=== PATIENT | male | born 1960 | race American Indian/Alaskan Native ===

== ENCOUNTER 2016-07-04 05:50 | Day surgery (SDC) | payer MEDICARE ==
--- NOTE | 2016-06-30 11:08 | Admit Criteria Form ---
Admission Criteria Documentation: AMBULATORY SURGERY EXCEPTION CRITERIA Ambulatory Surgery Exception Criteria ( Place 'X' for any and all applicable criteria): Surgery or procedure performed on ambulatory basis may require inpatient stay for[A] ANY ONE of the following(1)(2)(3)(4)(5)(6)(7)(8)(9): [X] I. A preoperative situation, condition, or finding that warrants inpatient stay as indicated by ANY ONE of the following: [] a) Inpatient care needed because of severity of a disease or condition rather than the surgery (eg, severe cardiac or respiratory disease, severe infection) (15) (16 ) (17) (18) [] b) Emergent procedure (eg, angioplasty for acute ischemia)(19) [] c) Complex surgical approach or situation as indicated by ANY ONE of the following(3): [] i) Open approach needed instead of usual endoscopic, transcatheter, or other less invasive procedure [] ii) Difficult approach because of previous operation [] iii) Airway monitoring required after open neck procedures(20)(21) [] iv) Large mass requiring unusually extensive dissection [] v) Additional complicating feature requiring inpatient care (eg, drain management)(22(23): [X] d) Major surgery in a pt with high anesthetic risk as indicated by ANY ONE of the following (2)(3)(5)(7)(8): [X] i) ASA risk class III or higher (severe systemic disease impairing function) [D] [] ii) Advanced age (eg, older than 85 years)(14)(24) [] iii) Symptomatic heart failure(25) [] iv) Symptomatic asthma or COPD(8)(21) [] v) Morbid obesity with hemodynamic or respiratory problems(20)( 21)(26)(27) [] vi) Obstructive sleep apnea(20)(21) [] vii) Former premature infants who are younger than 60 weeks [] viii) High risk for severe postoperative abnormalities (eg, severe postoperative hypocalcemia after parathyroidectomy for severe hyperparathyroidism)(27)( 28) [] ix) Unstable angina(25) [] e) Drug-related risk requiring inpatient stay as indicated by ANY ONE of the following(5)(10)(14)(32)(33) [] i) Procedure requires discontinuing drugs or other therapy (eg , antiarrhythmic medication, antiseizure medication), which necessitates inpatient observation or treatment.(18)(31) [] ii) Major surgery and high risk drug use as indicated by ANY ONE of the following: [] 1) Active abuse of cocaine or similar drug [] 2) Monoamine oxidase inhibitor use [] 3) Other drug identified as posing risk [] f) Inadequate outpatient care situation as indicated by ANY ONE of the following(5)(10)(14)(32)(33) [] i) Patient lives remote from medical facility and procedure has urgent complication potential, and temporary nearby residence cannot be arranged [] ii) Patient will have postprocedure incapacitation and inadequate assistance at home, or alternative level of care cannot be arranged. [] iii) Patient will have long general anesthesia or procedure side effect resolution time, and competent person to stay with patient on first postoperative night at home or alternative level of care cannot be arranged. []iv) Other inadequate outpatient situation that cannot be handled by other means [] II. A perioperative event, condition, or finding that warrants inpatient stay as indicated by ANY ONE of the following (1)(2)(3): [] a) Inadequate physiologic recovery: cardiovascular, respiratory, or hemodynamic status not normal or near preoperative baseline(18) [] b) Hemodynamic instability [] c) Patient not alert with near normal or baseline mental status [] d) Temperature not normal or as expected and not appropriate for outpatient treatment of condition [] e) Ambulatory or appropriate activity level status not yet achieved post procedure [E](34)(35)(36) [] f) Operative site not appropriate (eg, unexpected or excessive drainage or bleeding) [] g) Postoperative effects not resolved or adequately managed (eg, significant pain or vomiting not appropriate for outpatient or next level of care)(10)(12) [] h) Complicating features requiring inpatient care as indicated by ANY ONE of the following(37): [] i) Severe complications of procedure (eg, bowel injury, airway compromise, vascular injury,severe hemorrhage) [] ii) Extensive (eg, dissection far beyond usual scope of procedure ) or prolonged (eg, 120 minutes beyond usual) surgery needed requiring inpatient postoperative care [] iii) Conversion to an open or complex procedure that requires inpatient care (eg, open vs laparoscopic cholecystectomy, abdominal vs vaginal hysterectomy)(38) [] iv) Comorbid condition or test result identified during or post procedure that requires inpatient care (7) [] v) Malignant hyperthermia(30) [] vi) Other complicating feature requiring inpatient care(22)(23) Inpatient stay may be needed until ALL of the following are present (1)(2)(3)(4) (5)(6)(10)(14)(33)(40): []a) Physiologic recovery: cardiovascular, respiratory, and hemodynamic status normal or near preoperative baseline []b) Hemodynamic stability []c) Patient alert, with near normal or baseline mental status []d) Temperature appropriate: patient afebrile or temperature appropriate for outpt treatment of condition []e) Activity level appropriate: ambulatory or appropriate activity level post procedure []f) Operative site appropriate as indicated by ALL of the following: []i) Site dry or with expected drainage []ii) Any blood noted is as expected for procedure. []g) Postoperative effects resolved or managed as indicated by ALL of the following: []i) Pain management appropriate for outpatient (or next level of) care(10) []ii) Minimal nausea and vomiting: if present, successfully treated with oral medication(12) []iii) Headache, dizziness, or drowsiness (if present) are mild. []h) Voiding status acceptable as indicated by ANY ONE of the following: []i) Voiding spontaneously []ii) No voiding but instructions given for follow-up in 6 to 8 hours []iii) Urinary catheter in place, and instructions given for follow-up []i) Complicating features requiring inpatient care manageable at a lower level of care(37) []j) Comorbid conditions manageable at a lower level of care(37) The original [employer] content created by [employer] has been revised. The portions of the content which have been revised are identified through the use of italic text or in bold, and [employer] has neither reviewed nor approved the modified material. All other unmodified content is copyright [employer]. Please see references footnoted in the original [employer] edition 2016
[~2016-07-04 05:50] MED LIST: PEPCID PO NR
[2016-07-04] MEDS ORDERED: NACL 0.9% 1000 ML 1,000 ML IV SCH (06:00)
[2016-07-04] MEDS ORDERED: ANCEF/STERILE WATER 2 GM/20 ML 2 GM/20 ML SYRINGE IV NR (06:00)
[2016-07-04] MEDS ORDERED: NACL BACTERIOSTATIC INFILTRATI ONE (06:37)
--- NOTE | 2016-07-04 06:59 | Anesthesia Day of Surgery ---
Anesthesia Day of Surgery - Day of Surgery Patient Examined: Yes Patient H&P Reviewed: Yes Patient is NPO: Yes Beta Blockers: Yes
[2016-07-04] MEDS ORDERED: ZOFRAN IV PRN (07:01)
[2016-07-04] MEDS ORDERED: DILAUDID IV PRN (07:01)
--- NOTE | 2016-07-04 07:01 | Anesthesia Consultation ---
Anesthesia Consult and Med Hx Date of service: 07/04/16 - Airway Anesthetic Teeth Evaluation: Edentulous ROM Head & Neck: Adequate Mental/Hyoid Distance: Adequate Mallampati Class: Class II Intubation Access Assessment: Probably Good - Pulmonary Exam CTA: Yes (blbs clear) - Cardiac Exam Cardiac Exam: RRR - Pre-Operative Health Status ASA Pre-Surgery Classification: ASA4 Proposed Anesthetic Plan: General - Pulmonary Hx Smoking: Yes (1PPD) COPD: Yes - Cardiovascular System Hx Hypertension: Yes (5-6 YRS) Hx Coronary Artery Disease: Yes Hx Heart Attack/AMI: Yes (2016) Hx Heart Murmur: Yes Hx Peripheral Vascular Disease: Yes - Central Nervous System Hx Back Pain: Yes Hx Psychiatric Problems: No - Gastrointestinal Hx Gastroesophageal Reflux Disease: Yes (nausea) - Endocrine Hx Renal Disease: Yes Hx End Stage Renal Disease: Yes (on HD) Hx Cirrhosis: Yes Hx Liver Disease: Yes (CIRRHOSIS , HEPATITIS B) Hx Non-Insulin Dependent Diabetes: Yes - Hematic Hx Anemia: Yes - Other Systems Hx Cancer: No
[2016-07-04] MEDS ORDERED: MARCAINE 0.25% INFILTRATI ONE ×3 (07:07→08:59)
[2016-07-04] MEDS ORDERED: NACL 0.9% 500 ML 500 ML ONE (07:07)
[2016-07-04] MEDS ORDERED: HEPARIN 10,000 UNITS/10 ML ONE (07:07)
[2016-07-04] MEDS ORDERED: PROTAMINE SULFATE ONE (07:07)
[2016-07-04] MEDS ORDERED: PAPAVERINE ONE (07:07)
[2016-07-04] MEDS ORDERED: DIPRIVAN 10 MG/ML IV ONE ×2 (07:25)
[2016-07-04] MEDS ORDERED: XYLOCAINE MPF 2% ONE (07:25)
[2016-07-04] MEDS ORDERED: SUBLIMAZE ONE (07:25)
[2016-07-04] MEDS ORDERED: ZEMURON IV ONE (07:47)
[2016-07-04] MEDS ORDERED: NACL 0.9% 100 ML ONE (08:32)
[2016-07-04] MEDS ORDERED: DECADRON ONE (08:36)
[2016-07-04] MEDS ORDERED: ZOFRAN ONE (08:36)
[2016-07-04] MEDS ORDERED: HEPARIN 10,000 UNITS/10 ML 2,000 UNIT in NACL 0.9% 500 ML 500 ML IR ONE (08:39)
[2016-07-04] MEDS ORDERED: NACL 0.9% 1000 ML IR ONE (08:59)
[2016-07-04] MEDS ORDERED: NEO SYNEPHRINE/NS Syringe(OR USE) IV ONE (09:30)
[2016-07-04] MEDS ORDERED: NEOSTIGMINE ONE ×2 (09:30→09:50)
[2016-07-04] MEDS ORDERED: ROBINUL ONE (09:47)
--- NOTE | 2016-07-04 09:58 | Operative Report ---
Operative Report Operative Report: Date of procedure: 07/04/2016 Pre-operative diagnosis: Right hand ischemia due to steal syndrome from AV fistula. High takeoff of the radial artery. Post-operative diagnosis: The same Procedure name(s): 1. Ligation of radial artery just distal to the arteriovenous anastomosis. 2. Transposition of the radial artery onto the brachial artery. Surgeon: Dony Elmore MD, RPVI Pin Attacher: SHAWN Santana Anesthesia: Gen./local Findings 1. High takeoff of the right radial artery. 2. The fistula is anastomosed to the radial artery above antecubital fossa. 3. Calcified arteries. 4. Preserved thrill in the fistula at the end of the procedure. 5. Palpable pulse and strong triphasic Doppler signal in the radial artery distal to the radial brachial anastomosis. 6. Palpable pulse and strong triphasic Doppler signal in the proximal ulnar artery. 7. Positive Doppler signal in the radial artery at the wrist. Specimens: None EBL: 50 mL IV fluids: 450 mL Urine output: None Disposition: The recovery Indications: Patient was steal syndrome and in usual anatomy where the radial artery originated from the brachial artery at the axilla and the vein was anastomosis to the radial artery just above the antecubital fossa. Procedure: Patient was brought to the operating room laid on table in supine position. Right arm was prepped and draped in usual sterile fashion. The both radial artery and anastomosis were marked on the skin with a help of an ultrasound. The brachial artery was marked on the skin is well after being visualized with ultrasound. The skin was infiltrated with quarter percent Marcaine over the amador for brachial artery. The incision was made using #15 blade. Subcutaneous tissue was divided with Bovie electrocautery. The radial artery distal to the anastomosis was immediately located and dissected free back to the anastomosis. Once enough artery was dissected free it was encircled with a vessel loop. The incision was deepened immediately lateral to the radial artery using Bovie electrocautery. The brachial artery was located and dissected free; the care was taken not to injure the brachial vein. The brachial artery was encircled with Vesseloops proximally and distally patient received 3000 units of intravenous heparin. The radial artery was occluded distally with a vascular clamp. The arteriovenous anastomosis was also occluded with a vascular clamp. The radial artery was divided to right distal to the anastomosis. The proximal portion attached to the anastomosis was oversewn using 6-0 Prolene running suture. The distal portion of the artery was passed underneath the brachial vein to the brachial artery. The arteriotomy on brachial artery was made and 11 blade after it was controlled with vessel loops. It was extended with Kumar scissors. The radial artery was spatulated. The arterial-arterial anastomosis was performed using a running 6-0 Prolene stitch. Despite significant calcifications the anastomosis was completed in the routine fashion. Prior to completion of the anastomosis all arteries were back bled and there was excellent backbleeding from all 3 sites. Then anastomosis was completed. The clamps were removed. The hemostasis was excellent. There was a strong palpable pulse in the radial artery distal to the anastomosis. All vessels were interrogated with a Doppler. A triphasic Doppler signal was observed in all vessels. I did not feel palpable radial pulse at the wrist but there was a strong Doppler signal at the wrist. Once again hemostasis was observed. An incision was closed using 3-0 Vicryl interrupted subcutaneous sutures and 4-0 Monocryl running subcuticular suture. Patient tolerated procedure well. At the end of the case all instrument and sponge counts were correct.
[2016-07-04] MEDS ORDERED: TOPROL XL PO SCH (10:00)
--- NOTE | 2016-07-04 10:01 | Short Stay Summary ---
Short Stay Documentation - History H&P: obtained from office - Allergies and Medications Current Medications: Allergies metformin Adverse Reaction (Verified 03/30/16 09:16) "SPOT ON LIVER" Home Medications Medication Instructions Recorded Confirmed Last Taken Type HYDROcodone/APAP 10-325 [Pelham 1 each PO Q6HR PRN #20 tablet 06/10/13 07/04/16 07/03/16 19:00 Rx 10-325 mg TAB] Omeprazole [PriLOSEC] 1 tab PO DAILY 06/10/13 07/04/16 07/03/16 21:00 History Ondansetron [Zofran Odt] 8 mg PO TID PRN #20 tab.rapdis 06/10/13 07/04/16 21:00 Rx Vit B Cmplx 3/FA/Vit C/Biotin 1 tab PO TID 06/10/13 07/04/16 06/30/16 17:00 History [Dari-Norah Rx Tablet] Aspirin EC [Aspirin Enteric Coated 81 mg PO QDAY 12/16/15 07/04/16 07/04/16 05: 00 History TAB] Calcium Acetate [Phoslo] 667 mg PO TID 12/16/15 07/04/16 06/30/16 17:00 History Calcium Carbonate [Tums Ultra 1,177 mg PO TID 12/16/15 07/04/16 07/03/16 21:00 History Strength] Dexlansoprazole [Dexilant] 60 mg PO QDAY 12/16/15 07/04/16 07/03/16 08:00 History Ergocalciferol [Vitamin D2] 1 cap PO QWEEK 12/16/15 07/04/16 06/28/16 09:00 History ISOSORBIDE MONOnitrate [Imdur ER] 30 mg PO DAILY #30 tab.er.24h 12/16/1507/03/16 08:00 Rx Losartan [Cozaar] 25 mg PO QDAY #30 tablet 12/16/15 07/04/16 07/03/16 08:00 Rx Metoprolol Xl [Metoprolol 25 mg PO QDAY #30 tablet 12/16/15 07/04/16 07/04/16 07 :30 Rx SUCCINATE ER TAB] Simvastatin [Zocor TAB] 40 mg PO QHS #30 tablet 12/16/15 07/04/16 06/30/16 21: 00 Rx Active Medications Famotidine (Pepcid) 20 mg PO PREOP NR Stop: 07/04/16 23:54 Last Admin: 07/04/16 06:50 Dose: 20 mg Hydromorphone HCl (Dilaudid) 0.25 mg IV Q10MIN PRN PRN Reason: Pain, Moderate (4-6) Stop: 07/04/16 23:59 Cefazolin Sodium (Ancef/Sterile Water 2 Gm/20 Ml) 2 gm in 20 mls @ 80 mls/hr IV PREOP NR PRN Reason: Protocol Stop: 07/04/16 23:59 Sodium Chloride (Nacl 0.9% 1000 Ml) 1,000 mls @ 42 mls/hr IV DIRECT JOSH Last Admin: 07/04/16 06:40 Dose: 42 mls/hr Metoprolol Succinate (Toprol Xl) 25 mg PO QDAY JOSH Last Admin: 07/04/16 07:30 Dose: 25 mg - Brief post op/procedure progress note Procedure: Pre-operative diagnosis: Right hand ischemia due to steal syndrome from AV fistula. High takeoff of the radial artery. Post-operative diagnosis: The same Procedure name(s): 1. Ligation of radial artery just distal to the arteriovenous anastomosis. 2. Transposition of the radial artery onto the brachial artery. Surgeon: Dony Elmore MD, RPVI Pathology Teacher: SHAWN Santana Anesthesia: Gen./local Findings 1. High takeoff of the right radial artery. 2. The fistula is anastomosed to the radial artery above antecubital fossa. 3. Calcified arteries. 4. Preserved thrill in the fistula at the end of the procedure. 5. Palpable pulse and strong triphasic Doppler signal in the radial artery distal to the radial brachial anastomosis. 6. Palpable pulse and strong triphasic Doppler signal in the proximal ulnar artery. 7. Positive Doppler signal in the radial artery at the wrist. Specimens: None EBL: 50 mL IV fluids: 450 mL Urine output: None Disposition: The recovery - Disposition Condition at discharge: Good Disposition: DISCHARGED TO HOME OR SELFCARE Short Stay Discharge Plan Activity: advance as tolerated, avoid flexion, other (no heavy lifting for 6 weeks with right arm.) Wound: open to air Additional Instructions: Follow-up with Dr. Elmore in 2 weeks. Follow up with: PRIMARY CARE, [Primary Care Provider] - 7 Days
[2016-07-04] MEDS ORDERED: D50W (25GM) IV ONE (10:23)
[2016-07-04] MEDS ORDERED: D50W (25GM) IV PRN (10:28)
[2016-07-04 12:58] VITALS: BP 106/66
--- NOTE | 2016-07-04 13:30 | Post Anesthesia Evaluation ---
- Post Anesthesia Evaluation Patient Participated: Yes Airway Patent: Yes Stable Respiratory Function: Yes Nausea/Vomiting: No Temp > 96.8F: Yes Pain Manageable: Yes Adequeate Hydration: Yes Anesthesia Complications: No Block Receding Appropriately: Not Applicable Patient on Ventilator: No
== END 2016-07-04 05:51 | disposition home or self-care (01) ==
LOC: OR 05:50
PROVIDERS: ATTEND Surgery Vascular Surgery
DX: T82.898A Other specified complication of vascular prosthetic devices, implants and grafts, initial encounter (principal); E11.22 Type 2 diabetes mellitus with diabetic chronic kidney disease; I12.0 Hypertensive chronic kidney disease with stage 5 chronic kidney disease or end stage renal disease; N18.6 End stage renal disease; I25.10 Atherosclerotic heart disease of native coronary artery without angina pectoris; J44.9 Chronic obstructive pulmonary disease, unspecified; D64.9 Anemia, unspecified; K21.9 Gastro-esophageal reflux disease without esophagitis; F17.210 Nicotine dependence, cigarettes, uncomplicated; Y83.2 Surgical operation with anastomosis, bypass or graft as the cause of abnormal reaction of the patient, or of later complication, without mention of misadventure at the time of the procedure
CPT/HCPCS: 36415; 36838; 82962; 84132; J0690; J1100; J1644; J2370; J2405; J2704; J2710; J3010; J7030; J7040; J2440; J2720

== ENCOUNTER 2016-07-05 04:27 | Emergency (ER) | payer SELFPAY ==
[2016-07-05 04:41] VITALS: BP 147/82
[2016-07-05 05:01] LABS: Basophils % (Auto) 0.6 % (0.0-1.8); Eosinophils % (Auto) 0.4 % (0.0-4.3); Hematocrit 40.3 % (35.5-45.6); Hemoglobin 13.5 gm/dl (11.8-15.2); Mean Corpuscular HGB Conc 34 % (32-34); Mean Corpuscular Hemoglobin 34 pg (28-32); Mean Corpuscular Volume 101 fl (84-94); Red Blood Count 3.98 M/mm3 (3.65-5.03); Red Cell Distribution Width 16.6 % (13.2-15.2); White Blood Count 8.3 K/mm3 (4.5-11.0)
[2016-07-05 05:05] LABS: Platelet Count 94 K/mm3 (140-440)
[2016-07-05 05:19] LABS: BUN/Creatinine Ratio 3.49; Calcium 8.1 mg/dL (8.4-10.2); Chloride 89.4 mmol/L (98-107)
== END 2016-07-05 04:45 | disposition left against medical advice (07) ==
LOC: ED 04:27
DX: R10.9 Unspecified abdominal pain (principal); Z53.21 Procedure and treatment not carried out due to patient leaving prior to being seen by health care provider
CPT/HCPCS: 36415; 80048; 85025

== ENCOUNTER 2016-10-02 11:25 | Emergency (ER) | payer MEDICARE ==
--- NOTE | 2016-10-02 13:18 | Emergency Department Report ---
Chief Complaint: Rectal Pain Stated Complaint: HEMORRHOIDS Time Seen by Provider: 10/02/16 13:15 - HPI History of Present Illness: pt c/o abd pain x 1 week pt also c/o hemorrhoid pain - ROS Review of Systems: - constipation + diarrhea + abd pain - Exam Physical Exam: thin male, no acute distress abd soft, suprapubic mildly ttp MSE screening note: Focused history and physical exam performed. Due to findings the following was ordered: labs ED Disposition for MSE Condition: Stable
[2016-10-02 13:19] VITALS: BP 115/69
[2016-10-02 13:45] LABS: Basophils % (Auto) 1.3 % (0.0-1.8); Hematocrit 43.1 % (35.5-45.6); Hemoglobin 14.5 gm/dl (11.8-15.2); Mean Corpuscular HGB Conc 34 % (32-34); Mean Corpuscular Hemoglobin 33 pg (28-32); Mean Corpuscular Volume 98 fl (84-94); Red Cell Distribution Width 16.3 % (13.2-15.2); White Blood Count 7.4 K/mm3 (4.5-11.0)
[2016-10-02 13:57] LABS: Albumin 4.2 g/dL (3.9-5); Albumin/Globulin Ratio 1.3 %; BUN/Creatinine Ratio 3.66; Bilirubin,Total 0.6 mg/dL (0.1-1.2); Calcium 7.4 mg/dL (8.4-10.2); Chloride 90.7 mmol/L (98-107); Potassium 3.5 mmol/L (3.6-5.0); Total Protein 7.5 g/dL (6.3-8.2)
[2016-10-02 14:31] LABS: Platelet Count 61 K/mm3 (140-440)
--- NOTE | 2016-10-10 00:24 | ED Elopement Review ---
ED Pt Elopement review - Results review Lab results: Laboratory Tests 10/02/16 10/02/16 13:22 13:22 WBC 7.4 RBC 4.40 Hgb 14.5 Hct 43.1 MCV 98 H MCH 33 H MCHC 34 RDW 16.3 H Plt Count 61 L Lymph % (Auto) 27.6 Pershing % (Auto) 6.9 Eos % (Auto) 2.0 Baso % (Auto) 1.3 Lymph # 2.0 Pershing # 0.5 Eos # 0.1 Baso # 0.1 Seg Neutrophils % 62.2 Seg Neutrophils # 4.6 Sodium 136 L Potassium 3.5 L Chloride 90.7 L Carbon Dioxide 18 L Anion Gap 31 BUN 63 H Creatinine 17.2 H Estimated GFR 3 BUN/Creatinine Ratio 3.66 Glucose 83 Calcium 7.4 L Total Bilirubin 0.60 AST 30 ALT 17 Alkaline Phosphatase 40 Total Protein 7.5 Albumin 4.2 Albumin/Globulin Ratio 1.3 - Call Back decision Pt Call Back Decision: No action required
== END 2016-10-02 14:30 | disposition left against medical advice (07) ==
LOC: ED 11:25
DX: Z53.21 Procedure and treatment not carried out due to patient leaving prior to being seen by health care provider (principal)
CPT/HCPCS: 36415; 80053; 85025

== ENCOUNTER 2018-09-27 01:46 | Observation (INO) | payer MEDICARE ==
[2018-09-27 02:53] LABS: Basophils # (Auto) 0.1 K/mm3 (0.0-0.1); Basophils % (Auto) 1.1 % (0.0-1.8); Eosinophils # (Auto) 0.2 K/mm3 (0.0-0.4); Eosinophils % (Auto) 3.2 % (0.0-4.3); Hematocrit 41.9 % (35.5-45.6); Hemoglobin 13.5 gm/dl (11.8-15.2); Lymphocytes # (Auto) 1.1 K/mm3 (1.2-5.4); Lymphocytes % (Auto) 21.3 % (13.4-35.0); Mean Corpuscular HGB Conc 32 % (32-34); Mean Corpuscular Volume 90 fl (84-94); Monocytes # (Auto) 0.6 K/mm3 (0.0-0.8); Monocytes % (Auto) 10.8 % (0.0-7.3); Red Blood Count 4.66 M/mm3 (3.65-5.03); Red Cell Distribution Width 18.1 % (13.2-15.2)
[2018-09-27 02:56] LABS: Platelet Count 60 K/mm3 (140-440)
[2018-09-27 04:21] LABS: Albumin 4.2 g/dL (3.9-5); Calcium 9.6 mg/dL (8.4-10.2)
[2018-09-27] MEDS ORDERED: ZOFRAN IV ONE ×2 (05:52→08:43)
[2018-09-27] MEDS ORDERED: ZOFRAN ONE (05:55)
--- NOTE | 2018-09-27 06:09 | Emergency Department Report ---
ED Abdominal Pain HPI - General Chief Complaint: Abdominal Pain Stated Complaint: ABDOMINAL PAIN, N/V Time Seen by Provider: 09/27/18 06:08 Source: patient Mode of arrival: Ambulatory Limitations: No Limitations - History of Present Illness Initial Comments: Patient is a 57-year-old male presents to emergency room with complaints of abdominal pain. Patient states his pain started about 7 hours ago. Patient states the pain is worse with movement and vomiting. Patient states the pain is better with rest. Patient is complaining of nausea and vomiting as well. Patient states the pain is a 10 out of 10. Patient states the pain is nonradiating. Patient denies fever and chills. MD Complaint: abdominal pain -: Sudden Location: diffuse Radiation: none Migration to: no migration Severity: severe Severity scale (0 -10): 10 Quality: stabbing Consistency: constant Improves With: rest Worsens With: vomiting, movement Associated Symptoms: nausea, vomiting. denies: diarrhea, fever, chills, constipation, dysuria, hematemesis, hematochezia, melena, hematuria, syncope - Related Data Home Medications Medication Instructions Recorded Confirmed Last Taken Omeprazole [PriLOSEC] 1 tab PO DAILY 06/10/13 07/04/16 07/03/16 21:00 Vit B Comp No.3/Folic/C/Biotin 1 tab PO TID 06/10/13 07/04/16 06/30/16 17:00 [Dari-Norah Rx Tablet] Aspirin EC [Halfprin EC] 81 mg PO QDAY 12/16/15 07/04/16 07/04/16 05:00 Calcium Acetate [Phoslo] 667 mg PO TID 12/16/15 07/04/16 06/30/16 17:00 Calcium Carbonate [Tums Ultra 1,177 mg PO TID 12/16/15 07/04/16 07/03/16 21:00 Strength 1177MG CHEW] Dexlansoprazole [Dexilant] 60 mg PO QDAY 12/16/15 07/04/16 07/03/16 08:00 Ergocalciferol [Vitamin D2] 1 cap PO QWEEK 12/16/15 07/04/16 06/28/16 09:00 Previous Rx's Medication Instructions Recorded Last Taken Type HYDROcodone/APAP 10-325 [Datil 1 each PO Q6HR PRN #20 tablet 04/29/14 05/22/17 19:00 Rx 10-325 mg TAB] Ondansetron [Zofran Odt] 8 mg PO TID PRN #20 tab.rapdis 06/10/13 07/03/16 21:00 Rx ISOSORBIDE MONOnitrate [Imdur ER] 30 mg PO DAILY #30 tab.er.24h 12/16/15 08:00 Rx Losartan [Cozaar] 25 mg PO QDAY #30 tablet 12/16/15 07/03/16 08:00 Rx Metoprolol Xl [Metoprolol 25 mg PO QDAY #30 tablet 12/16/15 07/04/16 07:30 Rx SUCCINATE ER TAB] Simvastatin [Zocor TAB] 40 mg PO QHS #30 tablet 12/16/15 06/30/16 21:00 Rx oxyCODONE /ACETAMINOPHEN [Percocet 1 tab PO Q4HR #40 tab 07/04/16 Unknown Rx 5/325] Allergies Allergy/AdvReac Type Severity Reaction Status Date / Time metformin AdvReac "SPOT ON Verified 03/30/16 09:16 LIVER" ED Review of Systems ROS: Stated complaint: ABDOMINAL PAIN, N/V Other details as noted in HPI Constitutional: denies: chills, fever Eyes: denies: eye pain, eye discharge, vision change ENT: denies: ear pain, throat pain Respiratory: denies: cough, shortness of breath, wheezing Cardiovascular: denies: chest pain, palpitations Endocrine: no symptoms reported Gastrointestinal: abdominal pain, nausea, vomiting. denies: diarrhea, constipation, hematemesis, melena, hematochezia Genitourinary: denies: urgency, dysuria Musculoskeletal: denies: back pain, joint swelling, arthralgia Skin: denies: rash, lesions Neurological: denies: headache, weakness, paresthesias Psychiatric: denies: anxiety, depression Hematological/Lymphatic: denies: easy bleeding, easy bruising ED Past Medical Hx - Past Medical History Previous Medical History?: Yes Hx Hypertension: Yes (5-6 YRS) Hx Heart Attack/AMI: Yes (2015) Hx Congestive Heart Failure: Yes (4-5 YRS) Hx Diabetes: Yes (20YRS) Hx GERD: Yes Hx Liver Disease: Yes (CIRRHOSIS , HEPATITIS B) Hx Renal Disease: Yes (Dialysis M,W,F) Hx COPD: Yes Additional medical history: Anemia - Surgical History Past Surgical History?: Yes Hx Cholecystectomy: Yes Additional Surgical History: left dialysis graft, Toe amputation. FISTULA RIGHT ARM - Family History Family history: no significant - Social History Smoking Status: Current Every Day Smoker Substance Use Type: None - Medications Home Medications: Home Medications Medication Instructions Recorded Confirmed Last Taken Type HYDROcodone/APAP 10-325 [Datil 1 each PO Q6HR PRN #20 tablet 06/10/13 07/04/16 07/03/16 19:00 Rx 10-325 mg TAB] Omeprazole [PriLOSEC] 1 tab PO DAILY 06/10/13 07/04/16 07/03/16 21:00 History Ondansetron [Zofran Odt] 8 mg PO TID PRN #20 tab.rapdis 06/10/13 07/04/16 07/03/16 21:00 Rx Vit B Comp No.3/Folic/C/Biotin 1 tab PO TID 06/10/13 07/04/16 06/30/16 17:00 History [Dari-Norah Rx Tablet] Aspirin EC [Halfprin EC] 81 mg PO QDAY 12/16/15 07/04/16 07/04/16 05:00 History Calcium Acetate [Phoslo] 667 mg PO TID 12/16/15 07/04/16 06/30/16 17:00 History Calcium Carbonate [Tums Ultra 1,177 mg PO TID 12/16/15 07/04/16 07/03/16 21:00 History Strength 1177MG CHEW] Dexlansoprazole [Dexilant] 60 mg PO QDAY 12/16/15 07/04/16 07/03/16 08:00 History Ergocalciferol [Vitamin D2] 1 cap PO QWEEK 12/16/15 07/04/16 06/28/16 09:00 History ISOSORBIDE MONOnitrate [Imdur ER] 30 mg PO DAILY #30 tab.er.24h 12/16/15 07/04/16 07/03/16 08:00 Rx Losartan [Cozaar] 25 mg PO QDAY #30 tablet 12/16/15 07/04/16 07/03/16 08:00 Rx Metoprolol Xl [Metoprolol 25 mg PO QDAY #30 tablet 12/16/15 07/04/16 07/04/16 07:30 Rx SUCCINATE ER TAB] Simvastatin [Zocor TAB] 40 mg PO QHS #30 tablet 12/16/15 07/04/16 06/30/16 21:00 Rx oxyCODONE /ACETAMINOPHEN [Percocet 1 tab PO Q4HR #40 tab 07/04/16 Unknown Rx 5/325] ED Physical Exam - General Limitations: No Limitations General appearance: alert, in no apparent distress - Head Head exam: Present: atraumatic, normocephalic - Eye Eye exam: Present: normal appearance, PERRL Pupils: Present: normal accommodation - ENT ENT exam: Present: mucous membranes dry - Neck Neck exam: Present: normal inspection - Respiratory Respiratory exam: Present: normal lung sounds bilaterally. Absent: respiratory distress, wheezes, rales - Cardiovascular Cardiovascular Exam: Present: regular rate, normal rhythm. Absent: systolic murmur, diastolic murmur, rubs, gallop - GI/Abdominal GI/Abdominal exam: Present: soft, tenderness (generalized tenderness), normal bowel sounds - Rectal Rectal exam: Present: deferred - Extremities Exam Extremities exam: Present: normal inspection - Back Exam Back exam: Present: normal inspection - Neurological Exam Neurological exam: Present: alert, oriented X3 - Psychiatric Psychiatric exam: Present: normal affect, normal mood - Skin Skin exam: Present: warm, dry, intact, normal color. Absent: rash ED Course Vital Signs 09/27/18 09/27/18 09/27/18 01:51 04:24 04:42 Temperature 97.8 F Pulse Rate 79 75 Respiratory 20 16 18 Rate Blood Pressure 124/46 Blood Pressure 150/53 [Left] O2 Sat by Pulse 100 100 100 Oximetry 09/27/18 09/27/18 09/27/18 05:15 05:21 05:31 Temperature Pulse Rate Respiratory Rate Blood Pressure 147/63 147/63 147/63 Blood Pressure [Left] O2 Sat by Pulse 100 100 100 Oximetry 09/27/18 09/27/18 09/27/18 05:41 05:51 06:01 Temperature Pulse Rate Respiratory Rate Blood Pressure 147/63 147/63 147/63 Blood Pressure [Left] O2 Sat by Pulse 100 100 100 Oximetry 09/27/18 09/27/18 09/27/18 06:25 06:31 06:41 Temperature Pulse Rate Respiratory Rate Blood Pressure Blood Pressure [Left] O2 Sat by Pulse 100 100 99 Oximetry 09/27/18 09/27/18 09/27/18 06:51 07:01 07:11 Temperature Pulse Rate Respiratory Rate Blood Pressure Blood Pressure [Left] O2 Sat by Pulse 100 99 100 Oximetry 09/27/18 09/27/18 09/27/18 07:21 07:31 07:41 Temperature Pulse Rate Respiratory Rate Blood Pressure Blood Pressure [Left] O2 Sat by Pulse 100 100 100 Oximetry 09/27/18 09/27/18 09/27/18 07:51 08:01 08:11 Temperature Pulse Rate Respiratory Rate Blood Pressure Blood Pressure [Left] O2 Sat by Pulse 100 99 100 Oximetry 09/27/18 09/27/18 09/27/18 08:21 08:31 08:40 Temperature 97.8 F Pulse Rate 99 H Respiratory 18 Rate Blood Pressure Blood Pressure 119/70 [Left] O2 Sat by Pulse 100 100 99 Oximetry 09/27/18 09/27/18 09/27/18 08:41 08:51 09:00 Temperature Pulse Rate Respiratory Rate Blood Pressure 119/70 149/70 123/79 Blood Pressure [Left] O2 Sat by Pulse 100 100 100 Oximetry 09/27/18 09/27/18 09/27/18 09:01 09:11 09:21 Temperature Pulse Rate 108 H Respiratory Rate Blood Pressure 123/79 129/78 Blood Pressure 123/79 [Left] O2 Sat by Pulse 100 100 100 Oximetry 09/27/18 09:30 Temperature Pulse Rate Respiratory Rate Blood Pressure 129/78 Blood Pressure [Left] O2 Sat by Pulse 100 Oximetry - Reevaluation(s) Reevaluation #1: Discussed all results with patient. Patient to be admitted to the hospitalist service. Patient agrees with plan of care. 09/27/18 07:14 - Consultations Consultation #1: Hospitalist consulted for admission. Hospitalist to admit patient. Bridging orders are placed. 09/27/18 07:10 ED Medical Decision Making - Lab Data Result diagrams: 09/27/18 02:39 09/27/18 02:39 - Radiology Data Radiology results: report reviewed CT ABDOMEN AND PELVIS WITHOUT CONTRAST HISTORY: abd pain, n,v. COMPARISON: CT abdomen/pelvis from 03/31/2016 TECHNIQUE: CT images of the abdomen and pelvis were obtained without administration of intravenous contrast. All CT scans at this location are performed using CT dose reduction for ALARA by means of automated exposure control. FINDINGS: Lungs/bones: Lung bases are clear. There is DJD in the spine and pelvis with no acute osseous abnormality identified. Abdomen/pelvis: Cirrhotic morphology of the liver again noted with splenomegaly and varices. No significant ascites. The gallbladder is surgically absent. The pancreas and proximal GI tract appear unremarkable. There is mild bilateral adrenal thickening. Multiple simple bilateral renal cysts again noted as well as a few tiny parenchymal calcifications. There are extensive Monckeberg-type vascular calcifications, often seen with diabetics. Urinary bladder is mostly collapsed and contains a small stone measuring 7 mm on image #159 of series 2. No pelvic free fluid. No acute colonic abnormality identified. The appendix and terminal ileum are normal. IMPRESSION: 1. No acute abnormality identified. 2. Cirrhosis and sequelae of portal venous hypertension and additional incidental findings as above. - Medical Decision Making Patient is a 57-year-old emergency room with complaints of abdominal pain and nausea vomiting. Patient CT negative for acute findings. Patient's labs consistent with end-stage renal disease and thrombocytopenia.. Patient given multiple antiemetics and pain meds and unable to control the patient's symptoms. Patient admitted to the hospital service. - Differential Diagnosis nausea vomiting. Abdominal pain. Gastroenteritis. Critical Care Time: Yes Critical care attestation.: If time is entered above; I have spent that time in minutes in the direct care of this critically ill patient, excluding procedure time. Critical Care Time: 35 minutes ED Disposition Clinical Impression: Intractable abdominal pain, Gastroenteritis, End stage renal disease on margarita lysis, Thrombocytopenia Intractable nausea and vomiting Qualifiers: Vomiting type: unspecified Qualified Code(s): R11.2 - Nausea with vomiting, unspecified Abdominal pain Qualifiers: Abdominal location: generalized Qualified Code(s): R10.84 - Generalized abdominal pain Disposition: 09 OP ADMIT IP TO THIS HOSP Is pt being admited?: Yes Does the pt Need Aspirin: No Condition: Critical Time of Disposition: 07:08
[2018-09-27] MEDS ORDERED: PHENERGAN PR ONE (06:29)
[2018-09-27] MEDS ORDERED: DILAUDID IV ONE ×2 (06:29→08:44)
--- NOTE | 2018-09-27 06:51 | Cat Scan Report ---
CT ABDOMEN AND PELVIS WITHOUT CONTRAST HISTORY: abd pain, n,v. COMPARISON: CT abdomen/pelvis from 03/31/2016 TECHNIQUE: CT images of the abdomen and pelvis were obtained without administration of intravenous co ntrast. All CT scans at this location are performed using CT dose reduction for ALARA by means of au tomated exposure control. FINDINGS: Lungs/bones: Lung bases are clear. There is DJD in the spine and pelvis with no acute osseous abnorm ality identified. Abdomen/pelvis: Cirrhotic morphology of the liver again noted with splenomegaly and varices. No sign ificant ascites. The gallbladder is surgically absent. The pancreas and proximal GI tract appear unremarkable. There i s mild bilateral adrenal thickening. Multiple simple bilateral renal cysts again noted as well as a f ew tiny parenchymal calcifications. There are extensive Monckeberg-type vascular calcifications, ofte n seen with diabetics. Urinary bladder is mostly collapsed and contains a small stone measuring 7 mm on image #159 of series 2. No pelvic free fluid. No acute colonic abnormality identified. The appendix and terminal ileum ar e normal. IMPRESSION: 1. No acute abnormality identified. 2. Cirrhosis and sequelae of portal venous hypertension and additional incidental findings as above. Signer Name: James Faye MD Signed: 09/27/2018 6:46 AM Workstation Name: [id number][id number]
--- NOTE | 2018-09-27 08:50 | History and Physical Report ---
History of Present Illness Date of examination: 09/27/18 Date of admission: 09/27/18 History of present illness: Patient is a 57-year-old male with h/o ESRD, cirrhosis, HTN presents to emergenc y room with complaints of epigastric abdominal pain which started about 7 hours ago prior coming to ER. Patient states the pain is worse with movement and vomiting. Patient states the pain is better with rest. Patient is complaining of nausea and vomiting as well. Patient states the pain is a 10 out of 10, nonradiating. Patient denies any fever and chills. CT abdomen/pelvis in the ER showed no acute process. had prior admissions for similar reason. He is being admitted for further management. Past History Past Medical History: CAD, ESRD, heart failure, hypertension, liver disease (cirrhosis), other Past Surgical History: Other (AV access placement) Social history: smoking Family history: no significant family history Review of Systems Constitutional: no anorexia Ears, nose, mouth and throat: no ear pain Cardiovascular: no chest pain Respiratory: no cough Gastrointestinal: + nausea/vomiting Genitourinary Male: no dysuria Rectal: no pain Musculoskeletal: muscle cramps Integumentary: no rash Neurological: no head injury Psychiatric: no anxiety Endocrine: no cold intolerance Hematologic/Lymphatic: no easy bruising Allergic/Immunologic: no urticaria Medications and Allergies Allergies Allergy/AdvReac Type Severity Reaction Status Date / Time metformin AdvReac "SPOT ON Verified 03/30/16 09:16 LIVER" Home Medications Medication Instructions Recorded Confirmed Last Taken Type HYDROcodone/APAP 10-325 [[place] 1 each PO Q6HR PRN #20 tablet 06/10/13 07/04/16 07/03/16 19:00 Rx 10-325 mg TAB] Omeprazole [PriLOSEC] 1 tab PO DAILY 06/10/13 07/04/16 07/03/16 21:00 History Ondansetron [Zofran Odt] 8 mg PO TID PRN #20 tab.rapdis 06/10/13 07/04/16 07/03/16 21:00 Rx Vit B Comp No.3/Folic/C/Biotin 1 tab PO TID 06/10/13 07/04/16 06/30/16 17:00 History [Dari-Norah Rx Tablet] Aspirin EC [Halfprin EC] 81 mg PO QDAY 12/16/15 07/04/16 07/04/16 05:00 History Calcium Acetate [Phoslo] 667 mg PO TID 12/16/15 07/04/16 06/30/16 17:00 History Calcium Carbonate [Tums Ultra 1,177 mg PO TID 12/16/15 07/04/16 07/03/16 21:00 History Strength 1177MG CHEW] Dexlansoprazole [Dexilant] 60 mg PO QDAY 12/16/15 07/04/16 07/03/16 08:00 History Ergocalciferol [Vitamin D2] 1 cap PO QWEEK 12/16/15 07/04/16 06/28/16 09:00 History ISOSORBIDE MONOnitrate [Imdur ER] 30 mg PO DAILY #30 tab.er.24h 12/16/15 07/04/16 07/03/16 08:00 Rx Losartan [Cozaar] 25 mg PO QDAY #30 tablet 12/16/15 07/04/16 07/03/16 08:00 Rx Metoprolol Xl [Metoprolol 25 mg PO QDAY #30 tablet 12/16/15 07/04/16 07/04/16 07:30 Rx SUCCINATE ER TAB] Simvastatin [Zocor TAB] 40 mg PO QHS #30 tablet 12/16/15 07/04/16 06/30/16 21:00 Rx oxyCODONE /ACETAMINOPHEN [Percocet 1 tab PO Q4HR #40 tab 07/04/16 Unknown Rx 5/325] Exam - Physical Exam Narrative exam: General appearance: Present: mild distress, mal-nourished - EENT Eyes: Present: PERRL ENT: hearing intact, clear oral mucosa - Neck Neck: Present: supple, normal ROM - Respiratory Respiratory effort: normal Respiratory: bilateral: CTA - Cardiovascular Heart Sounds: Present: S1 & S2. Absent: rub, click - Extremities Extremities: pulses symmetrical, No edema Peripheral Pulses: within normal limits - Abdominal General gastrointestinal: Present: soft, + diffuse mild tender, non-distended, normal bowel sounds Male genitourinary: Present: normal - Integumentary Integumentary: Present: clear, warm, dry - Musculoskeletal Musculoskeletal: strength equal bilaterally, - Psychiatric Psychiatric: appropriate mood/affect, intact judgment & insight - Neurologic Neurologic: CNII-XII intact, moves all extremities - Constitutional Vitals: Temp Pulse Resp BP Pulse Ox 97.8 F 99 H 18 119/70 99 09/27/18 08:40 09/27/18 08:40 09/27/18 08:40 09/27/18 08:40 09/27/18 08:40 Results - Labs CBC & Chem 7: 09/27/18 02:39 09/27/18 02:39 Labs: Abnormal lab results 09/27/18 09/27/18 Range/Units 02:39 02:39 RDW 18.1 H (13.2-15.2) % Plt Count 60 L (140-440) K/mm3 [place] % (Auto) 10.8 H (0.0-7.3) % Lymph # 1.1 L (1.2-5.4) K/mm3 Potassium 3.1 L (3.6-5.0) mmol/L Creatinine 9.0 H (0.8-1.5) mg/dL Glucose 169 H (75-100) mg/dL Total Protein 8.8 H (6.3-8.2) g/dL Assessment and Plan 55M with ESRD, htn, CHF, Cirrhosis, DM who present with N/V / ESRD, HD per renal / DM, optimize insulins, fingerstick qachs / Chronic CHF, EF 35% on 2015, optimize meds, fluid status will be maintained via HD / HTn, continue home meds / N/V, Ct abdomen w/o acute finding, place on reglan and PPI /Thrombocytopenia, likely from liver disease /DVT Px, SCD CT abdomen/pelvis: 1. No acute abnormality identified. 2. Cirrhosis and sequelae of portal venous hypertension and additional incidental findings as above.
[2018-09-27] MEDS ORDERED: NORCO 10/325 PO PRN (08:55)
[2018-09-27] MEDS ORDERED: ZOFRAN ODT PO PRN (08:55)
[2018-09-27] MEDS ORDERED: HEPARIN SUB-Q SCH (10:00)
[2018-09-27] MEDS ORDERED: OMEPRAZOLE PO SCH (10:00)
[2018-09-27] MEDS ORDERED: NON-FORMULARY (Dexlansoprazole [Dexilant] 60 MG) PO SCH (10:00)
[2018-09-27] MEDS: HALFPRIN EC PO SCH (12:03)
[2018-09-27] MEDS: COLACE PO SCH ×2 (12:03→21:52)
[2018-09-27] MEDS: TOPROL XL PO SCH (12:45)
[2018-09-27] MEDS: COZAAR PO SCH (12:45)
[2018-09-27] MEDS: IMDUR PO SCH (12:45)
[2018-09-27] MEDS ORDERED: [UNRECOGNIZED DRUG - REMARK] PO SCH (14:00)
[2018-09-27] MEDS ORDERED: REGLAN PO PRN (14:02)
[2018-09-27] MEDS: PHOSLO PO SCH ×2 (14:13→19:09)
[2018-09-27 20:17] LABS: Hepatitis B Surface Antigen Reactive (Negative); Hepatitis C Virus Antibody Non-Reactive (NonReactive)
[2018-09-27] MEDS ORDERED: PRAVACHOL PO SCH (22:00)
[2018-09-27] MEDS ORDERED: NON-FORMULARY (Simvastatin 40 MG) PO SCH (22:00)
[2018-09-28] MEDS ORDERED: HEPARIN 10,000 UNITS/10 ML IV PRN (09:34)
[2018-09-28] MEDS ORDERED: NACL 0.9% 100 ML IV PRN (09:34)
[2018-09-28] MEDS: PHOSLO PO SCH (09:42)
[2018-09-28] MEDS: COZAAR PO SCH (09:42)
[2018-09-28] MEDS: HALFPRIN EC PO SCH (09:42)
[2018-09-28] MEDS: COLACE PO SCH (09:42)
[2018-09-28] MEDS: TOPROL XL PO SCH (09:43)
[2018-09-28] MEDS: IMDUR PO SCH (09:43)
[2018-09-28] MEDS ORDERED: Renal Caps PO SCH (10:00)
[2018-09-28] MEDS ORDERED: PROTONIX PO SCH (10:00)
--- NOTE | 2018-09-28 11:12 | Progress Note ---
Assessment and Plan 55M with ESRD, htn, CHF, Cirrhosis, DM who present with N/V / ESRD, HD per renal / DM, optimize insulins, fingerstick qachs / Chronic CHF, EF 35% on 2016, optimize meds, fluid status will be maintained via HD / HTn, continue home meds / N/V, Ct abdomen w/o acute finding, place on reglan and PPI /Thrombocytopenia, likely from liver disease /DVT Px, SCD CT abdomen/pelvis: 1. No acute abnormality identified. 2. Cirrhosis and sequelae of portal venous hypertension and additional incidental findings as above. Subjective Date of service: 09/28/18 Interval history: Patient seen and examined c/o nausea but abdominal pain improved Objective - Exam Narrative Exam: General appearance: Present: mild distress, mal-nourished - EENT Eyes: Present: PERRL ENT: hearing intact, clear oral mucosa - Neck Neck: Present: supple, normal ROM - Respiratory Respiratory effort: normal Respiratory: bilateral: CTA - Cardiovascular Heart Sounds: Present: S1 & S2. Absent: rub, click - Extremities Extremities: pulses symmetrical, No edema Peripheral Pulses: within normal limits - Abdominal General gastrointestinal: Present: soft, no tender, non-distended, normal bowel sounds Male genitourinary: Present: normal - Integumentary Integumentary: Present: clear, warm, dry - Musculoskeletal Musculoskeletal: strength equal bilaterally, - Psychiatric Psychiatric: appropriate mood/affect, intact judgment & insight - Neurologic Neurologic: CNII-XII intact, moves all extremities - Constitutional Vitals: Vital Signs - 12hr 09/27/18 09/28/18 09/28/18 23:40 05:05 06:23 Temperature 98.4 F 98.7 F Pulse Rate 83 72 Respiratory 18 16 Rate Blood Pressure 85/35 80/30 Blood Pressure 98/64 [Left] O2 Sat by Pulse 97 97 Oximetry - Labs CBC & Chem 7: 09/27/18 02:39 09/27/18 02:39
--- NOTE | 2018-09-28 12:38 | Discharge Summary ---
Providers - Providers Date of Admission: 09/27/18 07:13 Date of discharge: 09/28/18 Attending physician: JOSE JOSEPH 09/27/18 14:03 Consult to Physician [CONS] Routine Comment: Consulting Provider: JAIMIE LONGORIA Physician Instructions: Reason For Exam: ESRD [facility] Reason for admission: n/v Condition: Critical Pertinent studies: CT abdomen/pelvis: 1. No acute abnormality identified. 2. Cirrhosis and sequelae of portal venous hypertension and additional incidental findings as above. Hospital course: 55M with ESRD, htn, CHF, Cirrhosis, DM who present with N/V. CT abdomen/pelvis w/o any acute findings, placed on reglan and PPI> symptom improved, was tolerating renal diet. was discharged home in stable condition following HD next day. Discharge diagnosis: / ESRD, HD per renal / DM, optimize insulins, fingerstick qachs / Chronic CHF, EF 35% on 2016, optimize meds, fluid status will be maintained via HD / HTn, continue home meds / N/V, Ct abdomen w/o acute finding, placed on reglan and PPI - resolved. Likely GERD /Thrombocytopenia, likely from liver disease /DVT Px, SCD Physical exam; - Exam Narrative Exam: General appearance: Present: mild distress, mal-nourished - EENT Eyes: Present: PERRL ENT: hearing intact, clear oral mucosa - Neck Neck: Present: supple, normal ROM - Respiratory Respiratory effort: normal Respiratory: bilateral: CTA - Cardiovascular Heart Sounds: Present: S1 & S2. Absent: rub, click - Extremities Extremities: pulses symmetrical, No edema Peripheral Pulses: within normal limits - Abdominal General gastrointestinal: Present: soft, no tender, non-distended, normal bowel sounds Male genitourinary: Present: normal - Integumentary Integumentary: Present: clear, warm, dry - Musculoskeletal Musculoskeletal: strength equal bilaterally, - Psychiatric Psychiatric: appropriate mood/affect, intact judgment & insight - Neurologic Neurologic: CNII-XII intact, moves all extremities Disposition: DC-01 TO HOME OR SELFCARE Time spent for discharge: 34 minutes Core Measure Documentation - Palliative Care Palliative Care/ Comfort Measures: Not Applicable - Core Measures Any of the following diagnoses?: none Exam - Constitutional Vitals: Temp Pulse Resp BP Pulse Ox 98.7 F 72 16 98/64 97 09/28/18 05:05 09/28/18 05:05 09/28/18 05:05 09/28/18 06:23 09/28/18 05:05 Plan Activity: advance as tolerated Weight Bearing Status: Weight Bear as Tolerated Diet: renal Special Instructions: restrict fluid intake to (1.2L per day ) Follow up with: SELIN GANNON MD [Primary Care Provider] - 7 Days Prescriptions: Dexlansoprazole [Dexilant] 60 mg PO QDAY #30 cap.bp Metoclopramide [Reglan] 10 mg PO TID #60 tab
[2018-09-28 12:54] VITALS: BP 98/35
--- NOTE | 2018-09-28 13:45 | Consultation ---
History of Present Illness - Reason for Consult Consult date: 09/28/18 end stage renal disease - History of Present Illness Per medical records, patient is a poor historian Patient is a 57-year-old male with h/o ESRD, cirrhosis, HTN presents to emergency room with complaints of epigastric abdominal pain which started about 7 hours ago prior coming to ER. Patient states the pain is worse with movement and vomiting. Patient states the pain is better with rest. Patient is complaining of nausea and vomiting as well. Patient states the pain is a 10 out of 10, nonradiating. Patient denies any fever and chills. CT abdomen/pelvis in the ER showed no acute process. had prior admissions for similar reason. He is being admitted for further management. Past History Past Medical History: ESRD, heart failure, hypertension Family history: no significant family history Medications and Allergies Allergies Allergy/AdvReac Type Severity Reaction Status Date / Time metformin AdvReac "SPOT ON Verified 03/30/16 09:16 LIVER" Home Medications Medication Instructions Recorded Confirmed Last Taken Type HYDROcodone/APAP 10-325 [[place] 1 each PO Q6HR PRN #20 tablet 06/10/13 07/04/16 07/03/16 19:00 Rx 10-325 mg TAB] Vit B Comp No.3/Folic/C/Biotin 1 tab PO TID 06/10/13 07/04/16 06/30/16 17:00 History [Dari-Norah Rx Tablet] Aspirin EC [Halfprin EC] 81 mg PO QDAY 12/16/15 07/04/16 07/04/16 05:00 History Calcium Acetate [Phoslo] 667 mg PO TID 12/16/15 07/04/16 06/30/16 17:00 History Calcium Carbonate [Tums Ultra 1,177 mg PO TID 12/16/15 07/04/16 07/03/16 21:00 History Strength 1177MG CHEW] Ergocalciferol [Vitamin D2] 1 cap PO QWEEK 12/16/15 07/04/16 06/28/16 09:00 History ISOSORBIDE MONOnitrate [Imdur ER] 30 mg PO DAILY #30 tab.er.24h 12/16/15 07/04/16 07/03/16 08:00 Rx Losartan [Cozaar] 25 mg PO QDAY #30 tablet 12/16/15 07/04/16 07/03/16 08:00 Rx Metoprolol Xl [Metoprolol 25 mg PO QDAY #30 tablet 12/16/15 07/04/16 07/04/16 07:30 Rx SUCCINATE ER TAB] Simvastatin [Zocor TAB] 40 mg PO QHS #30 tablet 12/16/15 07/04/16 06/30/16 21:00 Rx Dexlansoprazole [Dexilant] 60 mg PO QDAY #30 nadeem.bp 09/28/18 Unknown Rx Metoclopramide [Reglan] 10 mg PO TID #60 tab 09/28/18 Unknown Rx Active Meds: Active Medications Acetaminophen/Hydrocodone Bitart ([place] 10/325) 1 each PO Q6H PRN PRN Reason: Pain Last Admin: 09/27/18 14:13 Dose: 1 each Documented by: Aspirin (Halfprin Ec) 81 mg PO QDAY [facility] Last Admin: 09/28/18 09:42 Dose: 81 mg Documented by: Calcium Acetate (Phoslo) 667 mg PO TIDWM [facility] Last Admin: 09/28/18 09:42 Dose: 667 mg Documented by: Docusate Sodium (Colace) 100 mg PO BID [facility] Last Admin: 09/28/18 09:42 Dose: 100 mg Documented by: Ergocalciferol (Vitamin D2) 50,000 unit PO [facility] Heparin Sodium (Porcine) (Heparin 10,000 Units/10 Ml) 1,000 unit IV KIKA PRN PRN Reason: hemodialysis Sodium Chloride (Nacl 0.9%) 100 mls @ 999 mls/hr IV KIKA PRN PRN Reason: Hypotension Isosorbide Mononitrate (Imdur) 30 mg PO DAILY [facility] Last Admin: 09/28/18 09:43 Dose: Not Given Documented by: Losartan Potassium (Cozaar) 25 mg PO QDAY [facility] Last Admin: 09/28/18 09:42 Dose: Not Given Documented by: Metoclopramide HCl (Reglan) 10 mg PO Q6H PRN PRN Reason: Nausea And Vomiting Last Admin: 09/27/18 19:07 Dose: 10 mg Documented by: Metoprolol Succinate (Toprol Xl) 25 mg PO QDAY [facility] Last Admin: 09/28/18 09:43 Dose: Not Given Documented by: Multivit/Ca Carb/B Cmplx/FA/Prenat (Renal Caps) 1 cap PO QDAY [facility] Last Admin: 09/28/18 09:42 Dose: 1 cap Documented by: Pantoprazole Sodium (Protonix) 40 mg PO DAILY [facility] Last Admin: 09/28/18 09:42 Dose: 40 mg Documented by: Pravastatin Sodium (Pravachol) 80 mg PO QHS [facility] Last Admin: 09/27/18 21:52 Dose: 80 mg Documented by: Review of Systems All systems: negative Exam - Vital Signs Vital signs: Vital Signs Temp Pulse Resp BP Pulse Ox 97.8 F 79 20 124/46 100 09/27/18 01:51 09/27/18 01:51 09/27/18 01:51 09/27/18 01:51 09/27/18 01:51 - General Appearance General appearance: frail, other (disheveled ) EENT: other (poor dentition) Respiratory: Clear to Ascultation Heart: regular, S1S2 Gastrointestinal: Present: normal. Absent: distended, masses Integumentary: warm and dry Musculoskeletal: Present: other (no edema) Psychiatric: cooperative Results - Lab Results 09/27/18 02:39 09/27/18 02:39 Most recent lab results Calcium 9.6 mg/dL (8.4-10.2) 09/27/18 02:39 Assessment and Plan Impression: * End stage renal disease on HD MWF * Abdominal pain/N/V * Hepatitis B virus * Cirrhosis * Thrombocytopenia Plan: * Due to hepatitis B SAg positive status, HD must be performed in isolation. However, patient is refusing to stay * HD today if patient agrees to stay for treatment today as he missed HD yesterday - otherwise, patient must leave AMA * UF as tolerated * Epogen TIW prn * Renal diet * Dose medications for renal function
[2018-10-02] MEDS ORDERED: VITAMIN D2 PO SCH (12:16)
== END 2018-09-28 14:16 | disposition left against medical advice (07) ==
LOC: ED 01:46 → 3A 07:13 → INTOOBSV 07:13
PROVIDERS: ADMIT Internal Medicine; ATTEND Internal Medicine
DX: R11.2 Nausea with vomiting, unspecified (principal); I13.2 Hypertensive heart and chronic kidney disease with heart failure and with stage 5 chronic kidney disease, or end stage renal disease; N18.6 End stage renal disease; I50.9 Heart failure, unspecified; E11.22 Type 2 diabetes mellitus with diabetic chronic kidney disease; K52.9 Noninfective gastroenteritis and colitis, unspecified; D72.829 Elevated white blood cell count, unspecified; F17.200 Nicotine dependence, unspecified, uncomplicated
CPT/HCPCS: 36415; 74176; 80053; 80074; 82962; 83690; 85025; 96374; 96375; 96376; 99284; 99406; A9270; G0378; J1170; J2405; Q0162; 80320; G0480

== ENCOUNTER 2018-11-10 15:54 | Emergency (ER) | payer MEDICARE ==
--- NOTE | 2018-11-10 16:19 | Event Note ---
ED Screening Note Date of service: 11/10/18 Time: 16:15 ED Screening Note: This is a 58 y.o. M. that presents to the ER with N/V and lower abdominal pain for 2 days. PMH HTN, ESRD on dialysis MWF, DM2, CHF This initial assessment/diagnostic orders/clinical plan/treatment(s) is/are subject to change based on patients health status, clinical progression and re- assessment by fellow clinical providers in the ED. Further treatment and workup at subsequent clinical providers discretion. Patient/guardian urged not to elope from the ED as their condition may be serious if not clinically assessed and managed. Initial orders include: Labs and CT of abdomen and pelvis
--- NOTE | 2018-11-10 17:07 | Cat Scan Report ---
CT ABDOMEN AND PELVIS WITHOUT CONTRAST INDICATION: Lower abdominal pain. COMPARISON: CT abdomen and pelvis without contrast from 09/27/2018. TECHNIQUE: Axial, coronal and sagittal CT imaging of the abdomen and pelvis was performed without co ntrast. Lack of intravenous contrast limits evaluation of the vascular and solid organs. All CT sca ns at this location are performed using CT dose reduction for ALARA by means of automated exposure co ntrol. FINDINGS: LOWER CHEST: The lung bases are clear. The heart size is normal without a pericardial effusion. Diffu se coronary atherosclerosis is seen with previously placed stents. LIVER: The liver is cirrhotic without an additional significant abnormality. BILIARY: Prior cholecystectomy. No biliary ductal dilatation. PANCREAS: No significant abnormality. SPLEEN: No significant abnormality. ADRENALS: No significant abnormality. KIDNEYS AND URETERS: There is moderate bilateral renal atrophy with numerous bilateral renal cysts. N o additional significant abnormality. GI TRACT: No significant abnormality of the stomach, small bowel or colon. Unremarkable appendix. PERITONEUM: No free fluid. No free air. No fluid collection. LYMPH NODES: No significant adenopathy. VASCULATURE: The aorta is normal in caliber with severe generalized atherosclerosis. URINARY BLADDER: Partially collapsed without a distinct acute abnormality. REPRODUCTIVE ORGANS: No significant abnormality. ADDITIONAL FINDINGS: None. SKELETAL SYSTEM: No acute abnormality. IMPRESSION: 1. No acute abnormality of the abdomen or pelvis. 2. Additional findings as above. Signer Name: Lele Pearl MD Signed: 11/10/2018 5:02 PM Workstation Name: [email or web address]
[2018-11-10 17:09] LABS: Basophils # (Auto) 0.1 K/mm3 (0.0-0.1); Basophils % (Auto) 1.3 % (0.0-1.8); Eosinophils # (Auto) 0.1 K/mm3 (0.0-0.4); Eosinophils % (Auto) 1.4 % (0.0-4.3); Hemoglobin 12.9 gm/dl (11.8-15.2); Lymphocytes # (Auto) 1.2 K/mm3 (1.2-5.4); Lymphocytes % (Auto) 20.4 % (13.4-35.0); Mean Corpuscular HGB Conc 32 % (32-34); Mean Corpuscular Volume 87 fl (84-94); Monocytes # (Auto) 0.6 K/mm3 (0.0-0.8); Monocytes % (Auto) 9.8 % (0.0-7.3); Red Blood Count 4.73 M/mm3 (3.65-5.03); Red Cell Distribution Width 17.4 % (13.2-15.2)
[2018-11-10 17:27] LABS: Platelet Count 80 K/mm3 (140-440)
[2018-11-10] MEDS ORDERED: MORPHINE 4 MG/1 ML INJ IM ONE (17:27)
[2018-11-10] MEDS ORDERED: ONDANSETRON 4 MG/2 ML INJ IM ONE (17:27)
--- NOTE | 2018-11-10 17:30 | Emergency Department Report ---
ED Abdominal Pain HPI - General Chief Complaint: Abdominal Pain Stated Complaint: N/V Time Seen by Provider: 11/10/18 16:14 Source: patient, family Mode of arrival: Wheelchair Limitations: Physical Limitation - History of Present Illness Initial Comments: Patient is 58 years old male with history of end-stage renal disease on hemodialysis. Patient presented to the ER complaining of diffuse abdominal pain, crampy in nature associated with nausea and vomiting. Patient denied any diarrhea. No hematemesis, hematochezia or melena. Patient also denied any fever or chills. Patient stated that he had his dialysis 2 days ago and some was to be dialyzed tomorrow. Patient denied any chest pain, shortness of breath or any other complaint. MD Complaint: abdominal pain -: days(s) (3) Location: diffuse Radiation: none Severity: moderate - Related Data Home Medications Medication Instructions Recorded Confirmed Last Taken Vit B Comp No.3/Folic/C/Biotin 1 tab PO TID 06/10/13 07/04/16 06/30/16 17:00 [Dari-Norah Rx Tablet] Aspirin EC [Halfprin EC] 81 mg PO QDAY 12/16/15 07/04/16 07/04/16 05:00 Calcium Acetate [Phoslo] 667 mg PO TID 12/16/15 07/04/16 06/30/16 17:00 Calcium Carbonate [Tums Ultra 1,177 mg PO TID 12/16/15 07/04/16 07/03/16 21:00 Strength 1177MG CHEW] Ergocalciferol [Vitamin D2] 1 cap PO QWEEK 12/16/15 07/04/16 06/28/16 09:00 Previous Rx's Medication Instructions Recorded Last Taken Type HYDROcodone/APAP 10-325 [[place] 1 each PO Q6HR PRN #20 tablet 06/10/13 07/03/16 19:00 Rx 10-325 mg TAB] ISOSORBIDE MONOnitrate [Imdur ER] 30 mg PO DAILY #30 tab.er.24h 12/16/15 07/03/16 08:00 Rx Losartan [Cozaar] 25 mg PO QDAY #30 tablet 12/16/15 07/03/16 08:00 Rx Metoprolol Xl [Metoprolol 25 mg PO QDAY #30 tablet 12/16/15 07/04/16 07:30 Rx SUCCINATE ER TAB] Simvastatin [Zocor TAB] 40 mg PO QHS #30 tablet 12/16/15 06/30/16 21:00 Rx Dexlansoprazole [Dexilant] 60 mg PO QDAY #30 09/28/18 Unknown Rx Metoclopramide [Reglan] 10 mg PO TID #60 tab 09/28/18 Unknown Rx Allergies Allergy/AdvReac Type Severity Reaction Status Date / Time metformin AdvReac "SPOT ON Verified 03/30/16 09:16 LIVER" ED Review of Systems ROS: Stated complaint: N/V Other details as noted in HPI Comment: All other systems reviewed and negative Constitutional: denies: chills, fever Respiratory: denies: orthopnea, shortness of breath, SOB with exertion Gastrointestinal: abdominal pain, nausea, vomiting. denies: diarrhea, constipation, hematemesis, melena, hematochezia Musculoskeletal: denies: back pain Neurological: denies: headache, weakness, numbness, paresthesias, confusion, abnormal gait ED Past Medical Hx - Past Medical History Previous Medical History?: Yes Hx Hypertension: Yes Hx Heart Attack/AMI: Yes Hx Congestive Heart Failure: Yes (4-5 YRS) Hx Diabetes: Yes Hx GERD: Yes Hx Liver Disease: Yes (CIRRHOSIS , HEPATITIS B) Hx Renal Disease: Yes (Dialysis M,W,F) Hx Asthma: No Hx COPD: Yes Additional medical history: Anemia - Surgical History Past Surgical History?: Yes Hx Cholecystectomy: Yes Additional Surgical History: left dialysis graft, Toe amputation. FISTULA RIGHT ARM - Social History Smoking Status: Current Every Day Smoker Substance Use Type: Prescribed - Medications Home Medications: Home Medications Medication Instructions Recorded Confirmed Last Taken Type HYDROcodone/APAP 10-325 [[place] 1 each PO Q6HR PRN #20 tablet 06/10/13 07/04/16 07/03/16 19:00 Rx 10-325 mg TAB] Vit B Comp No.3/Folic/C/Biotin 1 tab PO TID 06/10/13 07/04/16 06/30/16 17:00 History [Dari-Norah Rx Tablet] Aspirin EC [Halfprin EC] 81 mg PO QDAY 12/16/15 07/04/16 07/04/16 05:00 History Calcium Acetate [Phoslo] 667 mg PO TID 12/16/15 07/04/16 06/30/16 17:00 History Calcium Carbonate [Tums Ultra 1,177 mg PO TID 12/16/15 07/04/16 07/03/16 21:00 History Strength 1177MG CHEW] Ergocalciferol [Vitamin D2] 1 cap PO QWEEK 12/16/15 07/04/16 06/28/16 09:00 History ISOSORBIDE MONOnitrate [Imdur ER] 30 mg PO DAILY #30 tab.er.24h 12/16/15 07/04/16 07/03/16 08:00 Rx Losartan [Cozaar] 25 mg PO QDAY #30 tablet 12/16/15 07/04/16 07/03/16 08:00 Rx Metoprolol Xl [Metoprolol 25 mg PO QDAY #30 tablet 12/16/15 07/04/16 07/04/16 07:30 Rx SUCCINATE ER TAB] Simvastatin [Zocor TAB] 40 mg PO QHS #30 tablet 12/16/15 07/04/16 06/30/16 21:00 Rx Dexlansoprazole [Dexilant] 60 mg PO QDAY #30 cap.dr.bp 09/28/18 Unknown Rx Metoclopramide [Reglan] 10 mg PO TID #60 tab 09/28/18 Unknown Rx ED Physical Exam - General Limitations: Physical Limitation General appearance: alert, in no apparent distress - Head Head exam: Present: atraumatic, normocephalic, normal inspection - Eye Eye exam: Present: normal appearance, PERRL - ENT ENT exam: Present: normal exam, normal orophraynx, mucous membranes moist - Neck Neck exam: Present: normal inspection, full ROM. Absent: tenderness, meningi smus, lymphadenopathy, thyromegaly - Respiratory Respiratory exam: Present: normal lung sounds bilaterally - Cardiovascular Cardiovascular Exam: Present: regular rate, normal rhythm, systolic murmur - GI/Abdominal GI/Abdominal exam: Present: soft, normal bowel sounds. Absent: distended, tenderness, guarding, rebound, rigid, organomegaly, mass, bruit, pulsatile mass, hernia - Back Exam Back exam: Present: normal inspection, full ROM. Absent: CVA tenderness (R), CVA tenderness (L) - Neurological Exam Neurological exam: Present: alert, oriented X3, CN II-XII intact - Psychiatric Psychiatric exam: Present: normal mood - Skin Skin exam: Present: warm, intact, normal color ED Course Vital Signs 11/10/18 15:55 Temperature 98.1 F Pulse Rate 57 L Respiratory 18 Rate Blood Pressure 127/49 O2 Sat by Pulse 100 Oximetry ED Medical Decision Making - Lab Data Result diagrams: 11/10/18 16:24 11/10/18 16:24 - Radiology Data Radiology results: report reviewed - Medical Decision Making Patient is 58 years old male with history of end-stage renal disease on hemodialysis. Patient presented to the ER complaining of diffuse abdominal pain, crampy in nature associated with nausea and vomiting. Patient denied any diarrhea. No hematemesis, hematochezia or melena. Patient also denied any fever or chills. Patient stated that he had his dialysis 2 days ago and some was to be dialyzed tomorrow. Patient denied any chest pain, shortness of breath or any other complaint. Labs reviewed with no acute finding. CT abd/pelvis is unremarkable. Patient stated that he feel much better. Patient advised to f/u with his pcp in the next 2-3 days and to return to the ER if symptoms not improved. Critical care attestation.: If time is entered above; I have spent that time in minutes in the direct care of this critically ill patient, excluding procedure time. ED Disposition Clinical Impression: End stage renal disease on dialysis, Abdominal pain Disposition: - TO HOME OR SELFCARE Is pt being admited?: No Condition: Stable Instructions: Chronic Kidney Disease (ED), Abdominal Pain (ED) Referrals: PRIMARY CARE, [Referring] - 3-5 Days
[2018-11-10 17:49] LABS: Albumin 4.2 g/dL (3.9-5); Calcium 8.8 mg/dL (8.4-10.2)
[2018-11-10 19:37] VITALS: BP 136/55
== END 2018-11-10 19:39 | disposition home or self-care (01) ==
LOC: ED 15:54
DX: R10.84 Generalized abdominal pain (principal); R11.2 Nausea with vomiting, unspecified; E11.22 Type 2 diabetes mellitus with diabetic chronic kidney disease; I13.2 Hypertensive heart and chronic kidney disease with heart failure and with stage 5 chronic kidney disease, or end stage renal disease; I50.9 Heart failure, unspecified; N18.6 End stage renal disease; D64.9 Anemia, unspecified; K21.9 Gastro-esophageal reflux disease without esophagitis; K74.60 Unspecified cirrhosis of liver; J44.9 Chronic obstructive pulmonary disease, unspecified; F17.200 Nicotine dependence, unspecified, uncomplicated; Z99.2 Dependence on renal dialysis; Z79.899 Other long term (current) drug therapy; Z90.49 Acquired absence of other specified parts of digestive tract; Z79.4 Long term (current) use of insulin; Z88.2 Allergy status to sulfonamides
CPT/HCPCS: 36415; 74176; 80053; 83690; 85025; 96372; 99284; J2270; J2405

== ENCOUNTER 2019-01-05 10:07 | Inpatient (IN) | payer MEDICARE ==
[2019-01-05] MEDS ORDERED: SODIUM CHLORIDE 0.9% 500 ML 500 ML IV ONE (10:47)
--- NOTE | 2019-01-05 11:19 | XRay Report ---
CHEST 1 VIEW INDICATION / CLINICAL INFORMATION: possible Sepsis. COMPARISON: 11/09/2015 chest radiograph FINDINGS: HEART / MEDIASTINUM: Normal cardiomediastinal silhouette allowing for AP technique. An LAD stent is n oted. LUNGS / PLEURA: Subtle, patchy focal airspace opacity in the left retrocardiac region. No pneumothora x. IMPRESSION: 1. New airspace opacity in the left retrocardiac region is concerning for a mild/early left lower lob e pneumonia. Signer Name: Heriberto Raines MD Signed: 01/05/2019 11:15 AM Workstation Name: [id number]
[2019-01-05] MEDS ORDERED: CEFEPIME/NS 1 GM/100 ML 1 GM/100 ML BAG IV ONE (11:22)
[2019-01-05 11:32] LABS: Hematocrit 30.7 % (35.5-45.6); Hemoglobin 10.3 gm/dl (11.8-15.2); Mean Corpuscular HGB Conc 34 % (32-34); Mean Corpuscular Volume 87 fl (84-94); Red Blood Count 3.53 M/mm3 (3.65-5.03); Red Cell Distribution Width 19.9 % (13.2-15.2)
[2019-01-05 11:33] LABS: Platelet Count 69 K/mm3 (140-440)
[2019-01-05 11:45] LABS: INR 1.17 (0.87-1.13)
[2019-01-05 11:50] LABS: Alanine Aminotransferase 47 units/L (7-56); Albumin 3.8 g/dL (3.9-5); BUN/Creatinine Ratio 3; Bilirubin,Direct 0.7 mg/dL (0-0.2); Blood Urea Nitrogen 32 mg/dL (9-20); Calcium 7.9 mg/dL (8.4-10.2); Hemolysis Index 22
[2019-01-05 11:57] LABS: Creatine Kinase MB < 1.0 ng/mL (0.0-4.0)
[2019-01-05] MEDS ORDERED: VANCOMYCIN PHARMACY TO DOSE IV SCH (12:00)
[2019-01-05 12:07] LABS: Partial Thromboplastin Time 36.8 Sec. (24.2-36.6)
--- NOTE | 2019-01-05 12:08 | Cat Scan Report ---
CT HEAD WITHOUT CONTRAST INDICATION / CLINICAL INFORMATION: L hemiparesis. TECHNIQUE: All CT scans at this location are performed using CT dose reduction for ALARA by means of automated e xposure control. COMPARISON: Head CT with contrast 05/21/2018 FINDINGS: HEMORRHAGE: No evidence of intracranial hemorrhage or extra-axial fluid collection. EXTRA-AXIAL SPACES: Cortical sulci, sylvian fissures and basilar cisterns have an unremarkable appear ance. VENTRICULAR SYSTEM: The ventricular system is of normal size and configuration. CEREBRAL PARENCHYMA: Extensive periventricular and deep white matter lucencies noted consistent with advanced microvascular ischemic change, greater than expected for the patient's age of 58 years. MIDLINE SHIFT OR HERNIATION: There is no mass effect. CEREBELLUM / BRAINSTEM: Brainstem and cerebellum have an unremarkable appearance. INTRACRANIAL VESSELS: Extensively calcified atherosclerotic plaque is observed along the course of th e cavernous and supraclinoid segments of both internal carotid arteries. Similar findings are seen at the distal vertebral arteries. ORBITS: The orbits have an unremarkable appearance. SOFT TISSUES of HEAD: No significant abnormality. CALVARIUM: Evaluation of bone windows reveals no abnormalities. PARANASAL SINUSES / MASTOID AIR CELLS: Paranasal sinuses are free from inflammatory mucosal disease. Mastoid air cells are normally pneumatized. ADDITIONAL FINDINGS: Incidental note is made of extensive calcification of the falx. IMPRESSION: 1. Moderate microvascular ischemic changes in both cerebral hemispheres. 2. No acute intracranial abnormalities are identified on head CT without contrast. Signer Name: Jeremy Meredith MD Signed: 01/05/2019 12:04 PM Workstation Name: [id number]
[2019-01-05] MEDS ORDERED: SODIUM CHLORIDE 0.9% 1000 ML 1,000 ML ONE (12:23)
[2019-01-05] MEDS ORDERED: VANCOMYCIN 1,500 MG in SODIUM CHLORIDE 0.9% 500 ML 500 ML IV ONE (12:30)
[2019-01-05 12:32] LABS: Chol/HDL Ratio 3.61 %; HDL Cholesterol 34 mg/dL (40-59); LDL Cholesterol,Direct 69 mg/dL (50-130)
--- NOTE | 2019-01-05 12:51 | Emergency Department Report ---
ED Neuro Deficit HPI - General Chief Complaint: Weakness Stated Complaint: L ARM WEAKNESS/NUMBNESS Time Seen by Provider: 01/05/19 10:46 Source: family, EMS Mode of arrival: Wheelchair Limitations: No Limitations - History of Present Illness Initial Comments: 58 year old male is accompanied by a lady who maybe his or significant other. She states that he was able to walk last night. She found him sitting in a chair at about 8:00 in the morning which was the first time he was seen. His speech was slurred. He was unable to time the onset of his symptoms. She suspected that his left arm was weak as well. She was unaware of his fever. He arrived with a temperature of 103. The patient states that they had been to dialysis last week. They were told that the patient's blood pressure was running low. However he did receive a complete dialysis run last Sunday. There is no known history of prior left- sided deficit in the last records that I reviewed. However the lady that is here mentions that the patient has had some difficulty walking and perhaps some difficulty with his left side before. Not withstanding, he seems to be acutely weak since yesterday on his left side. -: During the night Location: speech, left face, left arm, left leg Presenting Symptoms: Present: Weak/Paralyzed One Side History of same: No (not entirely certain) Place: home Severity: moderate Quality: weak Improves With: none Worsens With: none On Anticoagulants: No - Related Data Home Medications: Home Medications Medication Instructions Recorded Confirmed Last Taken Vit B Comp No.3/Folic/C/Biotin 1 tab PO TID 06/10/13 07/04/16 06/30/16 17:00 [Dari-Norah Rx Tablet] Aspirin EC [Halfprin EC] 81 mg PO QDAY 12/16/15 07/04/16 07/04/16 05:00 Calcium Acetate [Phoslo] 667 mg PO TID 12/16/15 07/04/16 06/30/16 17:00 Calcium Carbonate [Tums Ultra 1,177 mg PO TID 12/16/15 07/04/16 07/03/16 21:00 Strength 1177MG CHEW] Ergocalciferol [Vitamin D2] 1 cap PO QWEEK 12/16/15 07/04/16 06/28/16 09:00 Previous Rx's Medication Instructions Recorded Last Taken Type HYDROcodone/APAP 10-325 [[place] 1 each PO Q6HR PRN #20 tablet 06/10/13 07/03/16 19:00 Rx 10-325 mg TAB] ISOSORBIDE MONOnitrate [Imdur ER] 30 mg PO DAILY #30 tab.er.24h 12/16/15 07/03/16 08:00 Rx Losartan [Cozaar] 25 mg PO QDAY #30 tablet 12/16/15 07/03/16 08:00 Rx Metoprolol Xl [Metoprolol 25 mg PO QDAY #30 tablet 12/16/15 07/04/16 07:30 Rx SUCCINATE ER TAB] Simvastatin [Zocor TAB] 40 mg PO QHS #30 tablet 12/16/15 06/30/16 21:00 Rx Dexlansoprazole [Dexilant] 60 mg PO QDAY #30 cap. 09/28/18 Unknown Rx Metoclopramide [Reglan] 10 mg PO TID #60 tab 09/28/18 Unknown Rx Ondansetron [Zofran Odt] 4 mg PO Q8HR PRN #14 tab.rapdis 11/10/18 Unknown Rx traMADoL [Ultram] 50 mg PO Q6HR PRN #14 tablet 11/10/18 Unknown Rx Allergies/Adverse Reactions: Allergies Allergy/AdvReac Type Severity Reaction Status Date / Time metformin AdvReac "SPOT ON Verified 03/30/16 09:16 LIVER" ED Review of Systems ROS: Stated complaint: L ARM WEAKNESS/NUMBNESS Other details as noted in HPI Comment: Unobtainable due to pts medical conditions ED Past Medical Hx - Past Medical History Previous Medical History?: Yes Hx Hypertension: Yes Hx Heart Attack/AMI: Yes Hx Congestive Heart Failure: Yes (4-5 YRS) Hx Diabetes: Yes Hx GERD: Yes Hx Liver Disease: Yes (CIRRHOSIS , HEPATITIS B) Hx Renal Disease: Yes (Dialysis M,W,F) Hx Asthma: No Hx COPD: Yes Additional medical history: Anemia, Stents X 6 approx 3 monts (10/2018) - Surgical History Hx Cholecystectomy: Yes Additional Surgical History: left dialysis graft, Toe amputation. FISTULA RIGHT ARM - Social History Smoking Status: Current Every Day Smoker Substance Use Type: None - Medications Home Medications: Home Medications Medication Instructions Recorded Confirmed Last Taken Type HYDROcodone/APAP 10-325 [[place] 1 each PO Q6HR PRN #20 tablet 06/10/13 07/04/16 07/03/16 19:00 Rx 10-325 mg TAB] Vit B Comp No.3/Folic/C/Biotin 1 tab PO TID 06/10/13 07/04/16 06/30/16 17:00 History [Dari-Norah Rx Tablet] Aspirin EC [Halfprin EC] 81 mg PO QDAY 12/16/15 07/04/16 07/04/16 05:00 History Calcium Acetate [Phoslo] 667 mg PO TID 12/16/15 07/04/16 06/30/16 17:00 History Calcium Carbonate [Tums Ultra 1,177 mg PO TID 12/16/15 07/04/16 07/03/16 21:00 History Strength 1177MG CHEW] Ergocalciferol [Vitamin D2] 1 cap PO QWEEK 12/16/15 07/04/16 06/28/16 09:00 History ISOSORBIDE MONOnitrate [Imdur ER] 30 mg PO DAILY #30 tab.er.24h 12/16/15 07/04/16 07/03/16 08:00 Rx Losartan [Cozaar] 25 mg PO QDAY #30 tablet 12/16/15 07/04/16 07/03/16 08:00 Rx Metoprolol Xl [Metoprolol 25 mg PO QDAY #30 tablet 12/16/15 07/04/16 07/04/16 07:30 Rx SUCCINATE ER TAB] Simvastatin [Zocor TAB] 40 mg PO QHS #30 tablet 12/16/15 07/04/16 06/30/16 21:00 Rx Dexlansoprazole [Dexilant] 60 mg PO QDAY #30 cap.dr.bp 09/28/18 Unknown Rx Metoclopramide [Reglan] 10 mg PO TID #60 tab 09/28/18 Unknown Rx Ondansetron [Zofran Odt] 4 mg PO Q8HR PRN #14 tab.rapdis 11/10/18 Unknown Rx traMADoL [Ultram] 50 mg PO Q6HR PRN #14 tablet 11/10/18 Unknown Rx ED Neuro Physical Exam - General Limitations: Altered Mental Status (apparent subacute stroke) General appearance: alert, in no apparent distress Suspected Stroke: Yes - Head Head exam: Present: atraumatic, normocephalic - Eye Eye exam: Present: normal appearance. Absent: scleral icterus - ENT ENT exam: Present: mucous membranes moist, other (partial facial paresis) - Neck Neck exam: Present: normal inspection. Absent: tenderness, meningismus - Respiratory Respiratory exam: Present: normal lung sounds bilaterally. Absent: respiratory distress - Cardiovascular Cardiovascular Exam: Present: regular rate, normal rhythm. Absent: systolic murmur, diastolic murmur, rubs, gallop - GI/Abdominal GI/Abdominal exam: Present: soft, normal bowel sounds. Absent: distended, tenderness, guarding, rebound - Rectal Rectal exam: Present: deferred - Extremities Exam Extremities exam: Present: normal inspection - Back Exam Back exam: Present: normal inspection - Neurological Exam Neurological exam: Present: altered (aphasic), motor sensory deficit. Absent: CN II-XII intact - NIHSS Assessment Interval: Baseline 1a. Level of Consciousness: arousable/minor stimuli 1b. LOC Questions: answers 1 question correctly 1c. LOC Commands: performs tasks correctly 2. Best Gaze: normal 3. Visual: no visual loss (difficult to determine) 4. Facial Palsy: minor paralysis 5b. Motor Arm Right: no drift 5a. Motor Arm Left: some gravity effort 6a. Motor Leg Left: drift 6b. Motor Leg Right: no drift 7. Limb Ataxia: absent 8. Sensory: normal 9. Best Language: mild/moderate aphasia 10. Dysarthria: mild/moderate dysarthria 11. Extinction/Inattention: no abnormality Total Score: 8 Stroke Severity: Moderate Stroke - Psychiatric Psychiatric exam: Present: normal mood, flat affect - Skin Skin exam: Present: warm, dry, intact, normal color. Absent: rash ED Course Vital Signs 01/05/19 01/05/19 01/05/19 10:29 11:01 11:15 Temperature 103.2 F H Pulse Rate 88 80 Respiratory 20 24 Rate Blood Pressure 108/51 105/35 114/72 O2 Sat by Pulse 97 97 Oximetry - Reevaluation(s) Reevaluation #1: The patient was treated with empiric antibiotic's. He is noted to have a platelet count of 69,000. I am going to defer that decision to give aspirin to Dr. Richey considering this substantial thrombocytopenia which is chronic. The patient was given empiric antibiotics for presumed serious bacterial infection. However his lactic acid level 1.7. 01/05/19 13:00 Rapid a for thrombolytics due to the onset of his symptoms being sometime during the night. - Lab Data Result diagrams: 01/05/19 11:18 01/05/19 11:18 Lab Results 01/05/19 01/05/19 01/05/19 Range/Units 11:18 11:18 11:18 WBC 8.6 (4.5-11.0) K/mm3 RBC 3.53 L (3.65-5.03) M/mm3 Hgb 10.3 L (11.8-15.2) gm/dl Hct 30.7 L (35.5-45.6) % MCV 87 (84-94) fl MCH 29 (28-32) pg MCHC 34 (32-34) % RDW 19.9 H (13.2-15.2) % Plt Count 69 L (140-440) K/mm3 PT 14.8 (12.2-14.9) Sec. INR 1.17 H (0.87-1.13) APTT 36.8 H (24.2-36.6) Sec. VBG pH (7.320-7.420) Sodium (137-145) mmol/L Potassium (3.6-5.0) mmol/L Chloride (98-107) mmol/L Carbon Dioxide (22-30) mmol/L Anion Gap mmol/L BUN (9-20) mg/dL Creatinine (0.8-1.5) mg/dL Estimated GFR ml/min BUN/Creatinine Ratio % Glucose (75-100) mg/dL POC Glucose (70-105) Lactic Acid 1.70 (0.7-2.0) mmol/L Calcium (8.4-10.2) mg/dL Magnesium (1.7-2.3) mg/dL Total Bilirubin (0.1-1.2) mg/dL Direct Bilirubin (0-0.2) mg/dL Indirect Bilirubin mg/dL AST (5-40) units/L ALT (7-56) units/L Alkaline Phosphatase (35-129) units/L Total Creatine Kinase (55-170) units/L CK-MB (CK-2) (0.0-4.0) ng/mL CK-MB (CK-2) Rel Index (0-4) Troponin T (0.00-0.029) ng/mL Total Protein (6.3-8.2) g/dL Albumin (3.9-5) g/dL Albumin/Globulin Ratio % Triglycerides (2-149) mg/dL Cholesterol (50-199) mg/dL LDL Cholesterol Direct (50-130) mg/dL HDL Cholesterol (40-59) mg/dL Cholesterol/HDL Ratio % 01/05/19 01/05/19 01/05/19 Range/Units 11:18 11:18 12:02 WBC (4.5-11.0) K/mm3 RBC (3.65-5.03) M/mm3 Hgb (11.8-15.2) gm/dl Hct (35.5-45.6) % MCV (84-94) fl MCH (28-32) pg MCHC (32-34) % RDW (13.2-15.2) % Plt Count (140-440) K/mm3 PT (12.2-14.9) Sec. INR (0.87-1.13) APTT (24.2-36.6) Sec. VBG pH 7.497 H (7.320-7.420) Sodium 132 L (137-145) mmol/L Potassium 3.3 L (3.6-5.0) mmol/L Chloride 92.6 L (98-107) mmol/L Carbon Dioxide 19 L (22-30) mmol/L Anion Gap 24 mmol/L BUN 32 H (9-20) mg/dL Creatinine 9.6 H (0.8-1.5) mg/dL Estimated GFR 7 ml/min BUN/Creatinine Ratio 3 % Glucose 88 (75-100) mg/dL POC Glucose 93 (70-105) Lactic Acid (0.7-2.0) mmol/L Calcium 7.9 L (8.4-10.2) mg/dL Magnesium 1.80 (1.7-2.3) mg/dL Total Bilirubin 1.60 H (0.1-1.2) mg/dL Direct Bilirubin 0.7 H (0-0.2) mg/dL Indirect Bilirubin 0.9 mg/dL AST 36 (5-40) units/L ALT 47 (7-56) units/L Alkaline Phosphatase 93 (35-129) units/L Total Creatine Kinase 157 (55-170) units/L CK-MB (CK-2) < 1.0 (0.0-4.0) ng/mL CK-MB (CK-2) Rel Index 0.6 (0-4) Troponin T 0.380 H* (0.00-0.029) ng/mL Total Protein 8.5 H (6.3-8.2) g/dL Albumin 3.8 L (3.9-5) g/dL Albumin/Globulin Ratio 0.8 % Triglycerides 108 (2-149) mg/dL Cholesterol 123 (50-199) mg/dL LDL Cholesterol Direct 69 (50-130) mg/dL HDL Cholesterol 34 L (40-59) mg/dL Cholesterol/HDL Ratio 3.61 % - EKG Data -: EKG Interpreted by Me EKG shows normal: sinus rhythm Rate: normal Interpretation: other (somewhat diffuse ST depressions intraventricular conduction delay degree AV block) - Radiology Data Radiology results: image reviewed CT the head no acute findings - Thrombolytic Inclusion/Exclusion Thrombolytic Exclusion Criteria: Symptom Onset > 3 Hours Critical Care Time: Yes Critical care time in (mins) excluding proc time.: 45 Critical care attestation.: If time is entered above; I have spent that time in minutes in the direct care of this critically ill patient, excluding procedure time. ED Disposition Clinical Impression: Febrile illness, acute, End stage renal failure on dialysis, Abnormal EKG, Hypokalemia CVA (cerebral vascular accident) Qualifiers: CVA mechanism: unspecified Qualified Code(s): I63.9 - Cerebral infarction, unspecified Disposition: OP ADMIT IP TO THIS HOSP Is pt being admited?: Yes Does the pt Need Aspirin: Yes (deferred to hospitalist) Condition: Stable Referrals: PRIMARY CARE, [Primary Care Provider] - 3-5 Days Time of Disposition: 13:06
[2019-01-05] MEDS ORDERED: POTASSIUM CHLORIDE ER 20 MEQ TAB PO ONE ×2 (13:02→16:46)
[2019-01-05 14:13] LABS: Anisocytosis 1+; Basophils % (Manual) 0 % (0.0-1.8); Eosinophils % (Manual) 0 % (0.0-4.3); Giant Platelets Rare; Platelet Estimate Consistent w Auto; Total Cells Counted 100
[2019-01-05] MEDS ORDERED: ACETAMINOPHEN 325 MG/10.15 ML ORAL LIQD UNIT DOSE ONE (16:45)
[2019-01-05] MEDS ORDERED: ACETAMINOPHEN 325 MG TAB PO ONE (17:29)
[2019-01-05] MEDS ORDERED: traMADol 50 MG TAB PO PRN (21:53)
[2019-01-05] MEDS ORDERED: HYDROcodone/ACETAMINOPHEN 10-325MG TAB PO PRN (21:53)
[2019-01-05] MEDS ORDERED: HYDROmorphone 1 MG/1 ML INJ IV PRN (21:55)
[2019-01-05] MEDS ORDERED: ONDANSETRON 4 MG/2 ML INJ IV PRN (21:55)
[2019-01-05] MEDS ORDERED: NON-FORMULARY EACH (Simvastatin 40 MG) PO SCH (22:00)
[2019-01-05] MEDS: ASPIRIN EC 81 MG TAB PO SCH (23:25)
[2019-01-05] MEDS: PRAVASTATIN 80 MG TAB PO SCH (23:25)
[2019-01-05] MEDS: FAMOTIDINE 10 MG TAB PO SCH (23:25)
[2019-01-06] MEDS: ONDANSETRON 4 MG ODT TAB PO PRN (02:09)
[2019-01-06] MEDS: ACETAMINOPHEN 325 MG TAB PO PRN ×2 (02:09→17:00)
--- NOTE | 2019-01-06 07:23 | Event Note ---
Date: 01/05/19 See H/p in reports Acute CVA with L Hemiparesis
[2019-01-06] MEDS ORDERED: METOCLOPRAMIDE 10 MG TAB PO SCH (08:00)
[2019-01-06] MEDS ORDERED: NON-FORMULARY EACH (Vit B Comp No.3/Folic/C/Biotin [Rena-Vite Rx Tablet] 1 TAB) PO SCH (08:00)
--- NOTE | 2019-01-06 08:02 | History and Physical Report ---
CHIEF COMPLAINT: Slurred speech and left arm weakness since morning. HISTORY OF PRESENT ILLNESS: A 58-year-old male accompanied by his fiancee, comes in for slurred speech and left upper extremity weakness since morning around 8:00 a.m. As per the fiancee, the patient had slurred speech and left upper arm weakness. No fever. In the ER, the patient had a temperature of 103. The patient's past medical history is significant for hypotension and end-stage renal disease, on dialysis. He received complete dialysis on 01/03/2019. The patient had a left-sided weakness before. As per fiancee, the left-sided weakness is more now and slurred speech is new. PAST MEDICAL HISTORY: Significant for hypertension, coronary artery disease, hyperlipidemia, and GERD. PAST SURGICAL HISTORY: Cholecystectomy, left arm dialysis graft, toe amputation, also fistula in the right thumb. SOCIAL HISTORY: Smokes over a pack a day. FAMILY HISTORY: Hypertension. CURRENT MEDICATIONS: On the chart. REVIEW OF SYSTEMS: Significant for slurred speech and left upper extremity weakness. PHYSICAL EXAMINATION: GENERAL: Elderly male. Poor x-ray historian, looks older than his age. VITAL SIGNS: Blood pressure is 109/38, temperature is 98.9 and 100.3, initial temperature was 103.2. HEENT: Unremarkable. Pupils equal and reactive. No left facial weakness. NECK: Supple, no lymphadenopathy, no thyromegaly. LUNGS: Clear to auscultation and percussion. Good air entry. CARDIOVASCULAR: S1, S2 heard. No gallop, no murmur, no rub. Apical impulse in left fifth intercostal space and midclavicular line. ABDOMEN: Soft and benign. No hepatosplenomegaly. No guarding, no rigidity. Hernial orifices are normal. EXTREMITIES: Good pedal pulses. CENTRAL NERVOUS SYSTEM: Alert and oriented x 3. Left upper extremity weakness present, 3/5 power. Left lower extremity, 4/5 power. Reflexes were brisk on the left side. LABORATORY DATA: Labs are significant for white count of 8600, H and H of 10.3 and 30.7, platelet count of 69,000. Sodium is 132, potassium is 3.3, BUN and creatinine is 32 and 9.6, calcium is 7.9, magnesium is 1.8. Troponin is 0.380. HDL cholesterol is 34. Chest x-ray, new airspace density in the left concerning for left lower lobe pneumonia. Head CT, no acute pneumonia, no acute findings. Moderate microvascular ischemic changes. ASSESSMENT AND PLAN: 1. Left lower lobe pneumonia. IV antibiotics for now. 2. Acute cerebrovascular accident to be ruled out. The patient to get MRI and Neurology consult. Also, echocardiogram, and carotid duplex scan. Stroke protocol initiated. 3. Hypertension. Continue losartan and metoprolol. 4. Gastroesophageal reflux disease. Continue Dexilant. 5. End-stage renal disease. Continue dialysis. 6. Coronary artery disease. Continue isosorbide. 7. Deep venous thrombosis prophylaxis. The patient's platelet count is low. Heparin was not initiated. 8. Gastrointestinal prophylaxis. The patient is already on PPIs. In summary, the patient has left lower lobe pneumonia, possible acute cerebrovascular accident, hypertension and end-stage renal disease, on dialysis. JOB# [id number] THIAGO/BEAU GARCIA
[2019-01-06] MEDS: CALCIUM ACETATE 667 MG CAP PO SCH ×3 (08:52→18:42)
[2019-01-06] MEDS: METOCLOPRAMIDE 10 MG TAB PO SCH ×3 (08:53→17:00)
[2019-01-06 09:42] LABS: Basophils # (Auto) 0.1 K/mm3 (0.0-0.1); Basophils % (Auto) 0.5 % (0.0-1.8); Eosinophils % (Auto) 0.2 % (0.0-4.3); Hematocrit 32.9 % (35.5-45.6); Hemoglobin 10.9 gm/dl (11.8-15.2); Lymphocytes # (Auto) 0.9 K/mm3 (1.2-5.4); Lymphocytes % (Auto) 8.6 % (13.4-35.0); Mean Corpuscular HGB Conc 33 % (32-34); Mean Corpuscular Volume 88 fl (84-94); Monocytes # (Auto) 1.4 K/mm3 (0.0-0.8); Monocytes % (Auto) 13.1 % (0.0-7.3); Red Blood Count 3.76 M/mm3 (3.65-5.03)
[2019-01-06 09:44] LABS: Platelet Count 68 K/mm3 (140-440); Red Cell Distribution Width 20.2 % (13.2-15.2)
[2019-01-06 10:00] LABS: Albumin 3.5 g/dL (3.9-5); Calcium 8.3 mg/dL (8.4-10.2)
[2019-01-06] MEDS: FAMOTIDINE 10 MG TAB PO SCH (10:10)
[2019-01-06] MEDS: FOLIC ACID/VIT B COMP W-C 1 MG (RENAL CAPS) PO SCH (10:10)
[2019-01-06] MEDS: ASPIRIN EC 81 MG TAB PO SCH (10:10)
[2019-01-06] MEDS: METOPROLOL SUCCINATE XL 25 MG TAB PO SCH (10:11)
[2019-01-06] MEDS: LOSARTAN 25 MG TAB PO SCH (10:12)
--- NOTE | 2019-01-06 10:53 | Consultation ---
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 He also reports slurred speech. He denies any fever, chills, N, V, D, CORONADO, dizziness, cp, sob, leg swelling, diplopia or syncope. His initial temperature was 103.2 F. He was last dialyzed on 01/03. His symptoms have resolved now. CXR showed early PNA. Pt was admitted for treatment of CVA / TIA, PNA and ESRD. Nephrology was consulted for further evaluation. Past History Past Medical History: anemia, diabetes, dialysis, ESRD, hypertension, other (Smoking, PAD) Medications and Allergies Allergies Allergy/AdvReac Type Severity Reaction Status Date / Time metformin AdvReac "SPOT ON Verified 03/30/16 09:16 LIVER" Home Medications Medication Instructions Recorded Confirmed Last Taken Type HYDROcodone/APAP 10-325 [[place] 1 each PO Q6HR PRN #20 tablet 06/10/13 07/04/16 07/03/16 19:00 Rx 10-325 mg TAB] Vit B Comp No.3/Folic/C/Biotin 1 tab PO TID 06/10/13 07/04/16 06/30/16 17:00 History [Dari-Norah Rx Tablet] Aspirin EC [Halfprin EC] 81 mg PO QDAY 12/16/15 07/04/16 07/04/16 05:00 History Calcium Acetate [Phoslo] 667 mg PO TID 12/16/15 07/04/16 06/30/16 17:00 History Calcium Carbonate [Tums Ultra 1,177 mg PO TID 12/16/15 07/04/16 07/03/16 21:00 History Strength 1177MG CHEW] Ergocalciferol [Vitamin D2] 1 cap PO QWEEK 12/16/15 07/04/16 06/28/16 09:00 History ISOSORBIDE MONOnitrate [Imdur ER] 30 mg PO DAILY #30 tab.er.24h 12/16/15 0 07/04/16 07/03/16 08:00 Rx Losartan [Cozaar] 25 mg PO QDAY #30 tablet 12/16/15 07/04/16 07/03/16 08:00 Rx Metoprolol Xl [Metoprolol 25 mg PO QDAY #30 tablet 12/16/15 07/04/16 07/04/16 07:30 Rx SUCCINATE ER TAB] Simvastatin [Zocor TAB] 40 mg PO QHS #30 tablet 12/16/15 07/04/16 06/30/16 21:00 Rx Dexlansoprazole [Dexilant] 60 mg PO QDAY #30 cap.bp 09/28/18 Unknown Rx Metoclopramide [Reglan] 10 mg PO TID #60 tab 09/28/18 Unknown Rx Ondansetron [Zofran Odt] 4 mg PO Q8HR PRN #14 tab.rapdis 11/10/18 Unknown Rx traMADoL [Ultram] 50 mg PO Q6HR PRN #14 tablet 11/10/18 Unknown Rx Active Meds: Active Medications Acetaminophen (Tylenol) 650 mg PO Q4H PRN PRN Reason: Pain MILD(1-3)/Fever >100.5/CORONADO Last Admin: 01/06/19 02:09 Dose: 650 mg Documented by: Acetaminophen/Hydrocodone Bitart ([place] 10/325) 1 each PO Q6HR PRN PRN Reason: Pain, Moderate (4-6) Aspirin (Halfprin Ec) 81 mg PO QDAY [facility] Last Admin: 01/06/19 10:10 Dose: 81 mg Documented by: Calcium Acetate (Phoslo) 667 mg PO TIDWM [facility] Last Admin: 01/06/19 08:52 Dose: 667 mg Documented by: Famotidine (Pepcid) 10 mg PO BID [facility] Last Admin: 01/06/19 10:10 Dose: 10 mg Documented by: Hydromorphone HCl (Dilaudid) 0.5 mg IV Q3H PRN PRN Reason: Pain , Severe (7-10) Azithromycin 500 mg/ Sodium (Chloride) 250 mls @ 250 mls/hr IV Q24HR [facility]; Protocol Isosorbide Mononitrate (Imdur) 30 mg PO DAILY [facility] Last Admin: 01/06/19 10:10 Dose: 30 mg Documented by: Losartan Potassium (Cozaar) 25 mg PO QDAY [facility] Last Admin: 01/06/19 10:12 Dose: 25 mg Documented by: Metoclopramide HCl (Reglan) 5 mg PO TIDAC [facility] Last Admin: 01/06/19 08:53 Dose: 5 mg Documented by: Metoprolol Succinate (Metoprolol Xl) 25 mg PO QDAY [facility] Last Admin: 01/06/19 10:11 Dose: 25 mg Documented by: Multivit/Ca Carb/B Cmplx/FA/Prenat (Renal Caps) 1 cap PO QDAY [facility] Last Admin: 01/06/19 10:10 Dose: 1 cap Documented by: Ondansetron HCl (Zofran Odt) 4 mg PO Q8HR PRN PRN Reason: Nausea And Vomiting Last Admin: 01/06/19 02:09 Dose: 4 mg Documented by: Ondansetron HCl (Zofran) 4 mg IV Q8H PRN PRN Reason: Nausea And Vomiting Pravastatin Sodium (Pravachol) 80 mg PO QHS [facility] Last Admin: 01/05/19 23:25 Dose: 80 mg Documented by: Sodium Chloride (Sodium Chloride Flush Syringe 10 Ml) 10 ml IV BID [facility] Last Admin: 01/06/19 10:12 Dose: 10 ml Documented by: Sodium Chloride (Sodium Chloride Flush Syringe 10 Ml) 10 ml IV PRN PRN PRN Reason: LINE FLUSH Tramadol HCl (Ultram) 50 mg PO Q6HR PRN PRN Reason: Pain, Moderate (4-6) Review of Systems Constitutional: weight gain, anorexia, fatigue, chronic pain, no weight loss, no fever, no chills Cardiovascular: high blood pressure, no chest pain, no orthopnea, no edema, no syncope, no lightheadedness, no shortness of breath, no leg edema Respiratory: no cough, no hemoptysis, no shortness of breath, no dyspnea on exertion Gastrointestinal: abdominal pain (on eating), no nausea (on eating, has an appt to see GI), no vomiting, no diarrhea, no melena, no jaundice Genitourinary Male: no dysuria, no hematuria Rectal: no bleeding Musculoskeletal: no muscle weakness Integumentary: no redness, no sores Neurological: transient paralysis, weakness, tingling, aphasia, change in speec h, gait dysfunction, no seizures, no syncope, no convulsions, no change in mentation, no confusion, no memory loss, no double vision, no loss of vision Exam - Vital Signs Vital signs: Vital Signs Temp Pulse Resp BP 103.2 F H 88 20 108/51 01/05/19 10:29 01/05/19 10:29 01/05/19 10:29 01/05/19 10:29 - General Appearance General appearance: well-developed, appears stated age, other (not in distress) EENT: ATNC, PERRL, hearing intact, vision intact Neck: Present: neck supple, trachea midline Respiratory: Clear to Ascultation Heart: regular, S1S2, no murmurs Gastrointestinal: Present: normoactive bowel sounds. Absent: tenderness, distended Integumentary: no rash, warm and dry Neurologic: no focal deficit, no asterixis, alert and oriented x3 Musculoskeletal: Present: other (no edema, R arm AVF, b/l TMA) Psychiatric: cooperative Results - Lab Results 01/06/19 08:30 01/06/19 08:30 Most recent lab results Calcium 8.3 mg/dL (8.4-10.2) L 01/06/19 08:30 Magnesium 1.80 mg/dL (1.7-2.3) 01/05/19 11:18 Assessment and Plan 1. ESRD: Continue hemodialysis three times a week, MWF schedule. Hemodialysis: 01/06. 2. FEN: Metabolic acidosis, HD today. Renal diet. Monitor. 3. Suspected acute CVA. 4. Pneumonia: Continue Abx. 5. DM type 2. 6. HTN. 7. Anemia: POA. Monitor. Epogen if needed. 8. Thrombocytopenia: POA, chronic. 9. PAD.
[2019-01-06] MEDS ORDERED: SODIUM CHLORIDE 0.9% 100 ML IV PRN (10:55)
[2019-01-06] MEDS: AZITHROMYCIN 500 MG in SODIUM CHLORIDE 0.9% 250ML 250 ML IV SCH (11:00)
--- NOTE | 2019-01-06 11:41 | Vascular Lab Report ---
"DUPLEX DOPPLER ULTRASOUND CAROTID, BILATERAL INDICATION: stroke. FINDINGS: RIGHT CAROTID: Mild plaque Right CCA velocity: 69 cm/sec. Right ICA peak systolic velocity: 70 cm/sec. ICA/CCA PSV Ratio: 1. Right Vertebral Artery: Antegrade flow. LEFT CAROTID: Mild plaque Left CCA velocity: 68 cm/sec. Left ICA peak systolic velocity: 90 cm/sec. ICA/CCA PSV Ratio: 1.3. Left Vertebral Artery: Antegrade flow. IMPRESSION: 1. Right Internal Carotid Artery: Less than 50% diameter stenosis. 2. Left Internal Carotid Artery: Less than 50% diameter stenosis. Velocity criteria are extrapolated from diameter data as defined by the Society of Radiologists in Ul trasound Consensus Conference, Radiology 2003; 229;340-346. Degree of Stenosis (%) || ICA PSV (cm/sec) || Plaque estimate (%) || ICA/CCA PSV Ratio Normal <125 None <2.0 <50 <125 <50 <2.0 50-69 125-230 50 2.0-4.0 70 but less than 100 >230 50 >4.0 Near occlusion High, low, or none visible variable Total occlusion None visible; no lumen N/A Signer Name: Dain Carl MD Signed: 01/06/2019 11:37 AM Workstation Name: [id number]
--- NOTE | 2019-01-06 12:03 | Consultation ---
History of Present Illness Consult date: 01/06/19 Reason for Consult: Stroke Chief complaint: Slurred speech, left sided weakness History of present illness: Patient is a 58 y/o man w/ a h/o hypertension, coronary artery disease, hyperlipidemia, GERD, end-stage renal disease on hemodialysis, HBV. Yesterday morning at approximately 8 AM, the patient awoke and was noted to have symptoms of slurred speech and left-sided weakness. His last known well was when he went to sleep the night before, on Sunday night. Patient was brought to [facility] for further evaluation. His left-sided weakness has resolved, however he continues to have mild slurred speech, and his partner states that it does not look like it is returned back to baseline yet. Patient notes that he is not compliant with medications at home. Patient was also noted to be febrile on admission, and was found to have a pneumonia. Past History Past Medical History: anemia, diabetes, dialysis, ESRD, hypertension, other (Smoking, PAD) Social history: smoking Family history: hypertension Medications and Allergies Allergies Allergy/AdvReac Type Severity Reaction Status Date / Time metformin AdvReac "SPOT ON Verified 03/30/16 09:16 LIVER" Home Medications Medication Instructions Recorded Confirmed Last Taken Type HYDROcodone/APAP 10-325 [Marvell 1 each PO Q6HR PRN #20 tablet 06/10/13 07/04/16 07/03/16 19:00 Rx 10-325 mg TAB] Vit B Comp No.3/Folic/C/Biotin 1 tab PO TID 06/10/13 07/04/16 06/30/16 17:00 History [Dari-Norah Rx Tablet] Aspirin EC [Halfprin EC] 81 mg PO QDAY 12/16/15 07/04/16 07/04/16 05:00 History Calcium Acetate [Phoslo] 667 mg PO TID 12/16/15 07/04/16 06/30/16 17:00 History Calcium Carbonate [Tums Ultra 1,177 mg PO TID 12/16/15 07/04/16 07/03/16 21:00 History Strength 1177MG CHEW] Ergocalciferol [Vitamin D2] 1 cap PO QWEEK 12/16/15 07/04/16 06/28/16 09:00 History ISOSORBIDE MONOnitrate [Imdur ER] 30 mg PO DAILY #30 tab.er.24h 12/16/15 07/04/16 07/03/16 08:00 Rx Losartan [Cozaar] 25 mg PO QDAY #30 tablet 12/16/15 07/04/16 07/03/16 08:00 Rx Metoprolol Xl [Metoprolol 25 mg PO QDAY #30 tablet 12/16/15 07/04/16 07/04/16 07:30 Rx SUCCINATE ER TAB] Simvastatin [Zocor TAB] 40 mg PO QHS #30 tablet 12/16/15 07/04/16 06/30/16 21:00 Rx Dexlansoprazole [Dexilant] 60 mg PO QDAY #30 cap.drEvelynbp 09/28/18 Unknown Rx Metoclopramide [Reglan] 10 mg PO TID #60 tab 09/28/18 Unknown Rx Ondansetron [Zofran Odt] 4 mg PO Q8HR PRN #14 tab.rapdis 11/10/18 Unknown Rx traMADoL [Ultram] 50 mg PO Q6HR PRN #14 tablet 11/10/18 Unknown Rx Active Meds: Active Medications Acetaminophen (Tylenol) 650 mg PO Q4H PRN PRN Reason: Pain MILD(1-3)/Fever >100.5/CORONADO Last Admin: 01/06/19 02:09 Dose: 650 mg Documented by: Acetaminophen/Hydrocodone Bitart ([place]vell 10/325) 1 each PO Q6HR PRN PRN Reason: Pain, Moderate (4-6) Aspirin (Halfprin Ec) 81 mg PO QDAY [facility] Last Admin: 01/06/19 10:10 Dose: 81 mg Documented by: Calcium Acetate (Phoslo) 667 mg PO TIDWM [facility] Last Admin: 01/06/19 08:52 Dose: 667 mg Documented by: Famotidine (Pepcid) 10 mg PO BID [facility] Last Admin: 01/06/19 10:10 Dose: 10 mg Documented by: Hydromorphone HCl (Dilaudid) 0.5 mg IV Q3H PRN PRN Reason: Pain , Severe (7-10) Azithromycin 500 mg/ Sodium (Chloride) 250 mls @ 250 mls/hr IV Q24HR [facility]; Protocol Sodium Chloride (Nacl 0.9%) 100 mls @ 999 mls/hr IV KIKA PRN PRN Reason: Hypotension Isosorbide Mononitrate (Imdur) 30 mg PO DAILY [facility] Last Admin: 01/06/19 10:10 Dose: 30 mg Documented by: Losartan Potassium (Cozaar) 25 mg PO QDAY [facility] Last Admin: 01/06/19 10:12 Dose: 25 mg Documented by: Metoclopramide HCl (Reglan) 5 mg PO TIDAC [facility] Last Admin: 01/06/19 08:53 Dose: 5 mg Documented by: Metoprolol Succinate (Metoprolol Xl) 25 mg PO QDAY [facility] Last Admin: 01/06/19 10:11 Dose: 25 mg Documented by: Multivit/Ca Carb/B Cmplx/FA/Prenat (Renal Caps) 1 cap PO QDAY [facility] Last Admin: 01/06/19 10:10 Dose: 1 cap Documented by: Ondansetron HCl (Zofran Odt) 4 mg PO Q8HR PRN PRN Reason: Nausea And Vomiting Last Admin: 01/06/19 02:09 Dose: 4 mg Documented by: Ondansetron HCl (Zofran) 4 mg IV Q8H PRN PRN Reason: Nausea And Vomiting Pravastatin Sodium (Pravachol) 80 mg PO QHS [facility] Last Admin: 01/05/19 23:25 Dose: 80 mg Documented by: Sodium Chloride (Sodium Chloride Flush Syringe 10 Ml) 10 ml IV BID [facility] Last Admin: 01/06/19 10:12 Dose: 10 ml Documented by: Sodium Chloride (Sodium Chloride Flush Syringe 10 Ml) 10 ml IV PRN PRN PRN Reason: LINE FLUSH Tramadol HCl (Ultram) 50 mg PO Q6HR PRN PRN Reason: Pain, Moderate (4-6) Review of Systems All systems: negative Neurological: weakness, change in speech Physical Examination - Vital Signs Vital Signs: Vital Signs Temp Pulse Resp BP 103.2 F H 88 20 108/51 01/05/19 10:29 01/05/19 10:29 01/05/19 10:29 01/05/19 10:29 - Physical Exam Narrative exam: Patient is awake, alert, oriented 4, follows complex commands. Pupils equal, round, reactive to light. Visual merchant full, EOMI, tongue midline, no facial weakness noted, bilaterally intact to light touch. 5/5 strength noted in all extremities. Bilaterally intact to light touch in all extremities. Bilaterally intact to finger to nose and heel to graham. 2+ reflexes throughout. Not noted to have any significant dysarthria or aphasia. - Constitutional General appearance: comfortable - EENT EENT: Present: ATNC, PERRL, mucous membranes moist, hearing intact, vision intact - Respiratory Respiratory: Present: normal breath sounds, no respiratory distress - Cardiovascular Cardiovascular: Present: regular rate, normal S1, normal S2 Extremities: Present: no clubbing, cyanosis, no inflammation - Gastrointestinal Gastrointestinal: Present: normoactive bowel sounds, soft, non-tender - Integumentary Integumentary: Present: normal - Musculoskeletal Musculoskeletal: Present: no fluid collection, no pain - Psychiatric Psychiatric: Present: mood/affect appropriate - Level of Consciousness 1a. Level of Consciousness: alert/keenly responsive - LOC Questions 1b. LOC Questions: answers both correctly - LOC Command 1c. LOC Commands: performs tasks correctly - Best Gaze 2. Best Gaze: normal - Visual 3. Visual: no visual loss - Facial Palsy 4. Facial Palsy: normal symmetrical movement - Motor Arm 5a. Motor Arm Left: no drift 5b. Motor Arm Right: no drift - Motor Leg 6a. Motor Leg Left: no drift 6b. Motor Leg Right: no drift - Limb Ataxia 7. Limb Ataxia: absent - Sensory 8. Sensory: normal - Best Language 9. Best Language: no aphasia - Dysarthria 10. Dysarthria: normal - Extinction and Inattention 11. Extinction/Inattention: no abnormality - Scoring Total Score: 0 Stroke Severity: No Stroke Symptoms Results - Laboratory Findings CBC and BMP: 01/06/19 08:30 01/06/19 08:30 Abnormal Lab Findings: Abnormal Labs 01/05/19 01/05/19 01/05/19 11:18 11:18 11:18 RBC 3.53 L Hgb 10.3 L Hct 30.7 L RDW 19.9 H Plt Count 69 L Lymph % (Auto) [place] % (Auto) Lymph # [place] # Seg Neutrophils % Seg Neuts % (Manual) 72.0 H Monocytes % (Manual) 10.0 H Seg Neutrophils # Monocytes # (Manual) 0.9 H INR 1.17 H APTT 36.8 H VBG pH 7.497 H Sodium Potassium Chloride Carbon Dioxide BUN Creatinine Glucose Calcium Total Bilirubin Direct Bilirubin Troponin T Total Protein Albumin HDL Cholesterol 01/05/19 01/06/19 01/06/19 11:18 08:30 08:30 RBC Hgb 10.9 L Hct 32.9 L RDW 20.2 H Plt Count 68 L Lymph % (Auto) 8.6 L [place] % (Auto) 13.1 H Lymph # 0.9 L [place] # 1.4 H Seg Neutrophils % 77.6 H Seg Neuts % (Manual) Monocytes % (Manual) Seg Neutrophils # 8.2 H Monocytes # (Manual) INR APTT VBG pH Sodium 132 L 133 L Potassium 3.3 L Chloride 92.6 L 92.2 L Carbon Dioxide 19 L 18 L BUN 32 H 48 H Creatinine 9.6 H 12.0 H Glucose 102 H Calcium 7.9 L 8.3 L Total Bilirubin 1.60 H 1.60 H Direct Bilirubin 0.7 H Troponin T 0.380 H* Total Protein 8.5 H 8.6 H Albumin 3.8 L 3.5 L HDL Cholesterol 34 L Assessment and Plan Patient is a 58 y/o man w/ a h/o hypertension, coronary artery disease, hyperlipidemia, GERD, end-stage renal disease on hemodialysis, HBV, who p/w slurred speech and left sided weakness. According to the patient's clinical findings, he likely had a stroke or a TIA. Plan: 1. Stroke vs. TIA: - Check MRI/MRA - Echo pending - CT head unremarkable - LDL 69, cont. statin - Telemetry monitoring while in house - Cont. ASA - PT/OT/ST - DVT Ppx: recommend lovenox 2. Hypertension: - Recommend BP goal of normotension, as it has been >48 hours since symptom onset. - Will continue to monitor patient. Thank you for allowing me to take part in the care of this patient. Vivek Hernandez MD Neurology
--- NOTE | 2019-01-06 19:19 | Progress Note ---
Assessment and Plan Total Time Spent with Patient (Minutes): 28 - Patient Problems (1) Left-sided weakness Current Visit: Yes Status: Acute Plan to address problem: Patient with left sided weakness see below CVA. (2) CVA (cerebral vascular accident) Current Visit: Yes Status: Acute Qualifiers: CVA mechanism: unspecified Qualified Code(s): I63.9 - Cerebral infarction, unspecified Plan to address problem: CVA versus TIA. Left extremity weakness has resolved. CT scan only shows ch ronic ischemic changes. MRI cannot be performed as of yet secondary to stent placement in heart. Symptoms of weakness has resolved now. Could be all secondary to sepsis and pneumonia as well. (3) End stage renal disease on dialysis Current Visit: Yes Status: Acute Plan to address problem: Patient requires hemodialysis we'll obtain renal consult for hemodialysis. (4) Febrile illness, acute Current Visit: Yes Status: Acute Plan to address problem: Sepsis septic shock. Secondary to pneumonia. (5) End-stage renal disease needing dialysis Current Visit: No Status: Acute (6) Septic shock Current Visit: Yes Status: Acute Plan to address problem: Patient was septic shock fever 102 hypotensive with clear etiology including left lower lobe pneumonia. We'll add vancomycin as well possibility of line sepsis. His processes patient is been noncompliant. Follow culture data. Supportive care hemodialysis and fluid if required. If patient develops persistent hypo-tension we'll transfer to ICU. 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 History Interval history: Patient 58-year-old male with a history of end-stage renal disease, hypertension and coronary disease tobacco abuse presents with slurred speech and left upper extremity weakness that began approximately 8 AM this morning. Patient also had a temperature 101.3 and was hypotensive. Initial evaluation chest x-ray found patient to have left lower lobe pneumonia. Also had left-sided weakness. At present patient is awake alert and follows commands no evidence of weakness on extremities at this particular time patient speaks clearly. of emre bedside state patient is at baseline. Only little weaker. Hospitalist Physical - Constitutional Vitals: Temp Pulse Resp BP Pulse Ox 98.5 F 98 H 20 95/64 100 01/06/19 18:29 01/06/19 18:29 01/06/19 18:29 01/06/19 18:29 01/06/19 16:37 General appearance: Present: no acute distress, cachectic - EENT Eyes: Present: PERRL, EOM intact, irregular pupil - Neck Neck: Present: supple, normal ROM - Respiratory Respiratory effort: normal Respiratory: bilateral: CTA - Cardiovascular Rhythm: regular Heart Sounds: Present: S1 & S2 - Extremities Extremities: no ischemia, pulses intact, pulses symmetrical, No edema, normal t emperature Peripheral Pulses: within normal limits - Abdominal General gastrointestinal: soft, non-tender, non-distended, hypoactive bowel sounds - Integumentary Integumentary: Present: clear, warm, dry - Psychiatric Psychiatric: appropriate mood/affect, intact judgment & insight, cooperative - Neurologic Neurologic: CNII-XII intact, moves all extremities Results - Labs CBC & Chem 7: 01/06/19 08:30 01/06/19 08:30 Labs: Laboratory Last Values WBC 10.6 K/mm3 (4.5-11.0) 01/06/19 08:30 RBC 3.76 M/mm3 (3.65-5.03) 01/06/19 08:30 Hgb 10.9 gm/dl (11.8-15.2) L 01/06/19 08:30 Hct 32.9 % (35.5-45.6) L 01/06/19 08:30 MCV 88 fl (84-94) 01/06/19 08:30 MCH 29 pg (28-32) 01/06/19 08:30 MCHC 33 % (32-34) 01/06/19 08:30 RDW 20.2 % (13.2-15.2) H 01/06/19 08:30 Plt Count 68 K/mm3 (140-440) L 01/06/19 08:30 Lymph % (Auto) 8.6 % (13.4-35.0) L 01/06/19 08:30 [place] % (Auto) 13.1 % (0.0-7.3) H 01/06/19 08:30 Eos % (Auto) 0.2 % (0.0-4.3) 01/06/19 08:30 Baso % (Auto) 0.5 % (0.0-1.8) 01/06/19 08:30 Lymph # 0.9 K/mm3 (1.2-5.4) L 01/06/19 08:30 [place] # 1.4 K/mm3 (0.0-0.8) H 01/06/19 08:30 Eos # 0.0 K/mm3 (0.0-0.4) 01/06/19 08:30 Baso # 0.1 K/mm3 (0.0-0.1) 01/06/19 08:30 Add Manual Diff Complete 01/05/19 11:18 Total Counted 100 01/05/19 11:18 Seg Neutrophils % 77.6 % (40.0-70.0) H 01/06/19 08:30 Seg Neuts % (Manual) 72.0 % (40.0-70.0) H 01/05/19 11:18 Band Neutrophils % 0 % 01/05/19 11:18 Lymphocytes % (Manual) 18.0 % (13.4-35.0) 01/05/19 11:18 Reactive Lymphs % (Man) 0 % 01/05/19 11:18 Monocytes % (Manual) 10.0 % (0.0-7.3) H 01/05/19 11:18 Eosinophils % (Manual) 0 % (0.0-4.3) 01/05/19 11:18 Basophils % (Manual) 0 % (0.0-1.8) 01/05/19 11:18 Metamyelocytes % 0 % 01/05/19 11:18 Myelocytes % 0 % 01/05/19 11:18 Promyelocytes % 0 % 01/05/19 11:18 Blast Cells % 0 % 01/05/19 11:18 Nucleated RBC % Not Reportable 01/05/19 11:18 Seg Neutrophils # 8.2 K/mm3 (1.8-7.7) H 01/06/19 08:30 Seg Neutrophils # Man 6.2 K/mm3 (1.8-7.7) 01/05/19 11:18 Band Neutrophils # 0.0 K/mm3 01/05/19 11:18 Lymphocytes # (Manual) 1.5 K/mm3 (1.2-5.4) 01/05/19 11:18 Abs React Lymphs (Man) 0.0 K/mm3 01/05/19 11:18 Monocytes # (Manual) 0.9 K/mm3 (0.0-0.8) H 01/05/19 11:18 Eosinophils # (Manual) 0.0 K/mm3 (0.0-0.4) 01/05/19 11:18 Basophils # (Manual) 0.0 K/mm3 (0.0-0.1) 01/05/19 11:18 Metamyelocytes # 0.0 K/mm3 01/05/19 11:18 Myelocytes # 0.0 K/mm3 01/05/19 11:18 Promyelocytes # 0.0 K/mm3 01/05/19 11:18 Blast Cells # 0.0 K/mm3 01/05/19 11:18 WBC Morphology Not Reportable 01/05/19 11:18 Hypersegmented Neuts Not Reportable 01/05/19 11:18 Hyposegmented Neuts Not Reportable 01/05/19 11:18 Hypogranular Neuts Not Reportable 01/05/19 11:18 Smudge Cells Not Reportable 01/05/19 11:18 Toxic Granulation Not Reportable 01/05/19 11:18 Toxic Vacuolation Not Reportable 01/05/19 11:18 Dohle Bodies Not Reportable 01/05/19 11:18 Pelger-Huet Anomaly Not Reportable 01/05/19 11:18 Gustavo Rods Not Reportable 01/05/19 11:18 Platelet Estimate Consistent w auto 01/05/19 11:18 Clumped Platelets Not Reportable 01/05/19 11:18 Plt Clumps, EDTA Not Reportable 01/05/19 11:18 Large Platelets Not Reportable 01/05/19 11:18 Giant Platelets Rare 01/05/19 11:18 Platelet Satelliting Not Reportable 01/05/19 11:18 Plt Morphology Comment Not Reportable 01/05/19 11:18 RBC Morphology Not Reportable 01/05/19 11:18 Dimorphic RBCs Not Reportable 01/05/19 11:18 Polychromasia Not Reportable 01/05/19 11:18 Hypochromasia Not Reportable 01/05/19 11:18 Poikilocytosis Not Reportable 01/05/19 11:18 Anisocytosis 1+ 01/05/19 11:18 Microcytosis Few 01/05/19 11:18 Macrocytosis Not Reportable 01/05/19 11:18 Spherocytes Not Reportable 01/05/19 11:18 Pappenheimer Bodies Not Reportable 01/05/19 11:18 Sickle Cells Not Reportable 01/05/19 11:18 Target Cells Not Reportable 01/05/19 11:18 Tear Drop Cells Not Reportable 01/05/19 11:18 Ovalocytes Not Reportable 01/05/19 11:18 Helmet Cells Not Reportable 01/05/19 11:18 [place] Bodies Not Reportable 01/05/19 11:18 [place] Rings Not Reportable 01/05/19 11:18 Richard Cells Not Reportable 01/05/19 11:18 Bite Cells Not Reportable 01/05/19 11:18 Crenated Cell Not Reportable 01/05/19 11:18 Elliptocytes Not Reportable 01/05/19 11:18 Acanthocytes (Spur) Not Reportable 01/05/19 11:18 Rouleaux Not Reportable 01/05/19 11:18 Hemoglobin C Crystals Not Reportable 01/05/19 11:18 Schistocytes Not Reportable 01/05/19 11:18 Malaria parasites Not Reportable 01/05/19 11:18 [place] Bodies Not Reportable 01/05/19 11:18 Hem Pathologist Commnt No 01/05/19 11:18 PT 14.8 Sec. (12.2-14.9) 01/05/19 11:18 INR 1.17 (0.87-1.13) H 01/05/19 11:18 APTT 36.8 Sec. (24.2-36.6) H 01/05/19 11:18 VBG pH 7.497 (7.320-7.420) H 01/05/19 11:18 Sodium 133 mmol/L (137-145) L 01/06/19 08:30 Potassium 4.4 mmol/L (3.6-5.0) D 01/06/19 08:30 Chloride 92.2 mmol/L (98-107) L 01/06/19 08:30 Carbon Dioxide 18 mmol/L (22-30) L 01/06/19 08:30 Anion Gap 27 mmol/L 01/06/19 08:30 BUN 48 mg/dL (9-20) H 01/06/19 08:30 Creatinine 12.0 mg/dL (0.8-1.5) H 01/06/19 08:30 Estimated GFR 5 ml/min 01/06/19 08:30 BUN/Creatinine Ratio 4 % 01/06/19 08:30 Glucose 102 mg/dL (75-100) H 01/06/19 08:30 POC Glucose 93 (70-105) 01/05/19 12:02 Hemoglobin A1c 5.5 % (4-6) 01/05/19 23:09 Lactic Acid 1.80 mmol/L (0.7-2.0) 01/05/19 14:41 Calcium 8.3 mg/dL (8.4-10.2) L 01/06/19 08:30 Magnesium 1.80 mg/dL (1.7-2.3) 01/05/19 11:18 Total Bilirubin 1.60 mg/dL (0.1-1.2) H 01/06/19 08:30 Direct Bilirubin 0.7 mg/dL (0-0.2) H 01/05/19 11:18 Indirect Bilirubin 0.9 mg/dL 01/05/19 11:18 AST 29 units/L (5-40) 01/06/19 08:30 ALT 40 units/L (7-56) 01/06/19 08:30 Alkaline Phosphatase 89 units/L (35-129) 01/06/19 08:30 Ammonia 40.0 umol/L (25-60) 01/05/19 14:41 Total Creatine Kinase 157 units/L (55-170) 01/05/19 11:18 CK-MB (CK-2) < 1.0 ng/mL (0.0-4.0) 01/05/19 11:18 CK-MB (CK-2) Rel Index 0.6 (0-4) 01/05/19 11:18 Troponin T 0.380 ng/mL (0.00-0.029) H* 01/05/19 11:18 Total Protein 8.6 g/dL (6.3-8.2) H 01/06/19 08:30 Albumin 3.5 g/dL (3.9-5) L 01/06/19 08:30 Albumin/Globulin Ratio 0.7 % 01/06/19 08:30 Triglycerides 108 mg/dL (2-149) 01/05/19 11:18 Cholesterol 123 mg/dL (50-199) 01/05/19 11:18 LDL Cholesterol Direct 69 mg/dL (50-130) 01/05/19 11:18 HDL Cholesterol 34 mg/dL (40-59) L 01/05/19 11:18 Cholesterol/HDL Ratio 3.61 % 01/05/19 11:18 - Imaging and Cardiology Chest x-ray: report reviewed, image reviewed CT Scan - head: report reviewed, image reviewed Active Medications - Current Medications Current Medications: Generic Name Dose Route Start Last Admin Trade Name Freq PRN Reason Stop Dose Admin Acetaminophen 650 mg 01/05/19 21:55 01/06/19 17:00 Tylenol PO 650 mg Q4H PRN Administration Pain MILD(1-3)/Fever >100.5/CORONADO Acetaminophen/Hydrocodone Bitart 1 each 01/05/19 21:53 [place] 10/325 PO Q6HR PRN Pain, Moderate (4-6) Aspirin 81 mg 01/05/19 22:00 01/06/19 10:10 Halfprin Ec PO 81 mg QDAY JOSH Administration Calcium Acetate 667 mg 01/06/19 08:00 01/06/19 18:42 Phoslo PO 667 mg TIDWM JOSH Administration Famotidine 10 mg 01/05/19 22:00 01/06/19 10:10 Pepcid PO 10 mg BID JOSH Administration Hydromorphone HCl 0.5 mg 01/05/19 21:55 Dilaudid IV Q3H PRN Pain , Severe (7-10) Azithromycin 500 mg/ Sodium 250 mls @ 250 mls/hr 01/06/19 10:00 01/06/19 11:00 Chloride IV 250 mls/hr Q24HR JOSH Administration Protocol Sodium Chloride 100 mls @ 999 mls/hr 01/06/19 10:55 Nacl 0.9% IV KIKA PRN Hypotension Isosorbide Mononitrate 30 mg 01/06/19 10:00 01/06/19 10:10 Imdur PO 30 mg DAILY JOSH Administration Losartan Potassium 25 mg 01/06/19 10:00 01/06/19 10:12 Cozaar PO 25 mg QDAY JOSH Administration Metoclopramide HCl 5 mg 01/06/19 07:30 01/06/19 17:00 Reglan PO 5 mg TIDAC JOSH Administration Metoprolol Succinate 25 mg 01/06/19 10:00 01/06/19 10:11 Metoprolol Xl PO 25 mg QDAY JOSH Administration Multivit/Ca Carb/B Cmplx/FA/Prenat 1 cap 01/06/19 10:00 01/06/19 10:10 Renal Caps PO 1 cap QDAY JOSH Administration Ondansetron HCl 4 mg 01/05/19 21:53 01/06/19 02:09 Zofran Odt PO 4 mg Q8HR PRN Administration Nausea And Vomiting Ondansetron HCl 4 mg 01/05/19 21:55 Zofran IV Q8H PRN Nausea And Vomiting Pravastatin Sodium 80 mg 01/05/19 22:00 01/05/19 23:25 Pravachol PO 80 mg QHS JOSH Administration Sodium Chloride 10 ml 01/05/19 22:00 01/06/19 10:12 Sodium Chloride Flush Syringe 10 Ml IV 10 ml BID JOSH Administration Sodium Chloride 10 ml 01/05/19 21:55 Sodium Chloride Flush Syringe 10 Ml IV PRN PRN LINE FLUSH Tramadol HCl 50 mg 01/05/19 21:53 Ultram PO Q6HR PRN Pain, Moderate (4-6)
[2019-01-06] MEDS ORDERED: VANCOMYCIN PHARMACY TO DOSE IV SCH (21:00)
[2019-01-07] MEDS: FAMOTIDINE 10 MG TAB PO SCH ×3 (00:14→22:10)
[2019-01-07] MEDS: ACETAMINOPHEN 325 MG TAB PO PRN (00:14)
[2019-01-07] MEDS: PRAVASTATIN 80 MG TAB PO SCH ×2 (00:14→22:10)
[2019-01-07] MEDS: METOCLOPRAMIDE 10 MG TAB PO SCH ×3 (08:37→19:27)
[2019-01-07] MEDS: CALCIUM ACETATE 667 MG CAP PO SCH ×3 (08:38→19:27)
--- NOTE | 2019-01-07 09:19 | Progress Note ---
Assessment and Plan 1. ESRD: Continue hemodialysis three times a week, MWF schedule. Hemodialysis: 01/07. 2. FEN: Metabolic acidosis, HD today. Renal diet. Monitor. 3. Malfunctioning AVF: S/p angioplasty. 4. Suspected acute CVA. 5. Pneumonia: Continue Abx. 6. DM type 2. 7. HTN. 8. Anemia: POA. Monitor. Epogen if needed. 9. Thrombocytopenia: POA, chronic. 10. PAD. Examination: General appearance: well-developed, appears stated age, not in distress HEENT: ATNC, ROLLY, hearing intact, vision intact Neck: neck supple, trachea midline Respiratory: Clear to Ascultation Heart: regular, S1S2, no murmurs Gastrointestinal: normoactive bowel sounds, not tender, not distended Integumentary: no rash, warm and dry Neurologic: no focal deficit, no asterixis, alert and oriented x3 Musculoskeletal: b/l TMA Ext: No edema Hemodialysis access: R arm AVF with absent bruit Subjective Date of service: 01/07/19 Interval history: Patient was seen and examined at the bedside. Unable to dialyze yesterday due to clotted access. Objective - Vital Signs Vital signs: Vital Signs - 12hr 01/06/19 01/07/19 23:27 03:28 Temperature 98.9 F 98.7 F Pulse Rate 49 L 68 Respiratory 18 18 Rate Blood Pressure 81/21 80/40 O2 Sat by Pulse 87 100 Oximetry - Lab 01/06/19 08:30 01/07/19 09:13 Most recent lab results Calcium 8.3 mg/dL (8.4-10.2) L 01/06/19 08:30 Magnesium 1.80 mg/dL (1.7-2.3) 01/05/19 11:18 Medications & Allergies - Medications Allergies/Adverse Reactions: Allergies metformin Adverse Reaction (Verified 03/30/16 09:16) "SPOT ON LIVER" Home Medications: Home Medications Medication Instructions Recorded Confirmed Last Taken Type HYDROcodone/APAP 10-325 [[place] 1 each PO Q6HR PRN #20 tablet 06/10/13 01/07/19 07/03/16 19:00 Rx 10-325 mg TAB] Vit B Comp No.3/Folic/C/Biotin 1 tab PO TID 06/10/13 01/07/19 06/30/16 17:00 History [Dari-Norah Rx Tablet] Aspirin EC [Halfprin EC] 81 mg PO QDAY 12/16/15 01/07/19 07/04/16 05:00 History Calcium Acetate [Phoslo] 667 mg PO TID 12/16/15 01/07/19 06/30/16 17:00 History Calcium Carbonate [Tums Ultra 1,177 mg PO TID 12/16/15 01/07/19 07/03/16 21:00 History Strength 1177MG CHEW] Ergocalciferol [Vitamin D2] 1 cap PO QWEEK 12/16/15 01/07/19 06/28/16 09:00 History ISOSORBIDE MONOnitrate [Imdur ER] 30 mg PO DAILY #30 tab.er.24h 12/16/15 01/07/19 07/03/16 08:00 Rx Losartan [Cozaar] 25 mg PO QDAY #30 tablet 12/16/15 01/07/19 07/03/16 08:00 Rx Metoprolol Xl [Metoprolol 25 mg PO QDAY #30 tablet 12/16/15 01/07/19 07/04/16 07:30 Rx SUCCINATE ER TAB] Simvastatin [Zocor TAB] 40 mg PO QHS #30 tablet 12/16/15 01/07/19 06/30/16 21:00 Rx Dexlansoprazole [Dexilant] 60 mg PO QDAY #30 cap.bp 09/28/18 01/07/19 Unknown Rx Metoclopramide [Reglan] 10 mg PO TID #60 tab 09/28/18 01/07/19 Unknown Rx Ondansetron [Zofran Odt] 4 mg PO Q8HR PRN #14 tab.rapdis 11/10/18 01/07/19 Unknown Rx traMADoL [Ultram] 50 mg PO Q6HR PRN #14 tablet 11/10/18 01/07/19 Unknown Rx Active Medications: Generic Name Dose Route Start Last Admin Trade Name Freq PRN Reason Stop Dose Admin Acetaminophen 650 mg 01/05/19 21:55 01/07/19 00:14 Tylenol PO 650 mg Q4H PRN Administration Pain MILD(1-3)/Fever >100.5/CORONADO Acetaminophen/Hydrocodone Bitart 1 each 01/05/19 21:53 [place] 10/325 PO Q6HR PRN Pain, Moderate (4-6) Aspirin 81 mg 01/05/19 22:00 01/06/19 10:10 Halfprin Ec PO 81 mg QDAY JOSH Administration Calcium Acetate 667 mg 01/06/19 08:00 01/07/19 08:38 Phoslo PO 667 mg TIDWM JOSH Administration Famotidine 10 mg 01/05/19 22:00 01/07/19 00:14 Pepcid PO 10 mg BID JOSH Administration Hydromorphone HCl 0.5 mg 01/05/19 21:55 Dilaudid IV Q3H PRN Pain , Severe (7-10) Azithromycin 500 mg/ Sodium 250 mls @ 250 mls/hr 01/06/19 10:00 01/06/19 11:00 Chloride IV 250 mls/hr Q24HR JOSH Administration Protocol Sodium Chloride 100 mls @ 999 mls/hr 01/06/19 10:55 Nacl 0.9% IV KIKA PRN Hypotension Isosorbide Mononitrate 30 mg 01/06/19 10:00 01/06/19 10:10 Imdur PO 30 mg DAILY JOSH Administration Losartan Potassium 25 mg 01/06/19 10:00 01/06/19 10:12 Cozaar PO 25 mg QDAY JOSH Administration Metoclopramide HCl 5 mg 01/06/19 07:30 01/07/19 08:37 Reglan PO 5 mg TIDAC JOSH Administration Metoprolol Succinate 25 mg 01/06/19 10:00 01/06/19 10:11 Metoprolol Xl PO 25 mg QDAY JOSH Administration Multivit/Ca Carb/B Cmplx/FA/Prenat 1 cap 01/06/19 10:00 01/06/19 10:10 Renal Caps PO 1 cap QDAY JOSH Administration Ondansetron HCl 4 mg 01/05/19 21:53 01/06/19 02:09 Zofran Odt PO 4 mg Q8HR PRN Administration Nausea And Vomiting Ondansetron HCl 4 mg 01/05/19 21:55 Zofran IV Q8H PRN Nausea And Vomiting Pravastatin Sodium 80 mg 01/05/19 22:00 01/07/19 00:14 Pravachol PO 80 mg QHS JOSH Administration Sodium Chloride 10 ml 01/05/19 22:00 01/07/19 00:17 Sodium Chloride Flush Syringe 10 Ml IV 10 ml BID JOSH Administration Sodium Chloride 10 ml 01/05/19 21:55 Sodium Chloride Flush Syringe 10 Ml IV PRN PRN LINE FLUSH Tramadol HCl 50 mg 01/05/19 21:53 Ultram PO Q6HR PRN Pain, Moderate (4-6)
[2019-01-07 10:05] LABS: Calcium 8.1 mg/dL (8.4-10.2)
[2019-01-07] MEDS: FOLIC ACID/VIT B COMP W-C 1 MG (RENAL CAPS) PO SCH (10:32)
[2019-01-07] MEDS: METOPROLOL SUCCINATE XL 25 MG TAB PO SCH (10:32)
[2019-01-07] MEDS: ASPIRIN EC 81 MG TAB PO SCH (10:32)
[2019-01-07] MEDS: LOSARTAN 25 MG TAB PO SCH (10:33)
[2019-01-07] MEDS: AZITHROMYCIN 500 MG in SODIUM CHLORIDE 0.9% 250ML 250 ML IV SCH (10:43)
[2019-01-07] MEDS ORDERED: MIDAZOLAM 2 MG/2 ML INJ ONE (11:52)
[2019-01-07] MEDS ORDERED: HEPARIN 10,000 UNITS/10 ML VIAL ONE (11:52)
[2019-01-07] MEDS ORDERED: LIDOCAINE 1%/EPINEPHRINE 1:100,000 VIAL (20 ML) INFILTRATI ONE (11:52)
[2019-01-07] MEDS ORDERED: fentaNYL 100 MCG/2 ML INJ ONE (11:52)
[2019-01-07] MEDS ORDERED: HEPARIN/NS 5000 UNIT/500ML 1,000 ML IR ONE (11:52)
[2019-01-07] MEDS ORDERED: SODIUM CHLORIDE 0.9% 250ML 250 ML ONE (11:53)
--- NOTE | 2019-01-07 12:17 | Progress Note ---
Assessment and Plan Assessment and plan: Patient 58-year-old male with a history of end-stage renal disease, hypertension and coronary disease tobacco abuse presents with slurred speech and left upper extremity weakness that began approximately 8 AM. Patient also had a temperature 101.3 and was hypotensive. Initial evaluation chest x-ray found patient to have left lower lobe pneumonia. Also had left-sided weakness. At present patient is awake alert and follows commands no evidence of weakness on extremities at this particular time patient speaks clearly. of emre bedside state patient is at baseline. Only little weaker. - Patient Problems (1) Left-sided weakness Current Visit: Yes Status: Acute Plan to address problem: Patient with left sided weakness see below CVA. (2) CVA (cerebral vascular accident) Current Visit: Yes Status: Acute Qualifiers: CVA mechanism: unspecified Qualified Code(s): I63.9 - Cerebral infarction, unspecified Plan to address problem: CVA versus TIA. Left extremity weakness has resolved. CT scan only shows chronic ischemic changes. MRI cannot be performed as of yet secondary to stent placement in heart. Symptoms of weakness has resolved now. Could be all secondary to sepsis and pneumonia as well. Discussed with family, awaiting for records Also discussed with Neurology (3) End stage renal disease on dialysis Current Visit: Yes Status: Acute Plan to address problem: Patient requires hemodialysis we'll obtain renal consult for hemodialysis. DIalysis catheter being replaced today due to clotted access (4) Febrile illness, acute Current Visit: Yes Status: Acute Plan to address problem: Sepsis septic shock. Secondary to pneumonia. (5) End-stage renal disease needing dialysis Current Visit: No Status: Acute (6) Septic shock Current Visit: Yes Status: Acute Plan to address problem: Patient was septic shock fever 102 hypotensive with clear etiology including lef t lower lobe pneumonia. We'll add vancomycin as well possibility of line sepsis. His processes patient is been noncompliant. Follow culture data. Supportive care hemodialysis and fluid if required. If patient develops persistent hypo-tension we'll transfer to ICU. 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 History Interval history: Patient seen and examined, resting comfortable in no acute distress Hospitalist Physical - Physical exam Narrative exam: General appearance: Present: no acute distress, cachectic - EENT Eyes: Present: PERRL, EOM intact, irregular pupil - Neck Neck: Present: supple, normal ROM - Respiratory Respiratory effort: normal Respiratory: bilateral: CTA - Cardiovascular Rhythm: regular Heart Sounds: Present: S1 & S2 - Extremities Extremities: no ischemia, pulses intact, pulses symmetrical, No edema, normal temperature Peripheral Pulses: within normal limits - Abdominal General gastrointestinal: soft, non-tender, non-distended, hypoactive bowel sounds - Integumentary Integumentary: Present: clear, warm, dry - Psychiatric Psychiatric: appropriate mood/affect, intact judgment & insight, cooperative - Neurologic Neurologic: CNII-XII intact, moves all extremities - Constitutional Vitals: Temp Pulse Resp BP Pulse Ox 99.2 F 62 18 117/93 100 01/07/19 07:42 01/07/19 10:34 01/07/19 07:42 01/07/19 10:34 01/07/19 03:28 General appearance: Present: no acute distress, cachectic Results - Labs CBC & Chem 7: 01/06/19 08:30 01/07/19 09:13 Labs: Laboratory Last Values WBC 10.6 K/mm3 (4.5-11.0) 01/06/19 08:30 RBC 3.76 M/mm3 (3.65-5.03) 01/06/19 08:30 Hgb 10.9 gm/dl (11.8-15.2) L 01/06/19 08:30 Hct 32.9 % (35.5-45.6) L 01/06/19 08:30 MCV 88 fl (84-94) 01/06/19 08:30 MCH 29 pg (28-32) 01/06/19 08:30 MCHC 33 % (32-34) 01/06/19 08:30 RDW 20.2 % (13.2-15.2) H 01/06/19 08:30 Plt Count 68 K/mm3 (140-440) L 01/06/19 08:30 Lymph % (Auto) 8.6 % (13.4-35.0) L 01/06/19 08:30 [place] % (Auto) 13.1 % (0.0-7.3) H 01/06/19 08:30 Eos % (Auto) 0.2 % (0.0-4.3) 01/06/19 08:30 Baso % (Auto) 0.5 % (0.0-1.8) 01/06/19 08:30 Lymph # 0.9 K/mm3 (1.2-5.4) L 01/06/19 08:30 [place] # 1.4 K/mm3 (0.0-0.8) H 01/06/19 08:30 Eos # 0.0 K/mm3 (0.0-0.4) 01/06/19 08:30 Baso # 0.1 K/mm3 (0.0-0.1) 01/06/19 08:30 Add Manual Diff Complete 01/05/19 11:18 Total Counted 100 01/05/19 11:18 Seg Neutrophils % 77.6 % (40.0-70.0) H 01/06/19 08:30 Seg Neuts % (Manual) 72.0 % (40.0-70.0) H 01/05/19 11:18 Band Neutrophils % 0 % 01/05/19 11:18 Lymphocytes % (Manual) 18.0 % (13.4-35.0) 01/05/19 11:18 Reactive Lymphs % (Man) 0 % 01/05/19 11:18 Monocytes % (Manual) 10.0 % (0.0-7.3) H 01/05/19 11:18 Eosinophils % (Manual) 0 % (0.0-4.3) 01/05/19 11:18 Basophils % (Manual) 0 % (0.0-1.8) 01/05/19 11:18 Metamyelocytes % 0 % 01/05/19 11:18 Myelocytes % 0 % 01/05/19 11:18 Promyelocytes % 0 % 01/05/19 11:18 Blast Cells % 0 % 01/05/19 11:18 Nucleated RBC % Not Reportable 01/05/19 11:18 Seg Neutrophils # 8.2 K/mm3 (1.8-7.7) H 01/06/19 08:30 Seg Neutrophils # Man 6.2 K/mm3 (1.8-7.7) 01/05/19 11:18 Band Neutrophils # 0.0 K/mm3 01/05/19 11:18 Lymphocytes # (Manual) 1.5 K/mm3 (1.2-5.4) 01/05/19 11:18 Abs React Lymphs (Man) 0.0 K/mm3 01/05/19 11:18 Monocytes # (Manual) 0.9 K/mm3 (0.0-0.8) H 01/05/19 11:18 Eosinophils # (Manual) 0.0 K/mm3 (0.0-0.4) 01/05/19 11:18 Basophils # (Manual) 0.0 K/mm3 (0.0-0.1) 01/05/19 11:18 Metamyelocytes # 0.0 K/mm3 01/05/19 11:18 Myelocytes # 0.0 K/mm3 01/05/19 11:18 Promyelocytes # 0.0 K/mm3 01/05/19 11:18 Blast Cells # 0.0 K/mm3 01/05/19 11:18 WBC Morphology Not Reportable 01/05/19 11:18 Hypersegmented Neuts Not Reportable 01/05/19 11:18 Hyposegmented Neuts Not Reportable 01/05/19 11:18 Hypogranular Neuts Not Reportable 01/05/19 11:18 Smudge Cells Not Reportable 01/05/19 11:18 Toxic Granulation Not Reportable 01/05/19 11:18 Toxic Vacuolation Not Reportable 01/05/19 11:18 Dohle Bodies Not Reportable 01/05/19 11:18 Pelger-Huet Anomaly Not Reportable 01/05/19 11:18 Gustavo Rods Not Reportable 01/05/19 11:18 Platelet Estimate Consistent w auto 01/05/19 11:18 Clumped Platelets Not Reportable 01/05/19 11:18 Plt Clumps, EDTA Not Reportable 01/05/19 11:18 Large Platelets Not Reportable 01/05/19 11:18 Giant Platelets Rare 01/05/19 11:18 Platelet Satelliting Not Reportable 01/05/19 11:18 Plt Morphology Comment Not Reportable 01/05/19 11:18 RBC Morphology Not Reportable 01/05/19 11:18 Dimorphic RBCs Not Reportable 01/05/19 11:18 Polychromasia Not Reportable 01/05/19 11:18 Hypochromasia Not Reportable 01/05/19 11:18 Poikilocytosis Not Reportable 01/05/19 11:18 Anisocytosis 1+ 01/05/19 11:18 Microcytosis Few 01/05/19 11:18 Macrocytosis Not Reportable 01/05/19 11:18 Spherocytes Not Reportable 01/05/19 11:18 Pappenheimer Bodies Not Reportable 01/05/19 11:18 Sickle Cells Not Reportable 01/05/19 11:18 Target Cells Not Reportable 01/05/19 11:18 Tear Drop Cells Not Reportable 01/05/19 11:18 Ovalocytes Not Reportable 01/05/19 11:18 Helmet Cells Not Reportable 01/05/19 11:18 [place] Bodies Not Reportable 01/05/19 11:18 [place] Rings Not Reportable 01/05/19 11:18 [place] Cells Not Reportable 01/05/19 11:18 Bite Cells Not Reportable 01/05/19 11:18 Crenated Cell Not Reportable 01/05/19 11:18 Elliptocytes Not Reportable 01/05/19 11:18 Acanthocytes (Spur) Not Reportable 01/05/19 11:18 Rouleaux Not Reportable 01/05/19 11:18 Hemoglobin C Crystals Not Reportable 01/05/19 11:18 Schistocytes Not Reportable 01/05/19 11:18 Malaria parasites Not Reportable 01/05/19 11:18 [place] Bodies Not Reportable 01/05/19 11:18 Hem Pathologist Commnt No 01/05/19 11:18 PT 14.8 Sec. (12.2-14.9) 01/05/19 11:18 INR 1.17 (0.87-1.13) H 01/05/19 11:18 APTT 36.8 Sec. (24.2-36.6) H 01/05/19 11:18 VBG pH 7.497 (7.320-7.420) H 01/05/19 11:18 Sodium 134 mmol/L (137-145) L 01/07/19 09:13 Potassium 3.8 mmol/L (3.6-5.0) 01/07/19 09:13 Chloride 93.0 mmol/L (98-107) L 01/07/19 09:13 Carbon Dioxide 17 mmol/L (22-30) L 01/07/19 09:13 Anion Gap 28 mmol/L 01/07/19 09:13 BUN 60 mg/dL (9-20) H 01/07/19 09:13 Creatinine 13.4 mg/dL (0.8-1.5) H 01/07/19 09:13 Estimated GFR 5 ml/min 01/07/19 09:13 BUN/Creatinine Ratio 4 % 01/07/19 09:13 Glucose 82 mg/dL (75-100) 01/07/19 09:13 POC Glucose 93 (70-105) 01/05/19 12:02 Hemoglobin A1c 5.5 % (4-6) 01/05/19 23:09 Lactic Acid 1.80 mmol/L (0.7-2.0) 01/05/19 14:41 Calcium 8.1 mg/dL (8.4-10.2) L 01/07/19 09:13 Magnesium 1.80 mg/dL (1.7-2.3) 01/05/19 11:18 Total Bilirubin 1.60 mg/dL (0.1-1.2) H 01/06/19 08:30 Direct Bilirubin 0.7 mg/dL (0-0.2) H 01/05/19 11:18 Indirect Bilirubin 0.9 mg/dL 01/05/19 11:18 AST 29 units/L (5-40) 01/06/19 08:30 ALT 40 units/L (7-56) 01/06/19 08:30 Alkaline Phosphatase 89 units/L (35-129) 01/06/19 08:30 Ammonia 40.0 umol/L (25-60) 01/05/19 14:41 Total Creatine Kinase 157 units/L (55-170) 01/05/19 11:18 CK-MB (CK-2) < 1.0 ng/mL (0.0-4.0) 01/05/19 11:18 CK-MB (CK-2) Rel Index 0.6 (0-4) 01/05/19 11:18 Troponin T 0.380 ng/mL (0.00-0.029) H* 01/05/19 11:18 Total Protein 8.6 g/dL (6.3-8.2) H 01/06/19 08:30 Albumin 3.5 g/dL (3.9-5) L 01/06/19 08:30 Albumin/Globulin Ratio 0.7 % 01/06/19 08:30 Triglycerides 108 mg/dL (2-149) 01/05/19 11:18 Cholesterol 123 mg/dL (50-199) 01/05/19 11:18 LDL Cholesterol Direct 69 mg/dL (50-130) 01/05/19 11:18 HDL Cholesterol 34 mg/dL (40-59) L 01/05/19 11:18 Cholesterol/HDL Ratio 3.61 % 01/05/19 11:18 Random Vancomycin 16.7 ug/mL (0-40.0) 01/07/19 09:13 Active Medications - Current Medications Current Medications: Generic Name Dose Route Start Last Admin Trade Name Freq PRN Reason Stop Dose Admin Acetaminophen 650 mg 01/05/19 21:55 01/07/19 00:14 Tylenol PO 650 mg Q4H PRN Administration Pain MILD(1-3)/Fever >100.5/CORONADO Acetaminophen/Hydrocodone Bitart 1 each 01/05/19 21:53 [place] 10/325 PO Q6HR PRN Pain, Moderate (4-6) Aspirin 81 mg 01/05/19 22:00 01/07/19 10:32 Halfprin Ec PO 81 mg QDAY JOSH Administration Calcium Acetate 667 mg 01/06/19 08:00 01/07/19 12:15 Phoslo PO Not Given TIDWM JOSH Famotidine 10 mg 01/05/19 22:00 01/07/19 10:33 Pepcid PO 10 mg BID JOSH Administration Hydromorphone HCl 0.5 mg 01/05/19 21:55 Dilaudid IV Q3H PRN Pain , Severe (7-10) Azithromycin 500 mg/ Sodium 250 mls @ 250 mls/hr 01/06/19 10:00 01/07/19 10:43 Chloride IV 250 mls/hr Q24HR JOSH Administration Protocol Sodium Chloride 100 mls @ 999 mls/hr 01/06/19 10:55 Nacl 0.9% IV KIKA PRN Hypotension Isosorbide Mononitrate 30 mg 01/06/19 10:00 01/07/19 10:34 Imdur PO Not Given DAILY JOSH Losartan Potassium 25 mg 01/06/19 10:00 01/07/19 10:33 Cozaar PO Not Given QDAY JOSH Metoclopramide HCl 5 mg 01/06/19 07:30 01/07/19 12:14 Reglan PO Not Given TIDAC JSOH Metoprolol Succinate 25 mg 01/06/19 10:00 01/07/19 10:32 Metoprolol Xl PO 25 mg QDAY JOSH Administration Multivit/Ca Carb/B Cmplx/FA/Prenat 1 cap 01/06/19 10:00 01/07/19 10:32 Renal Caps PO 1 cap QDAY JOSH Administration Ondansetron HCl 4 mg 01/05/19 21:53 01/06/19 02:09 Zofran Odt PO 4 mg Q8HR PRN Administration Nausea And Vomiting Ondansetron HCl 4 mg 01/05/19 21:55 Zofran IV Q8H PRN Nausea And Vomiting Pravastatin Sodium 80 mg 01/05/19 22:00 01/07/19 00:14 Pravachol PO 80 mg QHS JOSH Administration Sodium Chloride 10 ml 01/05/19 22:00 01/07/19 10:34 Sodium Chloride Flush Syringe 10 Ml IV 10 ml BID JOSH Administration Sodium Chloride 10 ml 01/05/19 21:55 Sodium Chloride Flush Syringe 10 Ml IV PRN PRN LINE FLUSH Tramadol HCl 50 mg 01/05/19 21:53 Ultram PO Q6HR PRN Pain, Moderate (4-6)
--- NOTE | 2019-01-07 12:46 | Consultation ---
History of Present Illness - Reason for Consult Consult date: 01/07/19 AV access malfunction - History of Present Illness The patient is a 58 Yo male with history significant for DM type 2, HTN, PAD, Anemia, ESRD on hemodialysis (MWF), Tobacco smoking and Medical non-compliance who presented to [facility] ED 01/05 with c/o L sided weakness and L facial numbness that started few hours [employer]. He also reports slurred speech. He denies any fever, chills, N, V, D, CORONADO, dizziness, cp, sob, leg swelling, diplopia or syncope. His initial temperature was 103.2 F. He was last dialyzed on 01/03. His symptoms have resolved now. CXR showed early PNA. Pt was admitted for collin tment of CVA / TIA, PNA and ESRD. The patient had attempted to have dialysis performed, but the access was "clotted" and therefore vascular was consulted. Past History Past Medical History: anemia, diabetes, dialysis, ESRD, hypertension, other (Smoking, PAD) Social history: smoking Family history: hypertension Medications and Allergies Allergies Allergy/AdvReac Type Severity Reaction Status Date / Time metformin AdvReac "SPOT ON Verified 03/30/16 09:16 LIVER" Home Medications Medication Instructions Recorded Confirmed Last Taken Type HYDROcodone/APAP 10-325 [[place] 1 each PO Q6HR PRN #20 tablet 06/10/13 01/07/19 07/03/16 19:00 Rx 10-325 mg TAB] Vit B Comp No.3/Folic/C/Biotin 1 tab PO TID 06/10/13 01/07/19 06/30/16 17:00 History [Dari-Norah Rx Tablet] Aspirin EC [Halfprin EC] 81 mg PO QDAY 12/16/15 01/07/19 07/04/16 05:00 History Calcium Acetate [Phoslo] 667 mg PO TID 12/16/15 01/07/19 06/30/16 17:00 History Calcium Carbonate [Tums Ultra 1,177 mg PO TID 12/16/15 01/07/19 07/03/16 21:00 History Strength 1177MG CHEW] Ergocalciferol [Vitamin D2] 1 cap PO QWEEK 12/16/15 01/07/19 06/28/16 09:00 History ISOSORBIDE MONOnitrate [Imdur ER] 30 mg PO DAILY #30 tab.er.24h 12/16/15 01/07/19 07/03/16 08:00 Rx Losartan [Cozaar] 25 mg PO QDAY #30 tablet 12/16/15 01/07/19 07/03/16 08:00 Rx Metoprolol Xl [Metoprolol 25 mg PO QDAY #30 tablet 12/16/15 01/07/19 07/04/16 07:30 Rx SUCCINATE ER TAB] Simvastatin [Zocor TAB] 40 mg PO QHS #30 tablet 12/16/15 01/07/19 06/30/16 21:00 Rx Dexlansoprazole [Dexilant] 60 mg PO QDAY #30 cap.bp 09/28/18 01/07/19 Unknown Rx Metoclopramide [Reglan] 10 mg PO TID #60 tab 09/28/18 01/07/19 Unknown Rx Ondansetron [Zofran Odt] 4 mg PO Q8HR PRN #14 tab.rapdis 11/10/18 01/07/19 Unknown Rx traMADoL [Ultram] 50 mg PO Q6HR PRN #14 tablet 11/10/18 01/07/19 Unknown Rx Active Meds: Active Medications Acetaminophen (Tylenol) 650 mg PO Q4H PRN PRN Reason: Pain MILD(1-3)/Fever >100.5/CORONADO Last Admin: 01/07/19 00:14 Dose: 650 mg Documented by: Acetaminophen/Hydrocodone Bitart ([place] 10/325) 1 each PO Q6HR PRN PRN Reason: Pain, Moderate (4-6) Aspirin (Halfprin Ec) 81 mg PO QDAY [facility] Last Admin: 01/07/19 10:32 Dose: 81 mg Documented by: Calcium Acetate (Phoslo) 667 mg PO TIDWM [facility] Last Admin: 01/07/19 12:15 Dose: Not Given Documented by: Famotidine (Pepcid) 10 mg PO BID [facility] Last Admin: 01/07/19 10:33 Dose: 10 mg Documented by: Hydromorphone HCl (Dilaudid) 0.5 mg IV Q3H PRN PRN Reason: Pain , Severe (7-10) Azithromycin 500 mg/ Sodium (Chloride) 250 mls @ 250 mls/hr IV Q24HR [facility]; Protocol Last Admin: 01/07/19 10:43 Dose: 250 mls/hr Documented by: Sodium Chloride (Nacl 0.9%) 100 mls @ 999 mls/hr IV KIKA PRN PRN Reason: Hypotension Isosorbide Mononitrate (Imdur) 30 mg PO DAILY [facility] Last Admin: 01/07/19 10:34 Dose: Not Given Documented by: Losartan Potassium (Cozaar) 25 mg PO QDAY [facility] Last Admin: 01/07/19 10:33 Dose: Not Given Documented by: Metoclopramide HCl (Reglan) 5 mg PO TIDAC [facility] Last Admin: 01/07/19 12:14 Dose: Not Given Documented by: Metoprolol Succinate (Metoprolol Xl) 25 mg PO QDAY [facility] Last Admin: 01/07/19 10:32 Dose: 25 mg Documented by: Multivit/Ca Carb/B Cmplx/FA/Prenat (Renal Caps) 1 cap PO QDAY [facility] Last Admin: 01/07/19 10:32 Dose: 1 cap Documented by: Ondansetron HCl (Zofran Odt) 4 mg PO Q8HR PRN PRN Reason: Nausea And Vomiting Last Admin: 01/06/19 02:09 Dose: 4 mg Documented by: Ondansetron HCl (Zofran) 4 mg IV Q8H PRN PRN Reason: Nausea And Vomiting Pravastatin Sodium (Pravachol) 80 mg PO QHS [facility] Last Admin: 01/07/19 00:14 Dose: 80 mg Documented by: Sodium Chloride (Sodium Chloride Flush Syringe 10 Ml) 10 ml IV BID [facility] Last Admin: 01/07/19 10:34 Dose: 10 ml Documented by: Sodium Chloride (Sodium Chloride Flush Syringe 10 Ml) 10 ml IV PRN PRN PRN Reason: LINE FLUSH Tramadol HCl (Ultram) 50 mg PO Q6HR PRN PRN Reason: Pain, Moderate (4-6) Review of Systems All systems: negative (see HPI) Exam - Constitutional Vitals: Temp Pulse Resp BP Pulse Ox 99.2 F 62 18 117/93 100 01/07/19 07:42 01/07/19 10:34 01/07/19 07:42 01/07/19 10:34 01/07/19 03:28 General appearance: Present: no acute distress - EENT Eyes: Present: EOM intact ENT: hearing intact - Respiratory Respiratory effort: normal - Extremities Extremities: normal temperature, normal color, abnormal (no radial or ulnar pulse, thrill in the AV access at the anastomosis, but the rest of the access has no thrill or pulse) - Psychiatric Psychiatric: appropriate mood/affect, cooperative Results - Labs CBC & Chem 7: 01/06/19 08:30 01/07/19 09:13 Labs: Abnormal lab results 01/07/19 Range/Units 09:13 Sodium 134 L (137-145) mmol/L Chloride 93.0 L (98-107) mmol/L Carbon Dioxide 17 L (22-30) mmol/L BUN 60 H (9-20) mg/dL Creatinine 13.4 H (0.8-1.5) mg/dL Calcium 8.1 L (8.4-10.2) mg/dL Assessment and Plan 58-year-old male with AV access malfunction with recent TIA. Patient has right upper extremity cephalic AV fistula with arterial inflow from a high takeoff radial artery. The patient previously has had transposition of the distal radial artery to the brachial artery due to pain in the hand. Currently, although the AV fistula has a peripheral thrill, the central and midportion of the fistula has minimal flow but is still soft (not-thrombosed). Patient currently complains of hand pain, but this does not reverse with compression of the AV access and is more likely related to neuropathy. Recommend fistulogram with no sedation given recent issues and hypotension. Carotid ultrasound demonstrates less than 50% narrowing with recent TIA. Medical therapy recommended.
--- NOTE | 2019-01-07 12:48 | Post Operative Note ---
Date of procedure: 01/07/19 Pre-op diagnosis: ESRD with AV access malfunction Post-op diagnosis: same Procedure: 1. Ultrasound guided access of the right sided cephalic vein fistula towards the anastamosis 2. Selection of the axillary artery in a retrograde fashion with angiography of the right upper extremity 3. Fistulogram 4. Angioplasty of the anastamosis with a 5 mm x 20 mm cutting angioplasty balloon and 6 mm x 40 mm angioplasty balloon Anesthesia: local (no conscious sedation due to BP issues) Surgeon: MICHELLE CHANEY Estimated blood loss: minimal Condition: stable Disposition: floor
--- NOTE | 2019-01-07 12:49 | Operative Report ---
Operative Report Operative Report: EXAM: 1. Ultrasound guided access of the right sided cephalic vein fistula towards the anastamosis 2. Selection of the axillary artery in a retrograde fashion with angiography of the right upper extremity 3. Fistulogram 4. Angioplasty of the anastamosis with a 5 mm x 20 mm cutting angioplasty balloon and 6 mm x 40 mm angioplasty balloon DATE: 01/07/19 LINER ASSEMBLER: MICHELLE CHANEY MD INDICATION: AV fistula malfunction MEDICATIONS: Please see nursing report for full details. DEVICES: 5 mm x 20 mm cutting angioplasty balloon 6 mm x 40 mm angioplasty balloon PROCEDURE: The risks, benefits, and alternatives of the procedure were discussed and written informed consent was obtained. The patient was transported in stable condition to the angiography suite. The patient's right arm AV fistula was assessed by ultrasound and was patent. The patient was prepped and draped in a sterile fashion. Under ultrasound guidance, the right arm AV fistula was accessed with a 21-gauge micropuncture needle. The area was anesthetized prior to access. 0.018 inch wire was advanced through the micropuncture needle into the fistula and then the needle was exchanged for a 5 Wolof transitional dilator. The inner dilator and wire were removed and a 0.035 inch wire was advanced through the anastomosis and into the radial artery in a retrograde fashion. The transitional dilator was exchanged for a 6 Wolof short sheath. Catheter was then used to select the axillary artery. Digital subtraction angiography was performed. Catheters retracted to the radial artery. Digital subtraction angiography demonstrated an axillary artery that was patent with a high takeoff of a radial artery which had 10-20% narrowing throughout. The brachial artery was patent. There is flow seen in the diminutive ulnar and interosseous artery. There is no distal flow seen in the radial artery. The radial artery associated with the fistula was ligated distally and based on the operative notes, was transposed onto the brachial artery. This was not visualized suggesting the vessel has thrombosed. There is a 95% narrowing at the anastomosis. The rest of the fistula in the cephalic vein is patent and intermittently aneurysmal. There is no cephalic arch stenosis. The central veins are patent. There is some mild tortuosity of the central portion of the cephalic vein. 5 mm x 20 mm cutting angioplasty balloon was used to perform angioplasty of the anastomosis and this was followed by a 6 mm x 40 mm angioplasty balloon. Digital subtraction angiography demonstrated excellent flow through the anastomosis. The thrill in the AV access had significantly improved. Due to patient's hypotension, local was the only medication used in this procedure. The wire was removed and the site was closed with a 3-0 Vicryl suture. The sheath was then removed. Hemostasis was achieved with slight manual compression. The patient was transported from the angiography suite to the floor in stable condition. IMPRESSION: Successful peripheral dialysis access angioplasty, selection of the right upper extremity axillary artery, and angiography of the right upper extremity.
[2019-01-07] MEDS ORDERED: SODIUM CHLORIDE 0.9% 100 ML IV PRN ×3 (13:11→13:19)
[2019-01-07] MEDS ORDERED: ALBUMIN HUMAN 25% (25 GM/100 ML) INJ IV PRN (13:19)
[2019-01-07] MEDS ORDERED: MIDODRINE 5 MG TAB PO PRN (14:00)
--- NOTE | 2019-01-07 14:22 | Progress Note ---
Assessment and Plan Patient is a 58 y/o man w/ a h/o hypertension, coronary artery disease, hyperlipidemia, GERD, end-stage renal disease on hemodialysis, HBV, who p/w slurred speech and left sided weakness. According to the patient's clinical findings, he likely had a stroke or a TIA. Plan: 1. Stroke vs. TIA: - Check MRI/MRA- Pending, as patient has had peripheral arterial and coronary stents placed in the past, and radiology would like to confirm MRI-compatibility of stents prior to MRI. - Echo: EF 35-40%, LA normal size, bubble study not done. - CT head unremarkable - LDL 69, cont. statin - Telemetry monitoring while in house - Cont. ASA - PT/OT/ST - DVT Ppx: recommend lovenox 2. Hypertension: - Recommend BP goal of normotension, as it has been >48 hours since symptom onset. - Will continue to monitor patient. Thank you for allowing me to take part in the care of this patient. Vivek Hernandez MD Neurology Subjective Date of service: 01/07/19 Principal diagnosis: TIA Interval history: No acute events overnight. Objective - Exam Narrative Exam: Patient is awake, alert, oriented 4, follows complex commands. Pupils equal, round, reactive to light. Visual merchant full, EOMI, tongue midline, no facial weakness noted, bilaterally intact to light touch. 5/5 strength noted in all extremities. Bilaterally intact to light touch in all extremities. Bilaterally intact to finger to nose and heel to graham. 2+ reflexes throughout. Not noted to have any significant dysarthria or aphasia. - Vital Sign Vital Signs - 12hr 01/07/19 01/07/19 01/07/19 03:28 07:42 10:00 Temperature 98.7 F 99.2 F Pulse Rate 68 Pulse Rate [ 68 Apical] Pulse Rate [ 68 Left Radial] Pulse Rate [ 68 Right Radial] Respiratory 18 18 19 Rate Blood Pressure 80/40 136/106 O2 Sat by Pulse 100 98 Oximetry 01/07/19 01/07/19 01/07/19 10:32 10:33 10:34 Temperature Pulse Rate 62 62 62 Pulse Rate [ Apical] Pulse Rate [ Left Radial] Pulse Rate [ Right Radial] Respiratory Rate Blood Pressure 117/93 117/93 117/93 O2 Sat by Pulse Oximetry - General Apperance Constitutional: comfortable - EENT EENT: ATNC, PERRL, mucous membranes moist, hearing intact, vision intact - Respiratory Respiratory: lungs clear, normal breath sounds - Cardiovascular Cardiovascular: regular rate, normal S1, normal S2 Extremities: no clubbing, cyanosis, no inflammation - Gastrointestinal Gastrointestinal: normoactive bowel sounds, soft, non-tender - Integumentary Integumentary: normal - Musculoskeletal Musculoskeletal: no fluid collection, no pain - Psychiatric Psychiatric: mood/affect appropriate - Laboratory Findings CBC and BMP: 01/06/19 08:30 01/07/19 09:13 Abnormal Lab Findings: Abnormal Labs 01/05/19 01/05/19 01/05/19 11:18 11:18 11:18 RBC 3.53 L Hgb 10.3 L Hct 30.7 L RDW 19.9 H Plt Count 69 L Lymph % (Auto) [place] % (Auto) Lymph # [place] # Seg Neutrophils % Seg Neuts % (Manual) 72.0 H Monocytes % (Manual) 10.0 H Seg Neutrophils # Monocytes # (Manual) 0.9 H INR 1.17 H APTT 36.8 H VBG pH 7.497 H Sodium Potassium Chloride Carbon Dioxide BUN Creatinine Glucose Calcium Total Bilirubin Direct Bilirubin Troponin T Total Protein Albumin HDL Cholesterol 01/05/19 01/06/19 01/06/19 11:18 08:30 08:30 RBC Hgb 10.9 L Hct 32.9 L RDW 20.2 H Plt Count 68 L Lymph % (Auto) 8.6 L [place] % (Auto) 13.1 H Lymph # 0.9 L [place] # 1.4 H Seg Neutrophils % 77.6 H Seg Neuts % (Manual) Monocytes % (Manual) Seg Neutrophils # 8.2 H Monocytes # (Manual) INR APTT VBG pH Sodium 132 L 133 L Potassium 3.3 L Chloride 92.6 L 92.2 L Carbon Dioxide 19 L 18 L BUN 32 H 48 H Creatinine 9.6 H 12.0 H Glucose 102 H Calcium 7.9 L 8.3 L Total Bilirubin 1.60 H 1.60 H Direct Bilirubin 0.7 H Troponin T 0.380 H* Total Protein 8.5 H 8.6 H Albumin 3.8 L 3.5 L HDL Cholesterol 34 L 01/07/19 09:13 RBC Hgb Hct RDW Plt Count Lymph % (Auto) [place] % (Auto) Lymph # [place] # Seg Neutrophils % Seg Neuts % (Manual) Monocytes % (Manual) Seg Neutrophils # Monocytes # (Manual) INR APTT VBG pH Sodium 134 L Potassium Chloride 93.0 L Carbon Dioxide 17 L BUN 60 H Creatinine 13.4 H Glucose Calcium 8.1 L Total Bilirubin Direct Bilirubin Troponin T Total Protein Albumin HDL Cholesterol
[2019-01-07 15:56] LABS: Hepatitis B Surface Antigen Reactive (Negative); Hepatitis C Virus Antibody Non-Reactive (NonReactive)
[2019-01-07] MEDS ORDERED: VANCOMYCIN/NS 1 GM/250 ML 1 GM/250 ML BAG IV SCH ×2 (20:00)
[2019-01-07] MEDS: MIDODRINE 5 MG TAB PO SCH (22:10)
[2019-01-07] MEDS: ONDANSETRON 4 MG ODT TAB PO PRN (22:14)
[2019-01-08] MEDS ORDERED: SODIUM CHLORIDE 0.9% 100 ML IV PRN (08:39)
[2019-01-08] MEDS: METOCLOPRAMIDE 10 MG TAB PO SCH ×3 (08:58→22:41)
[2019-01-08] MEDS: MIDODRINE 5 MG TAB PO SCH ×3 (08:59→22:41)
[2019-01-08] MEDS: FAMOTIDINE 10 MG TAB PO SCH ×2 (09:00→22:41)
[2019-01-08] MEDS: CALCIUM ACETATE 667 MG CAP PO SCH ×3 (09:00→22:42)
[2019-01-08] MEDS: ASPIRIN EC 81 MG TAB PO SCH (09:00)
[2019-01-08] MEDS: FOLIC ACID/VIT B COMP W-C 1 MG (RENAL CAPS) PO SCH (09:00)
--- NOTE | 2019-01-08 09:02 | Progress Note ---
Assessment and Plan 1. ESRD: Continue hemodialysis three times a week, MWF schedule. Hemodialysis: 01/07, 01/08. 2. FEN: Metabolic acidosis, HD today. Renal diet. Monitor. 3. Malfunctioning AVF: S/p angioplasty. 4. Hypotension: On Midodrine. 5. Suspected acute CVA. 6. Pneumonia: Continue Abx. 7. DM type 2. 8. HTN. 9. Anemia: POA. Monitor. Epogen if needed. 10. Thrombocytopenia: POA, chronic. 11. PAD. Examination: General appearance: well-developed, appears stated age, not in distress HEENT: ATNC, ROLLY, hearing intact, vision intact Neck: neck supple, trachea midline Respiratory: Clear to Ascultation Heart: regular, S1S2, no murmurs Gastrointestinal: normoactive bowel sounds, not tender, not distended Integumentary: no rash, warm and dry Neurologic: no focal deficit, no asterixis, alert and oriented x3 Musculoskeletal: b/l TMA Ext: No edema Hemodialysis access: R arm AVF, bruit noted Subjective Date of service: 01/08/19 Principal diagnosis: TIA Interval history: Patient was seen and examined at the bedside. No new complaint. Objective - Vital Signs Vital signs: Vital Signs - 12hr 01/08/19 01/08/19 01/08/19 00:01 04:47 08:10 Temperature 98.8 F 97.6 F 98.1 F Pulse Rate 88 77 Respiratory 17 17 18 Rate Blood Pressure 104/33 107/41 103/80 O2 Sat by Pulse 95 98 Oximetry 01/08/19 08:19 Temperature 98.4 F Pulse Rate Respiratory 18 Rate Blood Pressure 114/64 O2 Sat by Pulse Oximetry - Lab 01/06/19 08:30 01/07/19 09:13 Most recent lab results Calcium 8.1 mg/dL (8.4-10.2) L 01/07/19 09:13 Magnesium 1.80 mg/dL (1.7-2.3) 01/05/19 11:18 Medications & Allergies - Medications Allergies/Adverse Reactions: Allergies metformin Adverse Reaction (Verified 03/30/16 09:16) "SPOT ON LIVER" Home Medications: Home Medications Medication Instructions Recorded Confirmed Last Taken Type HYDROcodone/APAP 10-325 [[place] 1 each PO Q6HR PRN #20 tablet 06/10/13 01/07/19 07/03/16 19:00 Rx 10-325 mg TAB] Vit B Comp No.3/Folic/C/Biotin 1 tab PO TID 06/10/13 01/07/19 06/30/16 17:00 History [Dari-Norah Rx Tablet] Aspirin EC [Halfprin EC] 81 mg PO QDAY 12/16/15 01/07/19 07/04/16 05:00 History Calcium Acetate [Phoslo] 667 mg PO TID 12/16/15 01/07/19 06/30/16 17:00 History Calcium Carbonate [Tums Ultra 1,177 mg PO TID 12/16/15 01/07/19 07/03/16 21:00 History Strength 1177MG CHEW] Ergocalciferol [Vitamin D2] 1 cap PO QWEEK 12/16/15 01/07/19 06/28/16 09:00 History ISOSORBIDE MONOnitrate [Imdur ER] 30 mg PO DAILY #30 tab.er.24h 12/16/15 01/07/19 07/03/16 08:00 Rx Losartan [Cozaar] 25 mg PO QDAY #30 tablet 12/16/15 01/07/19 07/03/16 08:00 Rx Metoprolol Xl [Metoprolol 25 mg PO QDAY #30 tablet 12/16/15 01/07/19 07/04/16 07:30 Rx SUCCINATE ER TAB] Simvastatin [Zocor TAB] 40 mg PO QHS #30 tablet 12/16/15 01/07/19 06/30/16 21:00 Rx Dexlansoprazole [Dexilant] 60 mg PO QDAY #30 cap.dr.bp 09/28/18 01/07/19 Unknown Rx Metoclopramide [Reglan] 10 mg PO TID #60 tab 09/28/18 01/07/19 Unknown Rx Ondansetron [Zofran Odt] 4 mg PO Q8HR PRN #14 tab.rapdis 11/10/18 01/07/19 Unknown Rx traMADoL [Ultram] 50 mg PO Q6HR PRN #14 tablet 11/10/18 01/07/19 Unknown Rx Active Medications: Generic Name Dose Route Start Last Admin Trade Name Freq PRN Reason Stop Dose Admin Acetaminophen 650 mg 01/05/19 21:55 01/07/19 00:14 Tylenol PO 650 mg Q4H PRN Administration Pain MILD(1-3)/Fever >100.5/CORONADO Acetaminophen/Hydrocodone Bitart 1 each 01/05/19 21:53 [place] 10/325 PO Q6HR PRN Pain, Moderate (4-6) Albumin Human 25 gm 01/07/19 13:19 01/07/19 17:00 Alburx 25% (Albumin) IV 25 gm KIKA PRN Administration Hypotension Aspirin 81 mg 01/05/19 22:00 01/08/19 09:00 Halfprin Ec PO 81 mg QDAY JOSH Administration Atorvastatin Calcium 40 mg 01/07/19 22:00 01/07/19 22:09 Lipitor PO 40 mg QHS JOSH Administration Calcium Acetate 667 mg 01/06/19 08:00 01/08/19 09:00 Phoslo PO 667 mg TIDWM JOSH Administration Famotidine 10 mg 01/05/19 22:00 01/08/19 09:00 Pepcid PO 10 mg BID JOSH Administration Hydromorphone HCl 0.5 mg 01/05/19 21:55 Dilaudid IV Q3H PRN Pain , Severe (7-10) Azithromycin 500 mg/ Sodium 250 mls @ 250 mls/hr 01/06/19 10:00 01/07/19 10:43 Chloride IV 250 mls/hr Q24HR JOSH Administration Protocol Sodium Chloride 100 mls @ 999 mls/hr 01/08/19 08:39 Nacl 0.9% IV KIKA PRN Hypotension Isosorbide Mononitrate 30 mg 01/06/19 10:00 01/07/19 10:34 Imdur PO Not Given DAILY JOSH Metoclopramide HCl 5 mg 01/06/19 07:30 01/08/19 08:58 Reglan PO 5 mg TIDAC JOSH Administration Metoprolol Succinate 25 mg 01/06/19 10:00 01/07/19 10:32 Metoprolol Xl PO 25 mg QDAY JOSH Administration Midodrine 10 mg 01/07/19 14:00 01/07/19 15:10 Proamatine PO 10 mg KIKA PRN Administration Hypertension Midodrine 10 mg 01/07/19 20:00 01/08/19 08:59 Proamatine PO 10 mg TID JOSH Administration Multivit/Ca Carb/B Cmplx/FA/Prenat 1 cap 01/06/19 10:00 01/08/19 09:00 Renal Caps PO 1 cap QDAY JOSH Administration Ondansetron HCl 4 mg 01/05/19 21:53 01/07/19 22:14 Zofran Odt PO 4 mg Q8HR PRN Administration Nausea And Vomiting Ondansetron HCl 4 mg 01/05/19 21:55 Zofran IV Q8H PRN Nausea And Vomiting Pravastatin Sodium 80 mg 01/05/19 22:00 01/07/19 22:10 Pravachol PO 80 mg QHS JOSH Administration Sodium Chloride 10 ml 01/05/19 22:00 01/08/19 09:00 Sodium Chloride Flush Syringe 10 Ml IV 10 ml BID JOSH Administration Sodium Chloride 10 ml 01/08/19 08:50 Sodium Chloride Flush Syringe 10 Ml IV PRN PRN LINE FLUSH Tramadol HCl 50 mg 01/05/19 21:53 Ultram PO Q6HR PRN Pain, Moderate (4-6)
[2019-01-08] MEDS: AZITHROMYCIN 500 MG in SODIUM CHLORIDE 0.9% 250ML 250 ML IV SCH (10:24)
[2019-01-08] MEDS: METOPROLOL SUCCINATE XL 25 MG TAB PO SCH (11:04)
--- NOTE | 2019-01-08 12:22 | Progress Note ---
Assessment and Plan Assessment and plan: Patient 58-year-old male with a history of end-stage renal disease, hypertension and coronary disease tobacco abuse presents with slurred speech and left upper extremity weakness that began approximately 8 AM. Patient also had a temperature 101.3 and was hypotensive. Initial evaluation chest x-ray found patient to have left lower lobe pneumonia. Also had left-sided weakness. At present patient is awake alert and follows commands no evidence of weakness on extremities at this particular time patient speaks clearly. of emre bedside state patient is at baseline. Only little weaker. - Patient Problems (1) Left-sided weakness Current Visit: Yes Status: Acute Plan to address problem: Patient with left sided weakness see below CVA. (2) CVA (cerebral vascular accident) Current Visit: Yes Status: Acute Qualifiers: CVA mechanism: unspecified Qualified Code(s): I63.9 - Cerebral infarction, unspecified Plan to address problem: CVA versus TIA. Left extremity weakness has resolved. CT scan only shows chronic ischemic changes. MRI cannot be performed as of yet secondary to stent placement in heart. Symptoms of weakness has resolved now. Could be all secondary to sepsis and pneumonia as well. Discussed with family, awaiting for records Also discussed with Neurology (3) End stage renal disease on dialysis Current Visit: Yes Status: Acute Plan to address problem: Patient requires hemodialysis we'll obtain renal consult for hemodialysis. DIalysis catheter being replaced today due to clotted access (4) Febrile illness, acute Current Visit: Yes Status: Acute Plan to address problem: Sepsis septic shock. Secondary to pneumonia. (5) End-stage renal disease needing dialysis Current Visit: No Status: Acute (6) Septic shock Current Visit: Yes Status: Acute Plan to address problem: Patient was septic shock fever 102 hypotensive with clear etiology including left lower lobe pneumonia. We'll add vancomycin as well possibility of line sepsis. His processes patient is been noncompliant. Follow culture data. Supportive care hemodialysis and fluid if required. If patient develops persistent hypo-tension we'll transfer to ICU. (7) Coronary artery disease Current Visit: Yes Status: Acute Plan to address problem: Agent presently chest pain-free on Imdur afterload media services specialist. History Interval history: Patient seen and examined, resting comfortable in no acute distress, awaiting information for the stents Hospitalist Physical - Physical exam Narrative exam: General appearance: Present: no acute distress, cachectic - EENT Eyes: Present: PERRL, EOM intact, irregular pupil - Neck Neck: Present: supple, normal ROM - Respiratory Respiratory effort: normal Respiratory: bilateral: CTA - Cardiovascular Rhythm: regular Heart Sounds: Present: S1 & S2 - Extremities Extremities: no ischemia, pulses intact, pulses symmetrical, No edema, normal temperature Peripheral Pulses: within normal limits - Abdominal General gastrointestinal: soft, non-tender, non-distended, hypoactive bowel sounds - Integumentary Integumentary: Present: clear, warm, dry - Psychiatric Psychiatric: appropriate mood/affect, intact judgment & insight, cooperative - Neurologic Neurologic: CNII-XII intact, moves all extremities - Constitutional Vitals: Temp Pulse Resp BP Pulse Ox 98.4 F 74 18 100/73 98 01/08/19 08:19 01/08/19 11:04 01/08/19 08:19 01/08/19 11:04 01/08/19 04:47 General appearance: Present: no acute distress, cachectic Results - Labs CBC & Chem 7: 01/06/19 08:30 01/09/19 05:16 Labs: Laboratory Last Values WBC 10.6 K/mm3 (4.5-11.0) 01/06/19 08:30 RBC 3.76 M/mm3 (3.65-5.03) 01/06/19 08:30 Hgb 10.9 gm/dl (11.8-15.2) L 01/06/19 08:30 Hct 32.9 % (35.5-45.6) L 01/06/19 08:30 MCV 88 fl (84-94) 01/06/19 08:30 MCH 29 pg (28-32) 01/06/19 08:30 MCHC 33 % (32-34) 01/06/19 08:30 RDW 20.2 % (13.2-15.2) H 01/06/19 08:30 Plt Count 68 K/mm3 (140-440) L 01/06/19 08:30 Lymph % (Auto) 8.6 % (13.4-35.0) L 01/06/19 08:30 [place] % (Auto) 13.1 % (0.0-7.3) H 01/06/19 08:30 Eos % (Auto) 0.2 % (0.0-4.3) 01/06/19 08:30 Baso % (Auto) 0.5 % (0.0-1.8) 01/06/19 08:30 Lymph # 0.9 K/mm3 (1.2-5.4) L 01/06/19 08:30 [place] # 1.4 K/mm3 (0.0-0.8) H 01/06/19 08:30 Eos # 0.0 K/mm3 (0.0-0.4) 01/06/19 08:30 Baso # 0.1 K/mm3 (0.0-0.1) 01/06/19 08:30 Add Manual Diff Complete 01/05/19 11:18 Total Counted 100 01/05/19 11:18 Seg Neutrophils % 77.6 % (40.0-70.0) H 01/06/19 08:30 Seg Neuts % (Manual) 72.0 % (40.0-70.0) H 01/05/19 11:18 Band Neutrophils % 0 % 01/05/19 11:18 Lymphocytes % (Manual) 18.0 % (13.4-35.0) 01/05/19 11:18 Reactive Lymphs % (Man) 0 % 01/05/19 11:18 Monocytes % (Manual) 10.0 % (0.0-7.3) H 01/05/19 11:18 Eosinophils % (Manual) 0 % (0.0-4.3) 01/05/19 11:18 Basophils % (Manual) 0 % (0.0-1.8) 01/05/19 11:18 Metamyelocytes % 0 % 01/05/19 11:18 Myelocytes % 0 % 01/05/19 11:18 Promyelocytes % 0 % 01/05/19 11:18 Blast Cells % 0 % 01/05/19 11:18 Nucleated RBC % Not Reportable 01/05/19 11:18 Seg Neutrophils # 8.2 K/mm3 (1.8-7.7) H 01/06/19 08:30 Seg Neutrophils # Man 6.2 K/mm3 (1.8-7.7) 01/05/19 11:18 Band Neutrophils # 0.0 K/mm3 01/05/19 11:18 Lymphocytes # (Manual) 1.5 K/mm3 (1.2-5.4) 01/05/19 11:18 Abs React Lymphs (Man) 0.0 K/mm3 01/05/19 11:18 Monocytes # (Manual) 0.9 K/mm3 (0.0-0.8) H 01/05/19 11:18 Eosinophils # (Manual) 0.0 K/mm3 (0.0-0.4) 01/05/19 11:18 Basophils # (Manual) 0.0 K/mm3 (0.0-0.1) 01/05/19 11:18 Metamyelocytes # 0.0 K/mm3 01/05/19 11:18 Myelocytes # 0.0 K/mm3 01/05/19 11:18 Promyelocytes # 0.0 K/mm3 01/05/19 11:18 Blast Cells # 0.0 K/mm3 01/05/19 11:18 WBC Morphology Not Reportable 01/05/19 11:18 Hypersegmented Neuts Not Reportable 01/05/19 11:18 Hyposegmented Neuts Not Reportable 01/05/19 11:18 Hypogranular Neuts Not Reportable 01/05/19 11:18 Smudge Cells Not Reportable 01/05/19 11:18 Toxic Granulation Not Reportable 01/05/19 11:18 Toxic Vacuolation Not Reportable 01/05/19 11:18 Dohle Bodies Not Reportable 01/05/19 11:18 Pelger-Huet Anomaly Not Reportable 01/05/19 11:18 Gustavo Rods Not Reportable 01/05/19 11:18 Platelet Estimate Consistent w auto 01/05/19 11:18 Clumped Platelets Not Reportable 01/05/19 11:18 Plt Clumps, EDTA Not Reportable 01/05/19 11:18 Large Platelets Not Reportable 01/05/19 11:18 Giant Platelets Rare 01/05/19 11:18 Platelet Satelliting Not Reportable 01/05/19 11:18 Plt Morphology Comment Not Reportable 01/05/19 11:18 RBC Morphology Not Reportable 01/05/19 11:18 Dimorphic RBCs Not Reportable 01/05/19 11:18 Polychromasia Not Reportable 01/05/19 11:18 Hypochromasia Not Reportable 01/05/19 11:18 Poikilocytosis Not Reportable 01/05/19 11:18 Anisocytosis 1+ 01/05/19 11:18 Microcytosis Few 01/05/19 11:18 Macrocytosis Not Reportable 01/05/19 11:18 Spherocytes Not Reportable 01/05/19 11:18 Pappenheimer Bodies Not Reportable 01/05/19 11:18 Sickle Cells Not Reportable 01/05/19 11:18 Target Cells Not Reportable 01/05/19 11:18 Tear Drop Cells Not Reportable 01/05/19 11:18 Ovalocytes Not Reportable 01/05/19 11:18 Helmet Cells Not Reportable 01/05/19 11:18 [place] Bodies Not Reportable 01/05/19 11:18 [place] Rings Not Reportable 01/05/19 11:18 Wells Cells Not Reportable 01/05/19 11:18 Bite Cells Not Reportable 01/05/19 11:18 Crenated Cell Not Reportable 01/05/19 11:18 Elliptocytes Not Reportable 01/05/19 11:18 Acanthocytes (Spur) Not Reportable 01/05/19 11:18 Rouleaux Not Reportable 01/05/19 11:18 Hemoglobin C Crystals Not Reportable 01/05/19 11:18 Schistocytes Not Reportable 01/05/19 11:18 Malaria parasites Not Reportable 01/05/19 11:18 [place] Bodies Not Reportable 01/05/19 11:18 Hem Pathologist Commnt No 01/05/19 11:18 PT 14.8 Sec. (12.2-14.9) 01/05/19 11:18 INR 1.17 (0.87-1.13) H 01/05/19 11:18 APTT 36.8 Sec. (24.2-36.6) H 01/05/19 11:18 VBG pH 7.497 (7.320-7.420) H 01/05/19 11:18 Sodium 134 mmol/L (137-145) L 01/07/19 09:13 Potassium 3.8 mmol/L (3.6-5.0) 01/07/19 09:13 Chloride 93.0 mmol/L (98-107) L 01/07/19 09:13 Carbon Dioxide 17 mmol/L (22-30) L 01/07/19 09:13 Anion Gap 28 mmol/L 01/07/19 09:13 BUN 60 mg/dL (9-20) H 01/07/19 09:13 Creatinine 13.4 mg/dL (0.8-1.5) H 01/07/19 09:13 Estimated GFR 5 ml/min 01/07/19 09:13 BUN/Creatinine Ratio 4 % 01/07/19 09:13 Glucose 82 mg/dL (75-100) 01/07/19 09:13 POC Glucose 93 (70-105) 01/05/19 12:02 Hemoglobin A1c 5.5 % (4-6) 01/05/19 23:09 Lactic Acid 1.80 mmol/L (0.7-2.0) 01/05/19 14:41 Calcium 8.1 mg/dL (8.4-10.2) L 01/07/19 09:13 Magnesium 1.80 mg/dL (1.7-2.3) 01/05/19 11:18 Total Bilirubin 1.60 mg/dL (0.1-1.2) H 01/06/19 08:30 Direct Bilirubin 0.7 mg/dL (0-0.2) H 01/05/19 11:18 Indirect Bilirubin 0.9 mg/dL 01/05/19 11:18 AST 29 units/L (5-40) 01/06/19 08:30 ALT 40 units/L (7-56) 01/06/19 08:30 Alkaline Phosphatase 89 units/L (35-129) 01/06/19 08:30 Ammonia 40.0 umol/L (25-60) 01/05/19 14:41 Total Creatine Kinase 157 units/L (55-170) 01/05/19 11:18 CK-MB (CK-2) < 1.0 ng/mL (0.0-4.0) 01/05/19 11:18 CK-MB (CK-2) Rel Index 0.6 (0-4) 01/05/19 11:18 Troponin T 0.380 ng/mL (0.00-0.029) H* 01/05/19 11:18 Total Protein 8.6 g/dL (6.3-8.2) H 01/06/19 08:30 Albumin 3.5 g/dL (3.9-5) L 01/06/19 08:30 Albumin/Globulin Ratio 0.7 % 01/06/19 08:30 Triglycerides 108 mg/dL (2-149) 01/05/19 11:18 Cholesterol 123 mg/dL (50-199) 01/05/19 11:18 LDL Cholesterol Direct 69 mg/dL (50-130) 01/05/19 11:18 HDL Cholesterol 34 mg/dL (40-59) L 01/05/19 11:18 Cholesterol/HDL Ratio 3.61 % 01/05/19 11:18 Random Vancomycin 16.7 ug/mL (0-40.0) 01/07/19 09:13 Hepatitis A IgM Ab Non-reactive (NonReactive) 01/07/19 14:38 Hep Bs Antigen Reactive (Negative) 01/07/19 14:38 Hep B Core IgM Ab Reactive (NonReactive) A 01/07/19 14:38 Hepatitis C Antibody Non-reactive (NonReactive) 01/07/19 14:38 Active Medications - Current Medications Current Medications: Generic Name Dose Route Start Last Admin Trade Name Freq PRN Reason Stop Dose Admin Acetaminophen 650 mg 01/05/19 21:55 01/07/19 00:14 Tylenol PO 650 mg Q4H PRN Administration Pain MILD(1-3)/Fever >100.5/CORONADO Acetaminophen/Hydrocodone Bitart 1 each 01/05/19 21:53 [place] 10/325 PO Q6HR PRN Pain, Moderate (4-6) Albumin Human 25 gm 01/07/19 13:19 01/07/19 17:00 Alburx 25% (Albumin) IV 25 gm KIKA PRN Administration Hypotension Aspirin 81 mg 01/05/19 22:00 01/08/19 09:00 Halfprin Ec PO 81 mg QDAY JOSH Administration Atorvastatin Calcium 40 mg 01/07/19 22:00 01/07/19 22:09 Lipitor PO 40 mg QHS JOSH Administration Calcium Acetate 667 mg 01/06/19 08:00 01/08/19 11:26 Phoslo PO 667 mg TIDWM JOSH Administration Famotidine 10 mg 01/05/19 22:00 01/08/19 09:00 Pepcid PO 10 mg BID JOSH Administration Hydromorphone HCl 0.5 mg 01/05/19 21:55 Dilaudid IV Q3H PRN Pain , Severe (7-10) Azithromycin 500 mg/ Sodium 250 mls @ 250 mls/hr 01/06/19 10:00 01/08/19 10:24 Chloride IV 250 mls/hr Q24HR JOSH Administration Protocol Sodium Chloride 100 mls @ 999 mls/hr 01/08/19 08:39 Nacl 0.9% IV KIKA PRN Hypotension Isosorbide Mononitrate 30 mg 01/06/19 10:00 01/08/19 11:03 Imdur PO Not Given DAILY JOSH Metoclopramide HCl 5 mg 01/06/19 07:30 01/08/19 11:26 Reglan PO 5 mg TIDAC JOSH Administration Metoprolol Succinate 25 mg 01/06/19 10:00 01/08/19 11:04 Metoprolol Xl PO Not Given QDAY JOSH Midodrine 10 mg 01/07/19 14:00 01/07/19 15:10 Proamatine PO 10 mg KIKA PRN Administration Hypertension Midodrine 10 mg 01/07/19 20:00 01/08/19 08:59 Proamatine PO 10 mg TID JOSH Administration Multivit/Ca Carb/B Cmplx/FA/Prenat 1 cap 01/06/19 10:00 01/08/19 09:00 Renal Caps PO 1 cap QDAY JOSH Administration Ondansetron HCl 4 mg 01/05/19 21:53 01/07/19 22:14 Zofran Odt PO 4 mg Q8HR PRN Administration Nausea And Vomiting Ondansetron HCl 4 mg 01/05/19 21:55 Zofran IV Q8H PRN Nausea And Vomiting Pravastatin Sodium 80 mg 01/05/19 22:00 01/07/19 22:10 Pravachol PO 80 mg QHS JOSH Administration Sodium Chloride 10 ml 01/05/19 22:00 01/08/19 09:00 Sodium Chloride Flush Syringe 10 Ml IV 10 ml BID JOSH Administration Sodium Chloride 10 ml 01/08/19 08:50 Sodium Chloride Flush Syringe 10 Ml IV PRN PRN LINE FLUSH Tramadol HCl 50 mg 01/05/19 21:53 Ultram PO Q6HR PRN Pain, Moderate (4-6)
--- NOTE | 2019-01-08 13:40 | Progress Note ---
Assessment and Plan Patient is a 58 y/o man w/ a h/o hypertension, coronary artery disease, hyperlipidemia, GERD, end-stage renal disease on hemodialysis, HBV, who p/w slurred speech and left sided weakness. According to the patient's clinical findings, he likely had a stroke or a TIA. Plan: 1. Stroke vs. TIA: - Check MRI/MRA- Pending, as patient has had peripheral arterial and coronary stents placed in the past, and radiology would like to confirm MRI-compatibility of stents prior to MRI. Awaiting outside records regarding stents, prior to MRI. - Echo: EF 35-40%, LA normal size, bubble study not done. - CT head unremarkable - LDL 69, cont. statin - Telemetry monitoring while in house - Cont. ASA - PT/OT/ST - DVT Ppx: recommend lovenox 2. Hypertension: - Recommend BP goal of normotension, as it has been >48 hours since symptom onset. - Will continue to monitor patient. Thank you for allowing me to take part in the care of this patient. Vivek Hernandez MD Neurology Subjective Date of service: 01/08/19 Principal diagnosis: TIA Interval history: No acute events overnight. Objective - Exam Narrative Exam: Patient is awake, alert, oriented 4, follows complex commands. Pupils equal, round, reactive to light. Visual merchant full, EOMI, tongue midline, no facial weakness noted, bilaterally intact to light touch. 5/5 strength noted in all extremities. Bilaterally intact to light touch in all extremities. Bilaterally intact to finger to nose and heel to graham. 2+ reflexes throughout. Not noted to have any significant dysarthria or aphasia. - Vital Sign Vital Signs - 12hr 01/08/19 01/08/19 01/08/19 04:47 08:10 08:19 Temperature 97.6 F 98.1 F 98.4 F Pulse Rate 77 Respiratory 17 18 18 Rate Blood Pressure 107/41 103/80 114/64 O2 Sat by Pulse 98 Oximetry 01/08/19 01/08/19 11:03 11:04 Temperature Pulse Rate 64 74 Respiratory Rate Blood Pressure 100/73 100/73 O2 Sat by Pulse Oximetry - General Apperance Constitutional: comfortable - EENT EENT: ATNC, PERRL, mucous membranes moist, hearing intact, vision intact - Respiratory Respiratory: lungs clear, normal breath sounds - Cardiovascular Cardiovascular: regular rate, normal S1, normal S2 Extremities: no clubbing, cyanosis, no inflammation - Gastrointestinal Gastrointestinal: normoactive bowel sounds, soft, non-tender - Integumentary Integumentary: normal - Musculoskeletal Musculoskeletal: no fluid collection, no pain - Psychiatric Psychiatric: mood/affect appropriate - Laboratory Findings CBC and BMP: 01/06/19 08:30 01/07/19 09:13 Abnormal Lab Findings: Abnormal Labs 01/05/19 01/05/19 01/05/19 11:18 11:18 11:18 RBC 3.53 L Hgb 10.3 L Hct 30.7 L RDW 19.9 H Plt Count 69 L Lymph % (Auto) [place] % (Auto) Lymph # [place] # Seg Neutrophils % Seg Neuts % (Manual) 72.0 H Monocytes % (Manual) 10.0 H Seg Neutrophils # Monocytes # (Manual) 0.9 H INR 1.17 H APTT 36.8 H VBG pH 7.497 H Sodium Potassium Chloride Carbon Dioxide BUN Creatinine Glucose Calcium Total Bilirubin Direct Bilirubin Troponin T Total Protein Albumin HDL Cholesterol Hep B Core IgM Ab 01/05/19 01/06/19 01/06/19 11:18 08:30 08:30 RBC Hgb 10.9 L Hct 32.9 L RDW 20.2 H Plt Count 68 L Lymph % (Auto) 8.6 L [place] % (Auto) 13.1 H Lymph # 0.9 L [place] # 1.4 H Seg Neutrophils % 77.6 H Seg Neuts % (Manual) Monocytes % (Manual) Seg Neutrophils # 8.2 H Monocytes # (Manual) INR APTT VBG pH Sodium 132 L 133 L Potassium 3.3 L Chloride 92.6 L 92.2 L Carbon Dioxide 19 L 18 L BUN 32 H 48 H Creatinine 9.6 H 12.0 H Glucose 102 H Calcium 7.9 L 8.3 L Total Bilirubin 1.60 H 1.60 H Direct Bilirubin 0.7 H Troponin T 0.380 H* Total Protein 8.5 H 8.6 H Albumin 3.8 L 3.5 L HDL Cholesterol 34 L Hep B Core IgM Ab 01/07/19 01/07/19 09:13 14:38 RBC Hgb Hct RDW Plt Count Lymph % (Auto) [place] % (Auto) Lymph # [place] # Seg Neutrophils % Seg Neuts % (Manual) Monocytes % (Manual) Seg Neutrophils # Monocytes # (Manual) INR APTT VBG pH Sodium 134 L Potassium Chloride 93.0 L Carbon Dioxide 17 L BUN 60 H Creatinine 13.4 H Glucose Calcium 8.1 L Total Bilirubin Direct Bilirubin Troponin T Total Protein Albumin HDL Cholesterol Hep B Core IgM Ab Reactive A
[2019-01-08] MEDS ORDERED: SODIUM CHLORIDE*PRIMING MACHINE ONLY FOR DIALYSIS MC ONE (21:26)
[2019-01-08] MEDS: PRAVASTATIN 80 MG TAB PO SCH (22:46)
[2019-01-09 06:10] LABS: Calcium 9.7 mg/dL (8.4-10.2)
[2019-01-09] MEDS: METOCLOPRAMIDE 10 MG TAB PO SCH ×2 (08:00→11:26)
[2019-01-09] MEDS: MIDODRINE 5 MG TAB PO SCH (08:41)
[2019-01-09] MEDS: CALCIUM ACETATE 667 MG CAP PO SCH ×2 (08:50→11:26)
[2019-01-09] MEDS: ASPIRIN EC 81 MG TAB PO SCH (09:25)
[2019-01-09] MEDS: METOPROLOL SUCCINATE XL 25 MG TAB PO SCH (09:25)
[2019-01-09] MEDS: FOLIC ACID/VIT B COMP W-C 1 MG (RENAL CAPS) PO SCH (09:25)
[2019-01-09] MEDS: FAMOTIDINE 10 MG TAB PO SCH (09:25)
[2019-01-09 09:26] VITALS: BP 94/72
[2019-01-09] MEDS: AZITHROMYCIN 500 MG in SODIUM CHLORIDE 0.9% 250ML 250 ML IV SCH (09:26)
--- NOTE | 2019-01-09 11:38 | Progress Note ---
Assessment and Plan 1. ESRD: Continue hemodialysis three times a week, MWF schedule. Hemodialysis: 01/07, 01/08. 2. FEN: Metabolic acidosis, improved. Renal diet. Monitor. 3. Malfunctioning AVF: S/p angioplasty. 4. Hypotension: On Midodrine. 5. Suspected acute CVA. 6. Pneumonia: Continue Abx. 7. DM type 2. 8. Anemia: POA. Monitor. Epogen if needed. 9. Thrombocytopenia: POA, chronic. 10. PAD. Examination: General appearance: well-developed, appears stated age, not in distress HEENT: ATNC, ROLLY, hearing intact, vision intact Neck: neck supple, trachea midline Respiratory: Clear to Ascultation Heart: regular, S1S2, no murmurs Gastrointestinal: normoactive bowel sounds, not tender, not distended Integumentary: no rash, warm and dry Neurologic: no focal deficit, no asterixis, alert and oriented x3 Musculoskeletal: b/l TMA Ext: No edema Hemodialysis access: R arm AVF, bruit noted Subjective Date of service: 01/09/19 Principal diagnosis: TIA Interval history: Patient was seen and examined at the bedside. Doing ok. Objective - Vital Signs Vital signs: Vital Signs - 12hr 01/09/19 01/09/19 01/09/19 03:21 08:20 09:25 Temperature 97.7 F 98.2 F Pulse Rate 65 65 67 Respiratory 16 18 Rate Blood Pressure 100/28 79/15 94/72 O2 Sat by Pulse 94 92 Oximetry 01/09/19 09:26 Temperature Pulse Rate 74 Respiratory Rate Blood Pressure 94/72 O2 Sat by Pulse Oximetry - Lab 01/06/19 08:30 01/09/19 05:16 Most recent lab results Calcium 9.7 mg/dL (8.4-10.2) D 01/09/19 05:16 Magnesium 1.80 mg/dL (1.7-2.3) 01/05/19 11:18 Medications & Allergies - Medications Allergies/Adverse Reactions: Allergies metformin Adverse Reaction (Verified 03/30/16 09:16) "SPOT ON LIVER" Home Medications: Home Medications Medication Instructions Recorded Confirmed Last Taken Type HYDROcodone/APAP 10-325 [[place] 1 each PO Q6HR PRN #20 tablet 06/10/13 01/07/19 07/03/16 19:00 Rx 10-325 mg TAB] Vit B Comp No.3/Folic/C/Biotin 1 tab PO TID 06/10/13 01/07/19 06/30/16 17:00 History [[place] Rx Tablet] Aspirin EC [Halfprin EC] 81 mg PO QDAY 12/16/15 01/07/19 07/04/16 05:00 History Calcium Acetate [Phoslo] 667 mg PO TID 12/16/15 01/07/19 06/30/16 17:00 History Calcium Carbonate [Tums Ultra 1,177 mg PO TID 12/16/15 01/07/19 07/03/16 21:00 History Strength 1177MG CHEW] Ergocalciferol [Vitamin D2] 1 cap PO QWEEK 12/16/15 01/07/19 06/28/16 09:00 History ISOSORBIDE MONOnitrate [Imdur ER] 30 mg PO DAILY #30 tab.er.24h 12/16/15 1 03/09/18 07/03/16 08:00 Rx Losartan [Cozaar] 25 mg PO QDAY #30 tablet 12/16/15 01/07/19 07/03/16 08:00 Rx Metoprolol Xl [Metoprolol 25 mg PO QDAY #30 tablet 12/16/15 01/07/19 07/04/16 07:30 Rx SUCCINATE ER TAB] Simvastatin [Zocor TAB] 40 mg PO QHS #30 tablet 12/16/15 01/07/19 06/30/16 21:00 Rx Dexlansoprazole [Dexilant] 60 mg PO QDAY #30 cap.bp 09/28/18 01/07/19 Unknown Rx Metoclopramide [Reglan] 10 mg PO TID #60 tab 09/28/18 01/07/19 Unknown Rx Ondansetron [Zofran Odt] 4 mg PO Q8HR PRN #14 tab.rapdis 11/10/18 01/07/19 Unknown Rx traMADoL [Ultram] 50 mg PO Q6HR PRN #14 tablet 11/10/18 01/07/19 Unknown Rx Active Medications: Generic Name Dose Route Start Last Admin Trade Name Freq PRN Reason Stop Dose Admin Acetaminophen 650 mg 01/05/19 21:55 01/07/19 00:14 Tylenol PO 650 mg Q4H PRN Administration Pain MILD(1-3)/Fever >100.5/[place]ON[place]O Acetaminophen/Hydrocodone Bitart 1 each 01/05/19 21:53 [place] 10/325 PO Q6HR PRN Pain, Moderate (4-6) Albumin Human 25 gm 01/07/19 13:19 01/07/19 17:00 Alburx 25% (Albumin) IV 25 gm KIKA PRN Administration Hypotension Aspirin 81 mg 01/05/19 22:00 01/09/19 09:25 Halfprin Ec PO 81 mg QDAY JOSH Administration Atorvastatin Calcium 40 mg 01/07/19 22:00 01/08/19 22:42 Lipitor PO 40 mg QHS JOSH Administration Calcium Acetate 667 mg 01/06/19 08:00 01/09/19 11:26 Phoslo PO 667 mg TIDWM JOSH Administration Famotidine 10 mg 01/05/19 22:00 01/09/19 09:25 Pepcid PO 10 mg BID JOSH Administration Hydromorphone HCl 0.5 mg 01/05/19 21:55 Dilaudid IV Q3H PRN Pain , Severe (7-10) Azithromycin 500 mg/ Sodium 250 mls @ 250 mls/hr 01/06/19 10:00 01/09/19 09:26 Chloride IV 250 mls/hr Q24HR JOSH Administration Protocol Sodium Chloride 100 mls @ 999 mls/hr 01/08/19 08:39 Nacl 0.9% IV KIKA PRN Hypotension Isosorbide Mononitrate 30 mg 01/06/19 10:00 01/09/19 09:26 Imdur PO Not Given DAILY JOSH Metoclopramide HCl 5 mg 01/06/19 07:30 01/09/19 11:26 Reglan PO 5 mg TIDAC JOSH Administration Metoprolol Succinate 25 mg 01/06/19 10:00 01/09/19 09:25 Metoprolol Xl PO Not Given QDAY JOSH Midodrine 10 mg 01/07/19 14:00 01/07/19 15:10 Proamatine PO 10 mg KIKA PRN Administration Hypertension Midodrine 10 mg 01/07/19 20:00 01/09/19 08:41 Proamatine PO 10 mg TID JOSH Administration Multivit/Ca Carb/B Cmplx/FA/Prenat 1 cap 01/06/19 10:00 01/09/19 09:25 Renal Caps PO 1 cap QDAY JOSH Administration Ondansetron HCl 4 mg 01/05/19 21:53 01/07/19 22:14 Zofran Odt PO 4 mg Q8HR PRN Administration Nausea And Vomiting Ondansetron HCl 4 mg 01/05/19 21:55 01/08/19 22:41 Zofran IV 4 mg Q8H PRN Administration Nausea And Vomiting Pravastatin Sodium 80 mg 01/05/19 22:00 01/08/19 22:46 Pravachol PO 80 mg QHS JOSH Administration Sodium Chloride 10 ml 01/05/19 22:00 01/09/19 09:25 Sodium Chloride Flush Syringe 10 Ml IV 10 ml BID JOSH Administration Sodium Chloride 10 ml 01/08/19 08:50 Sodium Chloride Flush Syringe 10 Ml IV PRN PRN LINE FLUSH Tramadol HCl 50 mg 01/05/19 21:53 Ultram PO Q6HR PRN Pain, Moderate (4-6)
--- NOTE | 2019-01-09 12:46 | Discharge Summary ---
Providers - Providers Date of Admission: 01/05/19 13:07 Attending physician: ZULMA VÁSQUEZ MD 01/05/19 21:55 Consult to Physician [CONS] Routine Comment: Consulting Provider: BRIANNA FIERRO Physician Instructions: Reason For Exam: CVA 01/05/19 21:58 Occupational Therapy Evaluate and Treat [CONS] Routine Comment: Reason For Exam: Neuro deficits Physical Therapy Evaluation and Treat [CONS] Routine Comment: Reason For Exam: Neuro deficits 01/06/19 16:06 Consult to Physician [CONS] Routine Comment: Consulting Provider: ERICH OLIVEIRA Physician Instructions: Reason For Exam: ESRD 01/07/19 09:48 Consult to Interventional Radiology [CONS] Routine Consulting Provider: MICHELLE TORRES Reason For Exam: Clotted hemodialysis access. Place consult to:: Dr. 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 Patient also had a temperature 101.3 and was hypotensive. Initial evaluation chest x-ray found patient to have left lower lobe pneumonia. Also had left-sided weakness. At present patient is awake alert and follows commands no evidence of weakness on extremities at this particular time patient speaks clearly. of emre bedside state patient is at baseline. Only little weaker. patient cannot advise where leg stent was placed he is back to baseline was not complaint with asa before, counselling given tobacco cessation also addressed and counselling given for 15 mins At this time Out patient MRI recommended and discussed with Neurology and patient and family - Patient Problems (1) Left-sided weakness secondary to TIA (2) CVA (cerebral vascular accident) Current Visit: Yes Status: Acute Qualifiers: CVA mechanism: unspecified Qualified Code(s): I63.9 - Cerebral infarction, unspecified Plan to address problem: CVA versus TIA. Left extremity weakness has resolved. CT scan only shows chronic ischemic changes. MRI cannot be performed as of yet secondary to stent placement in heart. Symptoms of weakness has resolved now. Could be all secondary to sepsis and pneumonia as well. (3) End stage renal disease on dialysis Current Visit: Yes Status: Acute Plan to address problem: Patient requires hemodialysis we'll obtain renal consult for hemodialysis. Dialysis catheter being replaced today due to clotted access (4) Febrile illness, acute Current Visit: Yes Status: Acute Plan to address problem: Sepsis septic shock. Secondary to pneumonia. (5) End-stage renal disease needing dialysis Current Visit: No Status: Acute (6) Septic shock Current Visit: Yes Status: Acute Plan to address problem: Patient was septic shock fever 102 hypotensive with clear etiology including left lower lobe pneumonia. We'll add vancomycin as well possibility of line sepsis. His processes patient is been noncompliant. Follow culture data. Supportive care hemodialysis and fluid if required. If patient develops persistent hypo-tension we'll transfer to ICU. BB AND ISOSORBID AND ARB HELD DUE TO PERSISTENT HYPOTENSION. (7) Coronary artery disease Current Visit: Yes Status: Acute Plan to address problem: Agent presently chest pain-free on Imdur afterload fountain dispenser. Disposition: DC- TO HOME OR SELFCARE Time spent for discharge: 35 mins Core Measure Documentation - Palliative Care Palliative Care/ Comfort Measures: Not Applicable - Core Measures Any of the following diagnoses?: none Exam - Physical Exam Narrative exam: General appearance: Present: no acute distress, cachectic, ambulating, no new complaints - EENT Eyes: Present: PERRL, EOM intact, irregular pupil - Neck Neck: Present: supple, normal ROM - Respiratory Respiratory effort: normal Respiratory: bilateral: CTA - Cardiovascular Rhythm: regular Heart Sounds: Present: S1 & S2 - Extremities Extremities: no ischemia, pulses intact, pulses symmetrical, No edema, normal temperature Peripheral Pulses: within normal limits - Abdominal General gastrointestinal: soft, non-tender, non-distended, hypoactive bowel sounds - Integumentary Integumentary: Present: clear, warm, dry - Psychiatric Psychiatric: appropriate mood/affect, intact judgment & insight, cooperative - Neurologic Neurologic: CNII-XII intact, moves all extremities - Constitutional Vitals: Temp Pulse Resp BP Pulse Ox 98.2 F 74 18 94/72 92 01/09/19 08:20 01/09/19 09:26 01/09/19 08:20 01/09/19 09:26 01/09/19 08:20 Plan Activity: advance as tolerated, fall precautions Diet: low fat Special Instructions: record daily weights, record daily BP diary, smoking cessation Additional Instructions: must follow with Primary care doctor and have MRI brain arranged via Primary care doctor Care Plan Goals: need MRI brain Follow up with: PRIMARY CARE, [Primary Care Provider] - 3-5 Days ISAI AUGUSTIN MD [Staff Physician] - 7 Days Prescriptions: AtorvaSTATin [Lipitor] 40 mg PO QHS #30 tablet Aspirin EC [Halfprin EC] 81 mg PO QDAY #30 levoFLOXacin [Levaquin TAB] 500 mg PO Q48H #6 tablet Famotidine [Pepcid] 10 mg PO BID #30 tablet Midodrine [Proamatine] 10 mg PO KIKA PRN #30 tablet PRN Reason: Hypertension Midodrine [Proamatine] 10 mg PO TID #90 tablet
--- NOTE | 2019-01-09 14:08 | Progress Note ---
Assessment and Plan Patient is a 58 y/o man w/ a h/o hypertension, coronary artery disease, hyperlipidemia, GERD, end-stage renal disease on hemodialysis, HBV, who p/w slurred speech and left sided weakness. According to the patient's clinical findings, he likely had a stroke or a TIA. Plan: 1. Stroke vs. TIA: - Check MRI/MRA- Pending, as patient has had peripheral arterial and coronary stents placed in the past, and radiology would like to confirm MRI-compatibility of stents prior to MRI. Outside records sent from [facility] did not indicate if stents placed were MRI-compatible or not. - Symptoms have resolved, and patient has been back at baseline. Possible TIA. - Echo: EF 35-40%, LA normal size, bubble study not done. - CT head unremarkable - LDL 69, cont. statin - Telemetry monitoring while in house - Cont. ASA - PT/OT/ST - DVT Ppx: recommend lovenox - Given that it has not been possible to obtain OSH records to clear patient for MRI based on previous stents placed, and patient does not know where stents were placed, it is recommended that patient have MRI brain as outpatient within next 1-2 weeks. Recommend for patient to follow up with his PCP, who would be able to arrange for outpatient MRI, and clearance for MRI based on previous records which he may have. Also recommend outpatient f/u with neurology in 2-3 weeks. 2. Hypertension: - Recommend BP goal of normotension, as it has been >48 hours since symptom onset. Thank you for allowing me to take part in the care of this patient. Vivek Hernandez MD Neurology Subjective Date of service: 01/09/19 Principal diagnosis: TIA Interval history: No acute events overnight. Objective - Exam Narrative Exam: Patient is awake, alert, oriented 4, follows complex commands. Pupils equal, round, reactive to light. Visual merchant full, EOMI, tongue midline, no facial weakness noted, bilaterally intact to light touch. 5/5 strength noted in all extremities. Bilaterally intact to light touch in all extremities. Bilaterally intact to finger to nose and heel to graham. 2+ reflexes throughout. Not noted to have any significant dysarthria or aphasia. - Vital Sign Vital Signs - 12hr 01/09/19 01/09/19 01/09/19 03:21 08:20 09:00 Temperature 97.7 F 98.2 F Pulse Rate 65 65 67 Pulse Rate [ Apical] Respiratory 16 18 Rate Blood Pressure 100/28 79/15 O2 Sat by Pulse 94 92 Oximetry 01/09/19 01/09/19 01/09/19 09:25 09:26 12:57 Temperature Pulse Rate 67 74 Pulse Rate [ 87 Apical] Respiratory 16 Rate Blood Pressure 94/72 94/72 O2 Sat by Pulse 95 Oximetry - General Apperance Constitutional: comfortable - EENT EENT: ATNC, PERRL, mucous membranes moist, hearing intact, vision intact - Respiratory Respiratory: lungs clear, normal breath sounds - Cardiovascular Cardiovascular: regular rate, normal S1, normal S2 Extremities: no clubbing, cyanosis, no inflammation - Gastrointestinal Gastrointestinal: normoactive bowel sounds, soft, non-tender - Integumentary Integumentary: normal - Musculoskeletal Musculoskeletal: no fluid collection, no pain - Psychiatric Psychiatric: mood/affect appropriate - Laboratory Findings CBC and BMP: 01/06/19 08:30 01/09/19 05:16 Abnormal Lab Findings: Abnormal Labs 01/05/19 01/05/19 01/05/19 11:18 11:18 11:18 RBC 3.53 L Hgb 10.3 L Hct 30.7 L RDW 19.9 H Plt Count 69 L Lymph % (Auto) Brantley % (Auto) Lymph # Brantley # Seg Neutrophils % Seg Neuts % (Manual) 72.0 H Monocytes % (Manual) 10.0 H Seg Neutrophils # Monocytes # (Manual) 0.9 H INR 1.17 H APTT 36.8 H VBG pH 7.497 H Sodium Potassium Chloride Carbon Dioxide BUN Creatinine Glucose Calcium Total Bilirubin Direct Bilirubin Troponin T Total Protein Albumin HDL Cholesterol Hep B Core IgM Ab 01/05/19 01/06/19 01/06/19 11:18 08:30 08:30 RBC Hgb 10.9 L Hct 32.9 L RDW 20.2 H Plt Count 68 L Lymph % (Auto) 8.6 L Brantley % (Auto) 13.1 H Lymph # 0.9 L Br[place]ley # 1.4 H Seg Neutrophils % 77.6 H Seg Neuts % (Manual) Monocytes % (Manual) Seg Neutrophils # 8.2 H Monocytes # (Manual) INR APTT VBG pH Sodium 132 L 133 L Potassium 3.3 L Chloride 92.6 L 92.2 L Carbon Dioxide 19 L 18 L BUN 32 H 48 H Creatinine 9.6 H 12.0 H Glucose 102 H Calcium 7.9 L 8.3 L Total Bilirubin 1.60 H 1.60 H Direct Bilirubin 0.7 H Troponin T 0.380 H* Total Protein 8.5 H 8.6 H Albumin 3.8 L 3.5 L HDL Cholesterol 34 L Hep B Core IgM Ab 01/07/19 01/07/19 01/09/19 09:13 14:38 05:16 RBC Hgb Hct RDW Plt Count Lymph % (Auto) Brantley % (Auto) Lymph # Br[place] # Seg Neutrophils % Seg Neuts % (Manual) Monocytes % (Manual) Seg Neutrophils # Monocytes # (Manual) INR APTT VBG pH Sodium 134 L Potassium Chloride 93.0 L Carbon Dioxide 17 L BUN 60 H Creatinine 13.4 H 5.9 H D Glucose 147 H Calcium 8.1 L Total Bilirubin Direct Bilirubin Troponin T Total Protein Albumin HDL Cholesterol Hep B Core IgM Ab Reactive A
== END 2019-01-09 14:27 | disposition home or self-care (01) | DRG 853 ==
LOC: ED 10:07 → 4A 13:07
PROVIDERS: ADMIT Internal Medicine; ATTEND Internal Medicine
PROC: 03753ZZ Dilation of Right Axillary Artery, Percutaneous Approach (ICD-10-PCS; principal; 2019-01-07)
PROC: 03WY37Z Revision of Autologous Tissue Substitute in Upper Artery, Percutaneous Approach (ICD-10-PCS; 2019-01-07)
PROC: B31H1ZZ Fluoroscopy of Right Upper Extremity Arteries using Low Osmolar Contrast (ICD-10-PCS; 2019-01-07)
PROC: B51W1ZZ Fluoroscopy of Dialysis Shunt/Fistula using Low Osmolar Contrast (ICD-10-PCS; 2019-01-07)
PROC: B54MZZA Ultrasonography of Right Upper Extremity Veins, Guidance (ICD-10-PCS; 2019-01-07)
PROC: 5A1D70Z Performance of Urinary Filtration, Intermittent, Less than 6 Hours Per Day (ICD-10-PCS; 2019-01-07)
PROC: 5A1D70Z Performance of Urinary Filtration, Intermittent, Less than 6 Hours Per Day (ICD-10-PCS; 2019-01-08)
DX: A41.9 Sepsis, unspecified organism (principal); I63.9 Cerebral infarction, unspecified; J18.9 Pneumonia, unspecified organism; R65.21 Severe sepsis with septic shock; N18.6 End stage renal disease; G81.94 Hemiplegia, unspecified affecting left nondominant side; I13.2 Hypertensive heart and chronic kidney disease with heart failure and with stage 5 chronic kidney disease, or end stage renal disease; J44.0 Chronic obstructive pulmonary disease with (acute) lower respiratory infection; T82.590A Other mechanical complication of surgically created arteriovenous fistula, initial encounter; D69.6 Thrombocytopenia, unspecified; K21.9 Gastro-esophageal reflux disease without esophagitis; I25.10 Atherosclerotic heart disease of native coronary artery without angina pectoris; E11.22 Type 2 diabetes mellitus with diabetic chronic kidney disease; E11.51 Type 2 diabetes mellitus with diabetic peripheral angiopathy without gangrene; F17.200 Nicotine dependence, unspecified, uncomplicated; R47.81 Slurred speech; D64.9 Anemia, unspecified; I50.9 Heart failure, unspecified; R29.708 NIHSS score 8; R94.31 Abnormal electrocardiogram [ECG] [EKG]; E87.6 Hypokalemia; Y83.2 Surgical operation with anastomosis, bypass or graft as the cause of abnormal reaction of the patient, or of later complication, without mention of misadventure at the time of the procedure; Y92.89 Other specified places as the place of occurrence of the external cause; Z99.2 Dependence on renal dialysis; Z82.49 Family history of ischemic heart disease and other diseases of the circulatory system; I25.2 Old myocardial infarction; Z90.49 Acquired absence of other specified parts of digestive tract; Z95.5 Presence of coronary angioplasty implant and graft; Z71.6 Tobacco abuse counseling
CPT/HCPCS: 36415; 36902; 70450; 71045; 76937; 80048; 80053; 80061; 80074; 80076; 80202; 82140; 82550; 82553; 82805; 82962; 83036; 83735; 84484; 85007; 85025; 85610; 85730; 87040; 93005; 93010; 93306; 93880; 99406; G0378; A9270-GY; C1725; C1751; C1769; C1894; J0456; J0692; J1644; J2250; J2405; J3010; J3370; J7030; J7040; J7050; P9047; Q0162; Q9967